=== PATIENT | male | born 1965 | race Caucasian/White ===

== ENCOUNTER → 2020-10-12 10:20 | Outpatient (BNV) | payer BC, SELFPAY | PROVIDERS: PCP Internal Medicine; Visit Provider Internal Medicine | DX: D72.819 Decreased white blood cell count, unspecified (principal) | CPT/HCPCS: 99213; 99214 ==

== ENCOUNTER 2020-10-30 11:09 | Outpatient (REF) | payer BC, SELFPAY ==
[2020-11-01 13:12] LABS: Transglutaminase Ab IgG 3 U/mL; Transglutaminase IgA 1 U/mL
[2020-11-01 15:56] LABS: Gliadin Deamidated IgA Ab 5 Units; Gliadin Deamidated IgG Ab 14 Units
[2020-11-01 17:57] LABS: Immunoglobulin A 183 mg/dL (47-310)
[2020-11-04 00:27] LABS: Endomysial IgA Antibody Negative (Negative)
== END 2020-10-30 11:10 | disposition home or self-care (01) ==
LOC: HO.LAB 11:09
PROVIDERS: PCP Internal Medicine; Visit Provider Internal Medicine
DX: R10.84 Generalized abdominal pain (principal)
CPT/HCPCS: 36415; 82784; 83516; 86255; 86256

== ENCOUNTER 2020-11-12 09:15 | Outpatient (REF) | payer BC, SELFPAY ==
--- NOTE | 2020-11-12 | US_ITS ---
EXAMINATION: US ABDOMEN COMPLETE CLINICAL INFORMATION: Abdominal pain. COMPARISON: None TECHNIQUE: Real-time imaging of the abdominal viscera. Technically difficult study secondary to bowel gas. FINDINGS: PANCREAS: Obscured by overlying bowel gas. ABDOMINAL AORTA: The proximal, mid, and distal segments are normal in caliber. INFERIOR VENA CAVA: Visualized portions are normal. LIVER: There is mildly homogeneously increased echotexture present consistent with fatty infiltration. The liver contour is normal. No focal hepatic lesion. There is no intrahepatic biliary duct dilatation seen. GALLBLADDER: Normal. The gallbladder is physiologically distended without evidence of stones, sludge, polyps, wall thickening or pericholecystic fluid. COMMON BILE DUCT: Normal in caliber measuring 0.3 cm in diameter. RIGHT KIDNEY: Normal. No hydronephrosis. No renal calculi or focal parenchymal lesions. The kidney measures 11.2 cm in maximum dimension. LEFT KIDNEY: Normal. No hydronephrosis. No renal calculi or focal parenchymal lesions. The kidney measures 11.8 cm in maximum dimension. SPLEEN: Normal. The spleen measures 13.3 cm in maximum dimension. FREE FLUID: None. US/US abdomen complete IMPRESSION: Fatty infiltration of the liver. Study somewhat limited due to overlying bowel gas.
== END 2020-11-12 09:16 | disposition home or self-care (01) ==
LOC: HO.US 09:15
PROVIDERS: PCP Internal Medicine; Visit Provider Internal Medicine
DX: R10.84 Generalized abdominal pain (principal)
CPT/HCPCS: 76700

== ENCOUNTER 2020-11-28 09:25 | Day surgery (SDC) | payer BC, SELFPAY ==
[2020-11-19 19:57] VITALS: BMI 30.1
--- NOTE | 2020-11-27 09:32 | P.CONAN_ITS ---
Documented by User: Dyan Browning 11/27/20 09:33 HPI - Anesthesia Eval Consult details Narrative: 55yo M for Upper Endoscopy and Colonoscopy [facility] Past Medical History Medical History Acne rosacea Arthritis Depression GERD (gastroesophageal reflux disease) Impotence Family History Family History Brother Pancreatic cancer Maternal Uncle Leukemia Colon cancer Maternal Uncle Liver cancer Father Heart disease Surgical History Surgical History H/O hand surgery History of colonoscopy Social History Social History Alcohol intake: current Alcohol intake frequency: a few times a week Smoking Status: Never smoker Tobacco Type: Cigarette Packs Per Day: 1 Second Hand Smoke Exposure: No Use of substances other than those prescribed or required for medical reasons: No Advance Directives: No Advance Directives Information Provided: No Advance Directives on File: No Recently lost weight without trying: No Meds Allergies Allergy/AdvReac Type Severity Reaction Status Date / Time SEASONAL ALLERGIES Allergy Mild ITCHY Uncoded 08/09/20 15:45 EYES, H/A, RUNNY NOSE Home Medications Medication Instructions Recorded Confirmed Type fluticasone propionate [Flonase] 1 spray INTRANASAL DAILY 09/10/20 11/19/20 History ergocalciferol (vitamin D2) 1,000 unit PO DAILY 10/12/20 11/19/20 History [Vitamin D2] tamsulosin 0.4 mg PO DAILY 10/12/20 11/19/20 History Exam Exam Date and Time: November 27, 2020 0932 Height,Weight and Vital Signs: Height 5 ft 10 in Weight 95.254 kg Pertinent Lab Results Pertinent Lab Results: Laboratory Tests 10/12/20 10/12/20 10:33 10:33 WBC 2.9 L Hgb 13.5 L Hct 38.9 L Plt Count 193 Sodium 139 Potassium 4.3 Chloride 105 Carbon Dioxide 27 BUN 18 H Creatinine 1.12 Assessment and Plan Assessment Anesthesia Assessment: Chart Reviewed Documented by User: Aurora Garcia 11/28/20 09:50 PMFSH Past Medical History Medical History Acne rosacea Arthritis Depression GERD (gastroesophageal reflux disease) Impotence Family History Family History Brother Pancreatic cancer Maternal Uncle Leukemia Colon cancer Maternal Uncle Liver cancer Father Heart disease Surgical History Surgical History H/O hand surgery History of colonoscopy Social History Social History Alcohol intake: current Alcohol intake frequency: a few times a week Smoking Status: Never smoker Tobacco Type: Cigarette Packs Per Day: 1 Second Hand Smoke Exposure: No Use of substances other than those prescribed or required for medical reasons: No Advance Directives: No Advance Directives Information Provided: No Advance Directives on File: No Recently lost weight without trying: No Meds Allergies Allergy/AdvReac Type Severity Reaction Status Date / Time SEASONAL ALLERGIES Allergy Mild ITCHY Uncoded 08/09/20 15:45 EYES, H/A, RUNNY NOSE Home Medications Medication Instructions Recorded Confirmed Type fluticasone propionate [Flonase] 1 spray INTRANASAL DAILY 09/10/20 11/19/20 History ergocalciferol (vitamin D2) 1,000 unit PO DAILY 10/12/20 11/19/20 History [Vitamin D2] tamsulosin 0.4 mg PO DAILY 10/12/20 11/19/20 History Exam Airway Mallampati Class: II TM Dist: >3cm Neck ROM: Full Heart: RRR Lungs: CTA BL Assessment and Plan Assessment Anesthesia Assessment: Anesthesia Plan Discussed and Chart Reviewed Final Anesthetic Review NPO: Yes (Sip water with med) ASA Class: II Final Preanesthetic Review: No Changes in Pt Med Stat and Consent Obtained/Reviewed Patient Risk: Intermediate Procedure Risk: Intermediate Anesthetic Plan Anesthetic Plan: MAC: Disposition: Standard PACU
[2020-11-28 09:48] VITALS: BP 117/72; PULSE 55; RESP 16; TEMP 36.1; O2SAT 98
[2020-11-28] MEDS: Lactated Ringers 1,000 ML 100 ML IVCONT (09:58)
[2020-11-28 10:14] VITALS: BP 123/69; PULSE 57; RESP 18; O2SAT 99
[2020-11-28 10:59] VITALS: BP 98/56; PULSE 51; RESP 12; TEMP 36.1; O2SAT 97
--- NOTE | 2020-11-28 11:01 | PM.OP ---
Brief Operative Note Date of Service: 11/28/20 Pre-op diagnosis: Screening, GERD Post-op diagnosis: other (Hiatal hernia, R/O Albarado's esophagus, R/O celiac disease, diverticulosis, Internal hemorrhoids) Procedure: EGD with biopsies, Colonoscopy to cecum and TI Surgeon: Darren Awan Anesthesia: MAC Estimated blood loss (mL): 3.0 Pathology: other (A. Descending duodenum B. EG Junction at 36cm C. Esophagus at 34cm) Condition: stable Disposition: PACU
[2020-11-28 11:14] VITALS: BP 123/64; PULSE 57; RESP 18; TEMP 36.1; O2SAT 99
--- NOTE | 2020-11-28 11:33 | OP_ITS ---
SURGEON: Darren Awan MD INDICATIONS: The patient presents for evaluation of gastroesophageal reflux, abdominal discomfort, colorectal cancer screening, and family history of colon cancer. Full consent was obtained from him for this, including risks of bleeding and perforation. PREOPERATIVE DIAGNOSIS: POSTOPERATIVE DIAGNOSIS: PROCEDURE PERFORMED: Esophagogastroduodenoscopy with biopsies and colonoscopy to cecum and terminal ileum. ESTIMATED BLOOD LOSS: COMPLICATIONS: ANESTHESIA: Monitored anesthesia care. ASSISTANTS: SPECIMENS: PREOPERATIVE DIAGNOSES: Gastroesophageal reflux, abdominal discomfort, colorectal cancer screening, and family history of colon cancer. POSTOPERATIVE DIAGNOSES: Gastroesophageal reflux, abdominal discomfort, colorectal cancer screening, family history of colon cancer, hiatal hernia, probable Albarado's esophagus, rule out celiac disease, sigmoid diverticulosis, and internal hemorrhoids. DESCRIPTION OF PROCEDURE: The patient was placed in the left lateral decubitus position. The Olympus video gastroscope was passed in the posterior oropharynx and upper esophagus under direct vision. The scope was passed slowly into the distal esophagus. The gastroesophageal junction appeared at 36 cm. Extending from this to 34 cm, was a circumferential segment of probable Albarado's mucosa. There was no sign of any esophageal lesions, ulceration, nor esophagitis. The scope was entered into the stomach. There was a hiatal hernia with the diaphragmatic indentation seen at 40 cm. The hiatal hernia mucosa appeared normal. The scope was advanced to the pylorus, and the duodenum was cannulated to the descending portion. The duodenum including the bulb appeared normal without mass or ulceration. Biopsies were obtained in the second and third portions of duodenum. The scope was withdrawn back into the stomach. The gastric antrum and body appeared normal with good peristalsis. Scope was retroflexed visualizing the proximal stomach carefully, which appeared normal, without any sign of mass or ulceration. Scope was straightened and withdrawn back into the esophagus. I then obtained multiple biopsies just above the EG junction at 36 cm and at the squamocolumnar junction at 34 cm. Proximal to 34 cm, the esophageal mucosa appeared normal. The scope was withdrawn from the patient. He was turned around for the colonoscopy. The digital rectal exam revealed no abnormalities. The Olympus video pediatric colonoscope was entered into the rectum and advanced to the cecum with the assistance of abdominal wall pressure. Once in the cecum, I did identify normal-appearing cecal pouch with appendiceal orifice and a normal-appearing ileocecal valve. The terminal ileum was cannulated and appeared normal. Scope was withdrawn back into the colon. The entire cecum and ileocecal valve appeared normal. The scope was slowly withdrawn assessing all mucosal surfaces carefully. Preparation was excellent. I did not visualize any sign of polyps, colitis, nor angiodysplasia. There was a mild amount of sigmoid diverticulosis. In the rectum, scope was retroflexed visualizing internal hemorrhoids, but no other pathology. The rectal mucosa appeared normal. The scope was straightened and withdrawn from the patient. He tolerated both the procedures well and was returned to the recovery area in stable condition. IMPRESSION: 1. Hiatal hernia, probable Albarado's esophagus. 2. Rule out celiac disease. 3. Diverticulosis. 4. Internal hemorrhoids. PLAN: The results of the biopsy will be checked. If there is evidence of Albarado's esophagus without dysplasia, I would recommend a repeat upper endoscopy in 3 years for further surveillance. He was advised to continue his daily omeprazole. I would recommend a repeat colonoscopy in 5 years for further screening. He was advised not to use any aspirin or NSAIDs for 1 week. A recent abdominal ultrasound was negative other than what appeared to be some fatty liver, although recent LFTs were normal. There were no evidence of any gallstones. If things are stable, he will see me on a p.r.n. basis. Of note, he has been doing better on a regimen of p.r.n. dicyclomine and I did advise him to continue that as well. MD CESAR Sexton/NEREIDA / [phone]
--- NOTE | 2020-11-28 11:35 | HO.POSTANES ---
Post Anesthesia Evaluation Post Anesthesia Evaluation Vital Signs: Vital Signs Temp Pulse Resp BP Pulse Ox 11/28/20 11:14 96.9 F 57 18 123/64 99 11/28/20 10:59 96.9 F 51 12 98/56 L 97 11/28/20 10:14 57 18 123/69 99 11/28/20 09:48 96.9 F 55 16 117/72 98 Anesthesia: Monitored Mental Status: Awake Pain Control: Satisfactory Nausea/Vomiting: None Hydration: Adequate Anesthesia-Related Issues: No Anes. Related Issues
== END 2020-11-28 11:45 | disposition home or self-care (01) ==
PROVIDERS: PCP Internal Medicine; Visit Provider Internal Medicine
PROC: (CPT 45378; principal; 2020-11-28 10:40)
DX: Z12.11 Encounter for screening for malignant neoplasm of colon (principal); Z80.0 Family history of malignant neoplasm of digestive organs; K57.30 Diverticulosis of large intestine without perforation or abscess without bleeding; K64.8 Other hemorrhoids; K21.9 Gastro-esophageal reflux disease without esophagitis; K44.9 Diaphragmatic hernia without obstruction or gangrene
CPT/HCPCS: 45378; 43239; 88305

== ENCOUNTER 2021-04-10 11:26 | Outpatient (REF) | payer BC, SELFPAY ==
[2021-04-10 14:29] LABS: Alanine Aminotransferase 22 U/L (0-40); Anion Gap 10 (12-20); Aspartate Amino Transferase 22 U/L (5-37); Blood Urea Nitrogen 18 mg/dL (9-16); Calcium 9.1 mg/dL (8.4-10.2); Carbon Dioxide 29 mmol/L (22-29); Chloride 105 mmol/L (96-108); Cholesterol 187 mg/dL; Creatinine Clr Calc Pharmacy 92.9; Estimated Glomerular Filt Rate > 60; Glucose Fasting 81 mg/dL (60-99); HDL Cholesterol 66 mg/dL; LDL Cholesterol Calculated 106 mg/dl; Potassium 4.4 mmol/L (3.3-5.1); Sodium 140 mmol/L (135-145); Triglycerides 76 mg/dL
[2021-04-10 14:55] LABS: Vitamin D 25-OH Total 31.6 ng/mL (>30)
== END 2021-04-10 11:27 | disposition home or self-care (01) ==
LOC: HO.HMGCLDS 11:26
PROVIDERS: PCP Internal Medicine; Visit Provider Internal Medicine
DX: Z00.01 Encounter for general adult medical examination with abnormal findings (principal); E55.9 Vitamin D deficiency, unspecified; I10 Essential (primary) hypertension
CPT/HCPCS: 36415; 80048; 80061; 82306; 84450; 84460

== ENCOUNTER 2022-05-05 08:36 | Outpatient (REF) | payer BC, SELFPAY ==
[2022-05-05 13:27] LABS: Alanine Aminotransferase 16 U/L (0-40); Anion Gap 13 (12-20); Aspartate Amino Transferase 21 U/L (5-37); Blood Urea Nitrogen 20 mg/dL (9-16); Calcium 8.9 mg/dL (8.4-10.2); Carbon Dioxide 26 mmol/L (22-29); Chloride 106 mmol/L (96-108); Cholesterol 189 mg/dL; Estimated Glomerular Filt Rate > 60; Glucose Fasting 95 mg/dL (60-99); HDL Cholesterol 71 mg/dL; LDL Cholesterol Calculated 109 mg/dl; Potassium 4.6 mmol/L (3.3-5.1); Sodium 140 mmol/L (135-145); Triglycerides 48 mg/dL
[2022-05-05 13:28] LABS: PSA,Total (Free>4and<10) 0.33 ng/mL (0.00-4.00); Vitamin D 25-OH Total 40.2 ng/mL (>30)
== END 2022-05-05 08:37 | disposition home or self-care (01) ==
LOC: HO.HMGCLDS 08:36
PROVIDERS: PCP Internal Medicine; Visit Provider Internal Medicine
DX: Z00.01 Encounter for general adult medical examination with abnormal findings (principal); Z12.5 Encounter for screening for malignant neoplasm of prostate; E55.9 Vitamin D deficiency, unspecified; F32.9 Major depressive disorder, single episode, unspecified
CPT/HCPCS: 36415; 80048; 80061; 82306; 84153; 84450; 84460

== ENCOUNTER 2023-03-06 06:20 | Outpatient (REF) | payer BC, SELFPAY ==
--- NOTE | ~2023-03-06 | XR_ITS ---
EXAMINATION: XR WRIST, LEFT CLINICAL INFORMATION: Wrist pain COMPARISON: None available. TECHNIQUE: 3 views of the left wrist. FINDINGS: Severe triscaphe joint arthritis. Moderate first CMC arthritis. No acute fracture or dislocation is seen. 2 mm density in the soft tissues volar to the first proximal phalanx shaft. 2 mm density in the dorsal subcutaneous tissues at the level of the distal radial metaphysis. These probably reflect foreign bodies. 1 mm punctate density in the volar soft tissues at the level of the carpal bones, which on the additional views this projected adjacent to the ulna styloid process. No bony erosion seen. XR/XR wrist LT min 3V IMPRESSION: *No acute osseous abnormality. *Severe triscaphe joint arthritis. Moderate first CMC arthritis. *Small radiopaque densities, probably reflecting foreign bodies . 2 mm foreign body, palmar to the first proximal phalanx. 2 mm foreign in the dorsal soft tissues at the level of the distal radial metaphysis. *Punctate density in the volar soft tissues at the level of the carpal bones, indeterminate, could represent nonspecific calcification or foreign body
== END 2023-03-06 06:21 | disposition home or self-care (01) ==
LOC: HO.HOSX 06:20
PROVIDERS: Visit Provider Physician Assistant
DX: M25.532 Pain in left wrist (principal); M18.12 Unilateral primary osteoarthritis of first carpometacarpal joint, left hand
CPT/HCPCS: 73110

== ENCOUNTER 2023-03-10 07:20 | Outpatient (REF) | payer BC, SELFPAY | END 2023-03-10 07:21 | disposition home or self-care (01) | LOC: HO.MDS 07:20 | PROVIDERS: PCP Internal Medicine; Visit Provider Internal Medicine | DX: D50.9 Iron deficiency anemia, unspecified (principal) | CPT/HCPCS: 96365; J1756 ==

== ENCOUNTER 2023-03-17 07:26 | Outpatient (REF) | payer BC, SELFPAY | END 2023-03-17 07:27 | disposition home or self-care (01) | LOC: HO.MDS 07:26 | PROVIDERS: Visit Provider Internal Medicine | DX: D50.9 Iron deficiency anemia, unspecified (principal) | CPT/HCPCS: 96365; J1756 ==

== ENCOUNTER 2023-03-23 08:24 | Outpatient (REF) | payer BC, SELFPAY | END 2023-03-23 08:25 | disposition home or self-care (01) | LOC: HO.MDS 08:24 | PROVIDERS: Visit Provider Internal Medicine | DX: D50.9 Iron deficiency anemia, unspecified (principal) | CPT/HCPCS: 96365; J1756 ==

== ENCOUNTER 2023-04-21 08:57 | Outpatient (REF) | payer BC, SELFPAY ==
--- NOTE | ~2023-04-21 | XR_ITS ---
EXAMINATION: XR WRIST, RIGHT CLINICAL INFORMATION: Right wrist pain. COMPARISON: Right hand x-rays of 01/05/2012 and right wrist x-rays of 04/18/2008. TECHNIQUE: Right wrist 3 views. PA, lateral, and oblique views of the right wrist. FINDINGS: Normal osseous mineralization is noted. There is fusion of the 1st intercarpal joint when compared to previous x-ray of 2008 with surrounding mild hypertrophic osteophytic changes. Mild osteoarthritic changes are noted at 1st carpometacarpal articulation. No focal erosion is seen. A 0.1 cm curvilinear radiopaque foreign body projecting on the ulnar aspect at the base of the 2nd proximal phalanx is a stable finding since previous x-ray of 2008. No soft tissue calcifications are seen. XR/XR wrist RT min 3V IMPRESSION: Osteoarthritic changes on the radial side of the wrist as described above; progressively increased since the previous study of 2007.
== END 2023-04-21 08:58 | disposition home or self-care (01) ==
LOC: HO.HOSX 08:57
PROVIDERS: PCP Internal Medicine; Visit Provider Orthopaedic Surgery
DX: M25.531 Pain in right wrist (principal); M18.12 Unilateral primary osteoarthritis of first carpometacarpal joint, left hand
CPT/HCPCS: 73110

== ENCOUNTER 2023-05-20 15:06 | Outpatient (REF) | payer BC, SELFPAY | END 2023-05-20 15:07 | disposition home or self-care (01) | LOC: HO.MRI 15:06 | PROVIDERS: PCP Internal Medicine; Visit Provider Orthopaedic Surgery | DX: M25.532 Pain in left wrist (principal) | CPT/HCPCS: 73221 ==

== ENCOUNTER 2023-07-01 11:08 | Outpatient (AMB) | payer BC, SELFPAY ==
[2023-07-01 11:26] VITALS: BMI 29.0
--- NOTE | 2023-07-01 11:26 | MHC.OFFVIS ---
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 Patient reports no change in symptoms since his last visit. Allergies SEASONAL ALLERGIES Allergy (Mild, Uncoded 07/01/23 11:28) ITCHY EYES, H/A, RUNNY NOSE HPI ov- Wrist LT MRI review HPI Details Collin is a 58 year old right hand dominant man who presents for an MRI review of his left wrist pain. 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 He denies any changes in his symptoms. He says he had difficulties checking in with the front [employer] He continues to have sharp pain in the dorsal aspect of his wrist, which is worse with overuse of his hand. He says his pain has been intermittent for ~9 months now, is worse at the end of a work shift, and is painful at night which is affecting his sleep. He says his pain has been somewhat improved in the last few weeks, as he says he has been doing different tasks at work this week. He also says he has numbness is in the back of his hand. Hx of partial right wrist fusion performed by Dr. Ortiz.?He has had more limited wrist range of motion following the surgery, but less pain. ? PENDING SALE TO [facility] Medical History Acne rosacea Anemia Annual visit for general adult medical examination with abnormal findings Arthritis Benign prostatic hyperplasia COVID-19 vaccination declined Esophagitis determined by biopsy GERD (gastroesophageal reflux disease) Hiatal hernia Impotence Pain and swelling of left wrist Recurrent major depressive disorder, in remission Refused influenza vaccine Vitamin D deficiency Surgical History H/O hand surgery History of colonoscopy Family History Brother Pancreatic cancer Maternal Uncle Leukemia Colon cancer Maternal Uncle Liver cancer Father Heart disease Social History Household Members: Spouse Housing: House Alcohol intake: current Alcohol intake frequency: a few times a week Patient Tobacco Use Status: Former Tobacco user Cigarette Packs Per Day: 1 e-Cigarette/Vaping Use: Never Used Second Hand Smoke Exposure: No 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) Current occupational status: employed 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, 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 Cognitive needs: No Hearing needs: No Vision needs: Yes Physical Exam Vital Signs: BMI result Body Mass Index 29.0 Extrem Other: Evaluation of Left Upper Extremity: The patient is alert, oriented, and in no acute distress Neuro: Median, Ulnar, Radial nerves motor and sensory intact and sensation is normal to the tips of all digits Vascular: Cap refill brisk ROM: He can make a fist with good strength and no pain, and extend all his digits Full and symmetrical pronosupination He has ~75 degrees flexion & about 75 degrees extension of his left wrist His left wrist ROM is better when compared to his right wrist. Tender over the basal joint Tender over the STT joint He was more tender over the mid-carpal joint Off these, the mid-carpal tended to be what bothers him the most Radiographs: 3 views left wrist from 03/06/23 were reviewed by me today in clinic. They show almost complete loss of the STT joint, and basal joint osteoarthritis, with osteophyte formation. He has some narrowing of the mid-carpal joint between the lunate and the capitate. Left wrist MRI: IMPRESSION: 1. There is arthritis in the wrist, detailed above. More prominent changes include severe triscaphe joint arthritis. There is capitate-lunate arthritis, with dorsal tilt of the lunate and dorsal subluxation of the capitate, as described above. ? 2. Moderate wrist joint effusion. Small distal radioulnar joint effusion. ? 3. Flexor carpi radialis tenosynovitis, with the probable component of tendinosis. ? 4. Scapholunate ligament degeneration with probable component of focal fraying/partial tear. Lunotriquetral ligament degeneration. ? 5. Proximal surface fraying/partial tear of the triangular fibrocartilage measuring 5 mm transverse. Dictated By: Aguilar Soto MD 05/25/23 Assessment & Plan Assessment & Plan (1) Left wrist pain: Code(s): M25.532 - Pain in left wrist (2) CMC arthritis, thumb, degenerative: Code(s): M18.9 - Osteoarthritis of first carpometacarpal joint, unspecified Plan Assessment & Plan: 1. Left wrist pain Improved over the last few weeks, with different activities at work. He is most tender to palpation directly over the midcarpal joint. He has more mild tenderness over the STT and basal joints. I educated him about this condition I discussed operative & non-operative treatment options, and reviewed his MRI with him We discussed a possible midcarpal joint arthrodesis. I would not recommend this at this time, as his pain is much better, it would reduce his range of motion and he would be off of work for several months during recovery. He agrees. Most importantly, his his wrist is feeling better with activity modification. Should he developed pain in his left wrist again, I would likely start with a wrist injection, and see if that might improve things He should continue with activity as tolerated and wear his wrist brace with heavier activities and when symptomatic 2. Left wrist osteoarthritis In the Basal joint & STT joint It appears he has lost almost all of the STT joint space, and may be working on an auto-arthrodesis of the STT joint 3. History of right STT arthrodesis Performed several years ago at an outside clinic He will follow up p.r.n.. He has my card. He is happy with the current plan Please note that greater than 25 minutes was spent with this patient going over the history, evaluating the patient and radiographs, formulating possible treatment options, discussing them with the patient, and documenting the visit. Scribed for Hannah Perez MD by Hardik Mchugh, medical and scientific illustrator, on 07/01/23 at 12:10 PM, EST. Coding Level of Care Code Est Pt Level 4 (81859) Diagnoses Left wrist pain M25.532 CMC arthritis, thumb, degenerative M18.9
== END 2023-07-01 12:18 | disposition home or self-care (01) ==
LOC: HO.HOS 11:08
PROVIDERS: PCP Internal Medicine; Visit Provider Orthopaedic Surgery
DX: M25.532 Pain in left wrist (principal); M18.9 Osteoarthritis of first carpometacarpal joint, unspecified
CPT/HCPCS: 99213

== ENCOUNTER → 2023-07-01 11:08 | Outpatient (BNVA) | payer BC, SELFPAY | PROVIDERS: PCP Internal Medicine; Visit Provider Orthopaedic Surgery ==

== ENCOUNTER 2024-03-22 13:44 | Outpatient (REF) | payer BC, SELFPAY ==
--- NOTE | ~2024-03-22 | FL_ITS ---
EXAMINATION: XR FLUOROSCOPY WITH IMAGES CLINICAL INFORMATION: Primary osteoarthritis. COMPARISON: None available. TECHNIQUE: Fluoroscopy Supervised By: Dr. Perez. Fluoroscopy Time: 7.7 sec. Cumulative Dose: Not documented. DAP: 5336.8 Gycm2. Images: 1. FINDINGS: Intraoperative fluoroscopy and spot films were performed during a procedure in the OR. A needle is present overlying the radiocarpal joint Please correlate with Dr. Perez' report for complete details. FL/FL guided needle placement IMPRESSION: Intraoperative fluoroscopy and spot films were obtained. Please see Dr. Perez' report for complete details.
== END 2024-03-22 13:45 | disposition home or self-care (01) ==
LOC: HO.HOSX 13:44
PROVIDERS: PCP Internal Medicine; Visit Provider Orthopaedic Surgery
DX: M19.032 Primary osteoarthritis, left wrist (principal)
CPT/HCPCS: 20605; 77002; J1010

== ENCOUNTER 2024-03-22 13:44 | Outpatient (AMB) | payer BC, SELFPAY ==
[2024-03-22 14:14] VITALS: BMI 29.8
--- NOTE | 2024-03-22 14:14 | MHC.OFFVIS ---
Vital Signs 03/22/24 14:14 Height 5 ft 11 in Weight 214 lb BMI 29.8 Intake Visit Reasons: O/V left hand CMC OA Intake Note: Collin 58 yr old male presents today for his follow up visit for his left hand CMC OA to discuss injection. States his pain has not improved. He tries to use his brace at work but it interferers with his work. Patient would like to discuss injection. Allergies SEASONAL ALLERGIES Allergy (Mild, Uncoded 03/22/24 14:20) ITCHY EYES, H/A, RUNNY NOSE HPI HPI O/V left hand CMC OA: Details: Collin is a 58 year old right hand dominant man who returns to discuss his left wrist pain. 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 He denies any changes in his symptoms. He continues to have sharp pain in the dorsal aspect of his wrist, which is worse with overuse of his hand. He says his pain has been intermittent for ~17 months now, is worse at the end of a work shift, and is painful at night which is affecting his sleep. He has tried wearing his wrist brace at work but this interferes with his duties & performance. He says he smashed his fingers recently while at work. He says he had bruising under his nail which has been growing out. He also says he has numbness is in the back of his hand. Hx of partial right wrist fusion performed by Dr. Ortiz.?He has had more limited wrist range of motion following the surgery, but less pain. ? [facility] Medical History Acne rosacea Anemia Annual visit for general adult medical examination with abnormal findings Arthritis Benign prostatic hyperplasia COVID-19 vaccination declined Esophagitis determined by biopsy GERD (gastroesophageal reflux disease) Hiatal hernia Impotence Pain and swelling of left wrist Recurrent major depressive disorder, in remission Refused influenza vaccine Vitamin D deficiency Surgical History History of colonoscopy H/O hand surgery Family History Brother Pancreatic cancer Maternal Uncle Leukemia Colon cancer Maternal Uncle Liver cancer Father Heart disease Social History (Reviewed 03/22/24 @ 14:20 by PIEDAD Bennett Household Members: Spouse Housing: House Alcohol intake: current Alcohol intake frequency: a few times a week Patient Tobacco Use Status: Former Tobacco user Cigarette Packs Per Day: 1 e-Cigarette/Vaping Use: Never Used Second Hand 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 Exposure: 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, 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 Cognitive needs: No Hearing needs: No Vision needs: Yes Physical Exam Vital Signs: BMI result Body Mass Index 29.8 Extrem Other: Evaluation of Left Upper Extremity: The patient is alert, oriented, and in no acute distress Neuro: Median, Ulnar, Radial nerves motor and sensory intact and sensation is normal to the tips of all digits Vascular: Cap refill brisk ROM: He can make a fist with good strength and no pain, and extend all his digits Full and symmetrical pronosupination He has ~75 degrees flexion & about 75 degrees extension of his left wrist His left wrist ROM is better when compared to his right wrist. No tenderness over the STT joint Most tender over the radioscaphoid joint, both volarly and proximally. This was confirmed on fluoroscopic images. Radiographs: 3 views left wrist from 03/06/23 were reviewed by me today in clinic. They show almost complete loss of the STT joint, and basal joint osteoarthritis, with osteophyte formation. He has some narrowing of the mid-carpal joint between the lunate and the capitate. Left wrist MRI: IMPRESSION: 1. There is arthritis in the wrist, detailed above. More prominent changes include severe triscaphe joint arthritis. There is capitate-lunate arthritis, with dorsal tilt of the lunate and dorsal subluxation of the capitate, as described above. ? 2. Moderate wrist joint effusion. Small distal radioulnar joint effusion. ? 3. Flexor carpi radialis tenosynovitis, with the probable component of tendinosis. ? 4. Scapholunate ligament degeneration with probable component of focal fraying/partial tear. Lunotriquetral ligament degeneration. ? 5. Proximal surface fraying/partial tear of the triangular fibrocartilage measuring 5 mm transverse. Dictated By: Aguilar Soto MD 05/25/23 Office Procedures Fracture Care Details: No fracture, injection 29145, and 58070 for using the FluoroScan for needle guidance. Fracture Billing Code: Fracture Billing Code Assessment & Plan Assessment & Plan (1) Left wrist pain: Code(s): M25.532 - Pain in left wrist Category: Medical (2) CMC arthritis, thumb, degenerative: Code(s): M18.9 - Osteoarthritis of first carpometacarpal joint, unspecified Category: Medical (3) Arthritis of left wrist: Code(s): M19.032 - Primary osteoarthritis, left wrist Category: Medical Plan Assessment & Plan: 1. Left wrist midcarpal osteoarthritis He is most tender to palpation directly over the radioscaphoidjoint. 2. Left STT joint osteoarthritis Near complete loss at the STT joint Minimal tenderness over the STT joint today Evidence of narrowing between the lunate & capitate, and between the capitate & trapezoid It appears he has lost almost all of the STT joint space, and may be working on an auto-arthrodesis of the STT joint 3. Left radiocarpal arthritis He was most tender to palpation today over the radioscaphoid joint both dorsally and volarly. This Was confirmed on fluoroscopic images. I educated him about these conditions I discussed operative & non-operative treatment options We discussed a possible partial wrist arthrodesis in the future if his symptoms do not improve. We would both like to avoid this if possible. I discussed activity modification, he should limit or avoid any heavy or repetitive pinching, gripping, or lifting activities He was given a new comfort cool brace to wear with heavy activities, and while at work. I recommend a left wrist injection, and he is in agreement Injection #1 : The risks and benefits of a steroid injection including but not limited to risk of damage to blood vessels, nerve, tendon, infection, skin bleaching, persistent or worsening pain, and failure to improve symptoms were discussed with the patient and they wish to proceed with the steroid injection. Using the FluoroScan we confirmed that he was most tender to palpation over the radioscaphoid joint. He was not tender to palpation over the STT joint. Once consent was obtained the skin over the dorsal aspect of the radioscaphoid joint, just proximal to the scapholunate interval was sterilely prepped. The joint was then injected with a combination of 1 mL of (40 mg/ml} Depo-Medrol and 1% plain Lidocaine, using the Fluoroscan for needle guidance. The patient appears to have tolerated the procedure well and with no complications. He had good early relief before leaving clinic today. He knows that they may not have another steroid injection into this joint for least 4 months. He will follow up in 6-8 weeks to see how he is doing. Originally we had thought that he might get a 2nd injection into the ulnocarpal joint when we thought he was 1st having STT arthritis. We will evaluate him at that time and see how he is doing. I did warn him that we can not inject into the same joint for 4 months. 2. History of right STT arthrodesis, DOS: ~[address] Ortiz at an outside clinic Please note that greater than 35 minutes was spent with this patient going over the history, evaluating the patient and radiographs, formulating possible treatment options, discussing them with the patient, and documenting the visit. Scribed for Hannah Perez MD by Hardik Mchugh, biomedical equipment technician, on 03/22/24 at 2:40 PM, EST. Orders: Orders FL guided needle placement Today M19.032 - Primary osteoarthritis, left wrist Coding Level of Care Code Est Pt Level 4 (65849) Diagnoses Left wrist pain M25.532 CMC arthritis, thumb, degenerative M18.9 Arthritis of left wrist M19.032 CPT Codes Fracture Care - Fracture Billing Code: Fracture Billing Code ([id number])
== END 2024-03-22 15:03 | disposition home or self-care (01) ==
PROVIDERS: PCP Internal Medicine; Visit Provider Orthopaedic Surgery
DX: M25.532 Pain in left wrist (principal); M19.032 Primary osteoarthritis, left wrist; M18.9 Osteoarthritis of first carpometacarpal joint, unspecified
CPT/HCPCS: 20605; 77002; 99214

== ENCOUNTER 2024-04-20 09:19 | Outpatient (AMB) | payer BC, SELFPAY ==
[2024-04-20 09:40] VITALS: BP 106/62; PULSE 60; O2SAT 97; BMI 29.3
--- NOTE | 2024-04-20 09:40 | A.OFFPC_ITS ---
Vital Signs 04/20/24 09:40 Height 5 ft 11 in Weight 210 lb BMI 29.3 BP 106/62 Blood Pressure Location Lt brachial Position Sitting Pulse 60 Pulse Source Pulse Oximeter Pulse Oximetry (%) 97 Oxygen Delivery Method Room Air Intake Visit Reasons: PE Intake Note: Pt is here today for his PE: Last colonoscopy 11/28/20 Allergies No Known Allergies Allergy (Verified 11/28/24 02:30) Medication List - Last Reconciled 04/20/24 by Rina Hernandez MD citalopram 40 mg (2 x 20 mg) PO DAILY 90 days ibuprofen 200 mg PO Q6H PRN magnesium oxide 250 mg PO DAILY omeprazole 20 mg PO DAILY tamsulosin 0.4 mg PO DAILY Tobacco use date assessed: 04/20/24 Dental Screening Dental Screen Date: 04/20/24 Did you have a dental visit in the last 12 months?: Yes Did you have a dental problem in the last 6 months where you did not have access to dental care?: No Was dental information given to patient?: Patient has dentist HPI PE HPI Details 59-year-old male with past medical histo ry significant for osteoarthritis, benign prostatic hyperplasia, recurrent major depression in remission, and esophagitis determined by biopsy on EGD done in 2020 as well as hiatal hernia, here today for physical exam. He is up-to-date with his screening colonoscopy done in 2020 which showed presence of diverticulosis and internal hemorrhoids, done by Dr. Awan, with a repeat colonoscopy due again in 2025. He is up-to-date with his Shingrix vaccination given at the [facility] 2 years ago. Up-to-date with his Tdap and has had 2 COVID vaccines but does not want to get a COVID booster. Reminded to get his flu shot [facility] Medical History Iron deficiency anemia Seasonal allergies Benign prostatic hyperplasia Recurrent major depressive disorder, in remission Annual visit for general adult medical examination with abnormal findings Pain and swelling of left wrist COVID-19 vaccination declined Refused influenza vaccine Esophagitis determined by biopsy Hiatal hernia Vitamin D deficiency Anemia GERD (gastroesophageal reflux disease) Impotence Arthritis Acne rosacea Surgical History History of colonoscopy H/O hand surgery Family History Brother Pancreatic cancer Maternal Uncle Leukemia Colon cancer Maternal Uncle Liver cancer Father Heart disease Social History Household Members: Spouse Housing: House Alcohol intake: current Alcohol intake frequency: a few times a week Patient Tobacco Use Status: Former Tobacco user Cigarette Packs Per Day: 1 e-Cigarette/Vaping Use: Never Used Second Hand Smoke Exposure: No service: Yes ([employer]) Current occupational status: employed 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 1. Little interest or pleasure in doing things: not at all 2. Feeling down, depressed, or hopeless: not at all 3. Trouble falling or staying asleep, or sleeping too much: several days 4. Feeling tired or having little energy: several days 5. Poor appetite or overeating: not at all 6. Feeling bad about yourself - or that you are a failure or have let yourself or your family down: not at all 7. Trouble concentrating on things, such as reading the newspaper or watching television: several days 8. Moving or speaking so slowly that other people could have noticed. Or the opposite - being so fidgety or restless that you have been moving around a lot more than usual: not at all 9. Thoughts that you would be better off or of hurting yourself in some way: not at all Total score: 3 Depression Screening Interpretation: Positive (Currently on citalopram mg daily) Depression Screening Follow-up: Existing condition, In treatment and Community Mental Health Worker F/U Depression Screening Done: Yes Source: Developed by Drs. Darren Herrera, Michelle Talavera, Josesito Alvarado and colleagues, with an educational vanna from [employer]. Thrive Questionnaire Date Thrive assessed: 04/20/24 I am a: Patient What is your living situation today?: I have a steady place to live Within the past 12 months, did the food you bought not last and you didn't have the money to get more?: Never true Within the past 12 months, did you worry whether your food would run out before you got money to buy more?: Never true Do you have trouble paying for medicines?: No Do you have trouble getting transportation to medical appointments?: No Do you have trouble paying your heating and electricity bill?: No Do you have trouble taking care of your child, family member or friend?: No Do you have trouble with day-to-day activities such as bathing, preparing meals, shopping, managing finances, etc.?: No Are you currently unemployed and looking for a job?: No Are you interested in more education?: No Please select the resources that you would like help with: None THRIVE Score: 0 AUDIT C Alcohol Use Questionnaire (AUDIT-C) 1. How often do you have a drink containing alcohol?: 2-4 times a month 2. How many drinks containing alcohol do you have on a typical day when you are drinking?: 1 or 2 3. How often do you have six or more drinks on one occasion?: Less than monthly Total Score: 3 IRIS-7 AMB Questionnaire IRIS-7 Date IRIS - 7 assessed: 04/20/24 Feeling nervous, anxious, or on edge: 1 = Several days Not being able to stop or control worryin = Not at all Worrying too much about different things: 1 = Several days Trouble relaxin = Several days Being so restless that it is hard to sit still: 1 = Several days Becoming easily annoyed or irritable: 1 = Several days Feeling afraid as if something awful might happen: 0 = Not at all Total IRIS-7 score (0-4 normal; 5-9 mild; 10-14 moderate; 15-21 severe): 5 Source: Developed by Drs. Darren Herrera, Michelle Talavera, Josesito Alvarado and colleagues, with an educational vanna from [employer]. IRIS-7 Assessment Billing IRIS-7 Assessment Tool: IRIS-7 Assessment 22371 Review of Systems Const Denies body aches, Denies fatigue, Denies fever(s), Denies headache(s) and Denies weakness Eyes Denies change in vision ENT Denies dizziness and Denies headache(s) Card Denies chest pain, Denies lightheadedness, Denies palpitations and Denies dyspnea Resp Denies cough and Denies dyspnea GI Reports no additional complaints Denies urinary frequency and Denies urinary urgency Musc Reports as per HPI Skin/Breast Denies lesions and Denies rash Neuro Denies dizziness, Denies headache(s) and Denies weakness Psych Reports no additional complaints Endo Denies fatigue, Denies polydipsia, Denies polyuria and Denies palpitations Jony/Lymph Denies easy bruising Aller/Immun Denies seasonal rhinorrhea Physical exam (Primary Care) Vital Signs: Last Vital Signs Pulse 60 04/20/24 09:40 BP 106/62 04/20/24 09:40 Pulse Ox 97 04/20/24 09:40 Oxygen Delivery Method Room Air 04/20/24 09:40 BMI result Body Mass Index 29.3 Tobacco/Smoking Status: Tobacco use Status Tobacco use date assessed 04/20/24 04/20/24 09:42 Patient Tobacco Use Status Former Tobacco user 04/20/24 09:41 e-Cigarette/Vaping Use Never Used 04/20/24 09:41 PHQ-9: PHQ-9 Score PHQ-9: Total score 5 04/20/24 10:33 Depression Screening Interpretation: Positive (Currently on citalopram mg daily) Depression Screening Follow-up: Existing condition, In treatment and Community Mental Health Worker F/U Thrive Assessment: Date of Thrive Assessment Date Thrive assessed 04/20/24 04/20/24 09:46 Const General: cooperative, comfortable and no acute distress Orientation/consciousness: patient oriented x3 HENMT Head: Yes normocephalic Ears: hearing grossly normal bilaterally, external ears normal, TM's normal bilaterally and EAC's normal General nose exam: Normal external nose present Face and sinus: Yes face symmetric Mouth: Normal oral and palatal mucosa present, oropharynx normal and moist mucous membranes Eyes General: appearance normal, both eyes and all related structures Neck Neck: Yes full ROM, Yes no lymphadenopathy and Yes supple Chest Chest palpation & inspection: normal inspection of the chest and normal palpation of entire chest wall Resp Effort & Inspection: normal respiratory effort and able to speak in complete sentences Auscultation: clear to auscultation bilaterally Cardio Rate: regular rate Rhythm: regular rhythm Heart sounds: S1 normal heart sound present and S2 normal heart sound present GI Palpation (GI): Soft to palpation, nontender, no guarding and no masses Male General Exam: Yes normal external exam Back/Spine/Pelvis Thoracic/Lumbar Spine: straight leg raise negative bilaterally and paraspinal muscle tenderness on the right in the lower lumbar Skin General skin exam: no rashes or lesions noted Neuro General: patient oriented x3, gait normal, moves all extremities and no focal motor deficits Cognition (Neuro): normal cognition Gait exam (Neuro): Normal gait present Extrem General: Yes full ROM, Yes no joint enlargement, Yes no clubbing, cyanosis or edema and Yes normal gait Psych Appearance: grossly normal Mental Status: mental status grossly normal Speech and movement: Normal speech and movement present Affect: normal affect Attitude: cooperative Thought process: Normal thought process present Thought content: Normal thought content present Coding Level of Care Code Est Pt Prev Care 40-64y(90128) Diagnoses Leucopenia D72.819 Anemia D64.9 Esophagitis determined by biopsy K20.90 Refused influenza vaccine Z28.21 COVID-19 vaccination declined Z28.21 CMC arthritis, thumb, degenerative M18.9 Annual visit for general adult medical examination with abnormal findings Z00.01 Recurrent major depressive disorder, in remission F33.40 Benign prostatic hyperplasia N40.0 Additional Codes IRIS-7 Assessment Billing - IRIS-7 Assessment Tool: IRIS-7 Assessment 19931 ([id number])
== END 2024-04-20 11:33 | disposition home or self-care (01) ==
PROVIDERS: Visit Provider Internal Medicine
DX: D72.819 Decreased white blood cell count, unspecified (principal); D64.9 Anemia, unspecified; K20.90 Esophagitis, unspecified without bleeding; Z28.21 Immunization not carried out because of patient refusal; M18.9 Osteoarthritis of first carpometacarpal joint, unspecified; Z00.01 Encounter for general adult medical examination with abnormal findings; F33.40 Major depressive disorder, recurrent, in remission, unspecified; N40.0 Benign prostatic hyperplasia without lower urinary tract symptoms
CPT/HCPCS: 99499

== ENCOUNTER 2024-05-23 09:23 | Day surgery (SDC) | payer BC, SELFPAY ==
--- NOTE | 2024-05-20 09:23 | HO.ANESPROP2 ---
Documented by User: Dyan Browning NP 05/20/24 09:23 HPI - Anesthesia Eval Consult details Narrative: 58yo M for Upper Endoscopy PMF Active Problems Active Problems: All Active Problems Arthritis of left wrist (Acute) Left wrist pain (Acute) CMC arthritis, thumb, degenerative (Acute) Leucopenia (Chronic) Benign prostatic hyperplasia (Acute) Recurrent major depressive disorder, in remission (Acute) Annual visit for general adult medical examination with abnormal findings (Acute) COVID-19 vaccination declined (Acute) Refused influenza vaccine (Acute) Esophagitis determined by biopsy (Acute) Hiatal hernia (Acute) Anemia (Acute) Past Medical History Medical History Seasonal allergies Benign prostatic hyperplasia Recurrent major depressive disorder, in remission Annual visit for general adult medical examination with abnormal findings Pain and swelling of left wrist COVID-19 vaccination declined Refused influenza vaccine Esophagitis determined by biopsy Hiatal hernia Vitamin D deficiency Anemia GERD (gastroesophageal reflux disease) Impotence Arthritis Acne rosacea Family History Family History Brother Pancreatic cancer Maternal Uncle Leukemia Colon cancer Maternal Uncle Liver cancer Father Heart disease Surgical History Surgical History History of colonoscopy H/O hand surgery Social History Social History Household Members: Spouse Housing: House Alcohol intake: current Alcohol intake frequency: a few times a week Patient Tobacco Use Status: Former Tobacco user Cigarette Packs Per Day: 1 e-Cigarette/Vaping Use: Never Used 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, 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 Cognitive needs: No Hearing needs: No Vision needs: Yes Meds Allergies Allergy/AdvReac Type Severity Reaction Status Date / Time No Known Allergies Allergy Verified 05/19/24 17:28 Home Medications ?Medication ?Instructions ?Recorded ?Confirmed ?Last Taken ?Type ibuprofen 200 mg tablet 200 mg PO Q6H PRN Pain, Mild 04/16/23 10/12/23 Unknown History Assessment and Plan Assessment Anesthesia Assessment: Chart Reviewed Documented by User: Anusha Ceron MD 05/23/24 10:36 [facility] Past Medical History Medical History Seasonal allergies Benign prostatic hyperplasia Recurrent major depressive disorder, in remission Annual visit for general adult medical examination with abnormal findings Pain and swelling of left wrist COVID-19 vaccination declined Refused influenza vaccine Esophagitis determined by biopsy Hiatal hernia Vitamin D deficiency Anemia GERD (gastroesophageal reflux disease) Impotence Arthritis Acne rosacea Family History Family History Brother Pancreatic cancer Maternal Uncle Leukemia Colon cancer Maternal Uncle Liver cancer Father Heart disease Family history of problems with anesthesia: No Surgical History Surgical History History of colonoscopy H/O hand surgery History of Problems with Anesthesia: No Social History Social History Household Members: Spouse Housing: House Alcohol intake: current Alcohol intake frequency: a few times a week Patient Tobacco Use Status: Former Tobacco user Cigarette Packs Per Day: 1 e-Cigarette/Vaping Use: Never Used 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, 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 Cognitive needs: No Hearing needs: No Vision needs: Yes Meds Allergies Allergy/AdvReac Type Severity Reaction Status Date / Time No Known Allergies Allergy Verified 05/19/24 17:28 Home Medications ?Medication ?Instructions ?Recorded ?Confirmed ?Last Taken ?Type ibuprofen 200 mg tablet 200 mg PO Q6H PRN Pain, Mild 04/16/23 10/12/23 Unknown History Exam Height,Weight and Vital Signs: Height 5 ft 11 in Weight 92.533 kg Vital Signs Temp Pulse Resp BP Pulse Ox O2 Del Method 97.6 F 51 16 127/66 97 Room Air 05/23/24 09:53 05/23/24 09:53 05/23/24 09:53 05/23/24 09:53 05/23/24 09:53 05/23/24 09:53 Airway Mallampati Class: II Loose/Missing/Broken Teeth: Yes (Some missing. Denies broken or loose teeth) Heart: RRR Lungs: CTAB Assessment and Plan Assessment Anesthesia Assessment: Anesthesia Plan Discussed and Chart Reviewed Final Anesthetic Review Family History of Problems with Anesthesia: No History of Problems with Anesthesia: No NPO: Yes ASA Class: II Final Preanesthetic Review: No Changes in Pt Med Stat, Meds/Allgs Chart Reviewed, Consent Obtained/Reviewed and Anes Risks/Benef Reviewed Patient Risk: Low Procedure Risk: Low Assessment/Block/Sedation in SS: Assess/Block/Sedation-SS Anesthetic Plan Anesthetic Plan: GA and TIVA Disposition: Standard PACU
[2024-05-23 09:32] VITALS: BMI 28.4
[2024-05-23 09:53] VITALS: BP 127/66; PULSE 51; RESP 16; TEMP 36.4; O2SAT 97
[2024-05-23] MEDS: Lactated Ringers 1,000 ML 100 ML IVCONT (10:03)
[2024-05-23 10:31] VITALS: BP 107/45; PULSE 51; RESP 12; TEMP 36.1; O2SAT 95
--- NOTE | 2024-05-23 10:34 | PM.OP ---
Brief Operative Note Date of Service: 05/23/24 Pre-op diagnosis: Albarado's Post-op diagnosis: other (Same, Hiatal hernia) Procedure: EGD with biopsies, WATS brushingsMonica Surgeon: Darren Awan MD Anesthesia: MAC Was an Senior Windows Administrator used for this Procedure?: No Estimated blood loss (mL): 2.0 Pathology: other (A. Esophagus 34-36cm) Condition: stable Disposition: PACU
[2024-05-23 10:46] VITALS: BP 125/69; PULSE 54; RESP 16; TEMP 36.1; O2SAT 97
--- NOTE | 2024-05-23 11:28 | OP_ITS ---
DATE OF SERVICE: 05/23/2024 SURGEON: Darren Awan MD INDICATIONS: The patient presents for evaluation of gastroesophageal reflux and Albarado esophagus. Full consent was obtained from him for this, including risks of bleeding and perforation. PREOPERATIVE DIAGNOSIS: POSTOPERATIVE DIAGNOSIS: PROCEDURE PERFORMED: Esophagogastroduodenoscopy with biopsies, WATS brushings, and Cypher tissue analysis. ESTIMATED BLOOD LOSS: COMPLICATIONS: ANESTHESIA: Monitored anesthesia care. ASSISTANTS: SPECIMENS: PREOPERATIVE DIAGNOSES: Gastroesophageal reflux and Albarado esophagus. POSTOPERATIVE DIAGNOSES: Gastroesophageal reflux and Albarado esophagus, hiatal hernia. DESCRIPTION OF PROCEDURE: The patient was placed in the left lateral decubitus position. The Olympus video-gastroscope was passed in the posterior oropharynx and upper esophagus under direct vision. The scope was passed slowly into the distal esophagus. The gastroesophageal junction appeared at 36 cm. Extending from this to 34 cm was a circumferential segment of Albarado mucosa with some Islands of squamous mucosa. There is no evidence of any esophagitis nor any lesions. The scope entered the stomach. There was a moderate-sized hiatal hernia. The diaphragmatic indentation was seen at approximately 40 cm. The hiatal hernia mucosa appeared normal. The scope was advanced to pylorus and the duodenum was cannulated in the descending portion. The duodenum including the bulb appeared normal without mass or ulceration. The scope was withdrawn back to the stomach. The gastric antrum and body appeared normal with good peristalsis. Scope was retroflexed, visualizing the proximal stomach carefully, which appeared normal, without any sign of mass or ulceration. Scope was straightened and now withdrawn back to the esophagus. Multiple biopsies were obtained between 34 and 36 cm. I then obtained WATS brushings between 34 and 36 cm. Proximal to 34 cm, the esophageal mucosa appeared normal. The scope was withdrawn from the patient. He tolerated the procedure well and was returned to recovery area in stable condition. IMPRESSION: 1. Albarado esophagus. 2. Hiatal hernia. 3. Gastroesophageal reflux. PLAN: The results of biopsies will be checked. If there is no dysplasia, I would recommend a repeat upper endoscopy in 3 years. He was advised not to use any aspirin or NSAIDs for 1 week. He will continue his daily omeprazole. This has been discussed with his . MD CESAR Sexton/NEREIDA / [phone]
== END 2024-05-23 11:21 | disposition home or self-care (01) ==
PROVIDERS: PCP Internal Medicine; Visit Provider Internal Medicine
PROC: 0DJ08ZZ Inspection of Upper Intestinal Tract, Via Natural or Artificial Opening Endoscopic (ICD-10-PCS; CPT 43235; principal; 2024-05-23 10:50)
DX: K44.9 Diaphragmatic hernia without obstruction or gangrene (principal); K22.70 Barrett's esophagus without dysplasia; K21.9 Gastro-esophageal reflux disease without esophagitis; Z87.891 Personal history of nicotine dependence
CPT/HCPCS: 43239; 88305; 88313; J2704

== ENCOUNTER 2024-05-31 06:22 | Outpatient (REF) | payer BC, SELFPAY ==
[2024-05-31 10:10] LABS: MANUAL DIFF FLAG NO
[2024-05-31 10:24] LABS: Basophils Percent Auto 1.1 % (0-2); Eosinophils Absolute Auto 0.1 X10*3/uL (0.0-0.4); Eosinophils Percent Auto 4.3 % (0-4); Hemoglobin 11.4 g/dl (14.0-18.0); Imm Gran Abs Auto 0.01 X10*3/uL (0.00-0.03); Imm Gran Pct Auto 0.4 % (0.0-0.4); Lymphocytes Absolute Auto 0.8 X10*3/uL (1.2-4.9); Mean Corpuscular HGB Conc 30.8 g/dl (31.0-36.0); Mean Corpuscular Hemoglobin 24.1 pg (27.0-33.0); Mean Corpuscular Volume 78.2 fL (80.0-98.0); Monocytes Absolute Auto 0.3 X10*3/uL (0.1-1.2); Monocytes Percent Auto 9.9 % (2-11); Neutrophils Absolute Auto 1.6 x10*3/uL (2.0-8.3); Neutrophils Percent Auto 57.3 % (45-73); Platelet Count 192 X10*3/uL (160-400); Red Blood Count 4.73 X10*6/uL (4.60-5.80); Red Cell Distribution Width 15.7 % (11.0-16.0); White Blood Count 2.8 X10*3/uL (4.8-10.8)
[2024-05-31 11:05] LABS: Alanine Aminotransferase 16 U/L (0-40); Anion Gap 11 (12-20); Aspartate Amino Transferase 21 U/L (5-37); Blood Urea Nitrogen 17 mg/dL (9-16); Calcium 9.1 mg/dL (8.4-10.2); Carbon Dioxide 27 mmol/L (22-29); Chloride 108 mmol/L (96-108); Cholesterol 211 mg/dL (<200); Estimated Glomerular Filt Rate > 60; Glucose Fasting 92 mg/dL (60-99); HDL Cholesterol 74 mg/dL (>40); Iron 36 mcg/dL (45-160); LDL Cholesterol Calculated 125 mg/dL (<100); Percent Iron Saturation 10 % (15-50); Potassium 4.3 mmol/L (3.3-5.1); Sodium 142 mmol/L (135-145); Total Iron Binding Capacity 346 mcg/dL (228-428); Triglycerides 61 mg/dL (<150); Unsaturated Iron Binding 310 ug/dL
[2024-05-31 11:25] LABS: Vitamin D 25-OH Total 37.6 ng/mL (>30)
[2024-05-31 11:27] LABS: PSA,Total (Free>4and<10) 0.51 ng/mL (0.00-4.00)
== END 2024-05-31 06:23 | disposition home or self-care (01) ==
LOC: HO.HMGCLDS 06:22
PROVIDERS: PCP Internal Medicine; Visit Provider Internal Medicine
DX: Z00.01 Encounter for general adult medical examination with abnormal findings (principal); F33.40 Major depressive disorder, recurrent, in remission, unspecified; D64.9 Anemia, unspecified; D72.819 Decreased white blood cell count, unspecified; K20.90 Esophagitis, unspecified without bleeding; M18.9 Osteoarthritis of first carpometacarpal joint, unspecified; N40.0 Benign prostatic hyperplasia without lower urinary tract symptoms; Z12.5 Encounter for screening for malignant neoplasm of prostate
CPT/HCPCS: 36415; 80048; 80061; 82306; 83540; 84153; 84450; 84460; 85025

== ENCOUNTER 2024-06-22 08:16 | Outpatient (AMB) | payer BC, SELFPAY ==
[2024-06-22 08:33] VITALS: BMI 28.4
--- NOTE | 2024-06-22 08:33 | A.OFFVIS_ITS ---
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 Injection administered on 03/22/24 patient reports that this injection was not helpful, he is having continued symptoms. 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 Allergies No Known Allergies Allergy (Verified 06/22/24 08:42) HPI HPI O/V left hand CMC OA-6-8 week follow up: Details: Collin is a 58 year old right hand dominant man who returns to discuss his left wrist OA. He was last seen and received a radioscaphoid joint injection on 03/22/24. He says this injection was not particularly helpful and he continues to have pain. 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 His work involves lots of heavy pushing and pulling, including with his wrist and hyper extension. He also has a lot of heavy gripping which is also painful. Today he is noting that the pain he has is mostly over the dorsal radial aspect of his wrist and extending across the basal joint of the thumb. He primarily complains of pain with heavy gripping activities. He says his pain has been intermittent for ~20 months now, is worse at the end of a work shift, and is painful at night which is affecting his sleep. He has tried wearing his wrist brace at work but this interferes with his duties & performance. He also says he has numbness is in the back of his hand. Hx of right STT arthrodesis performed by Dr. Ortiz.?He has had more limited wrist range of motion following the surgery, but good relief of his pain in this wrist. [facility] Medical History (Updated 06/01/24 @ 14:28 by Rina Hernandez MD) Iron deficiency anemia Seasonal allergies Benign prostatic hyperplasia Recurrent major depressive disorder, in remission Annual visit for general adult medical examination with abnormal findings Pain and swelling of left wrist COVID-19 vaccination declined Refused influenza vaccine Esophagitis determined by biopsy Hiatal hernia Vitamin D deficiency Anemia GERD (gastroesophageal reflux disease) Impotence Arthritis Acne rosacea Surgical History History of colonoscopy H/O hand surgery Family History Brother Pancreatic cancer Maternal Uncle Leukemia Colon cancer Maternal Uncle Liver cancer Father Heart disease Social History Household Members: Spouse Housing: House Alcohol intake: current Alcohol intake frequency: a few times a week Patient Tobacco Use Status: Former Tobacco user Cigarette Packs Per Day: 1 e-Cigarette/Vaping Use: Never Used Second Hand Smoke Exposure: No service: Yes ([employer]) Current occupational status: employed 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, 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 Cognitive needs: No Hearing needs: No Vision needs: Yes Review of Systems Const All systems reviewed & are unremarkable except as noted in HPI and below Physical Exam Vital Signs: BMI result Body Mass Index 28.4 Const General: no acute distress and alert Orientation/consciousness: patient oriented x3 Neuro General: patient oriented x3 Extrem Other: Evaluation of Left Upper Extremity: The patient is alert, oriented, and in no acute distress Neuro: Median, Ulnar, Radial nerves motor and sensory intact and sensation is normal to the tips of all digits Vascular: Cap refill brisk ROM: He can make a fist with good strength and no pain, and extend all his digits Full and symmetrical pronosupination He has ~75 degrees flexion & ~75 degrees extension of his left wrist His left wrist ROM is better when compared to his right wrist. No tenderness over the STT joint Most tender over the basal joint Mild tenderness over the radiocarpal joint No tenderness oer the ulnocarpal joint Radiographs: 3 views left wrist from 03/06/23 were reviewed by me today in clinic. They show almost complete loss of the STT joint, and basal joint osteoarthritis, with osteophyte formation. He has some narrowing of the mid-carpal joint between the lunate and the capitate. Left wrist MRI: IMPRESSION: 1. There is arthritis in the wrist, detailed above. More prominent changes include severe triscaphe joint arthritis. There is capitate-lunate arthritis, with dorsal tilt of the lunate and dorsal subluxation of the capitate, as described above. ? 2. Moderate wrist joint effusion. Small distal radioulnar joint effusion. ? 3. Flexor carpi radialis tenosynovitis, with the probable component of tendinosis. ? 4. Scapholunate ligament degeneration with probable component of focal fraying/partial tear. Lunotriquetral ligament degeneration. ? 5. Proximal surface fraying/partial tear of the triangular fibrocartilage measuring 5 mm transverse. Dictated By: Aguilar Soto MD 05/25/23 Psych Appearance: grossly normal Affect: normal affect Attitude: cooperative Office Procedures Fracture Care Details: No fracture, injection Fracture Billing Code: Fracture Billing Code Assessment & Plan Assessment & Plan (1) Left wrist pain: Code(s): M25.532 - Pain in left wrist Category: Medical (2) CMC arthritis, thumb, degenerative: Code(s): M18.9 - Osteoarthritis of first carpometacarpal joint, unspecified Category: Medical (3) Arthritis of left wrist: Code(s): M19.032 - Primary osteoarthritis, left wrist Category: Medical Plan Assessment & Plan: 1. Left basal joint arthritis This appears to be be his most symptomatic complaint today. I educated him about these conditions I discussed operative & non-operative treatment options I discussed activity modification, he should limit or avoid any heavy or repetitive pinching, gripping, or lifting activities He will continue to wear his comfort cool brace with heavy activities, and while at work. I recommend a left basal joint injection, and he is in agreement Injection #1: The risks and benefits of a steroid injection including but not limited to risk of damage to blood vessels, nerve, tendon, infection, skin bleaching, persistent or worsening pain, and failure to improve symptoms were discussed with the patient and they wish to proceed with the steroid injection. Once consent was obtained the skin over the dorsum of the Left basal joint was sterilely prepped. The joint was then injected with a combination of 1 mL of (40 mg/ml} Depo-Medrol and 1% plain Lidocaine. The patient appears to have tolerated the procedure well and with no complications. He had good early relief before leaving clinic today, and he said it feels more like we got the area that was bothering him than last time.. He knows that they may not have another steroid injection into this joint for least 4 months. 2. Left STT joint osteoarthritis Near complete loss at the STT joint Minimal tenderness over the STT joint today Evidence of narrowing between the lunate & capitate, and between the capitate & trapezoid It appears he has lost almost all of the STT joint space, and may be working on an auto-arthrodesis of the STT joint 3. Left radiocarpal arthritis, S/P injection Date of injection: 03/22/24 He had early relief of his symptoms before leaving clinic, but patient reports this did not last 4. Left wrist midcarpal osteoarthritis 5. History of right STT arthrodesis, DOS: ~[address] Ortiz at an outside clinic Scribed for Hannah Perez MD by Hardik Mchugh, medical management specialist, on 06/22/24 at 9:35 AM, EST. Coding Level of Care Code Est Pt Level 3 (04999) Diagnoses Left wrist pain M25.532 CMC arthritis, thumb, degenerative M18.9 Arthritis of left wrist M19.032 CPT Codes Fracture Care - Fracture Billing Code: Fracture Billing Code ([id number])
== END 2024-06-22 10:30 | disposition home or self-care (01) ==
PROVIDERS: PCP Internal Medicine; Visit Provider Orthopaedic Surgery
DX: M25.532 Pain in left wrist (principal); M18.9 Osteoarthritis of first carpometacarpal joint, unspecified; M19.032 Primary osteoarthritis, left wrist
CPT/HCPCS: 20600; 99213

== ENCOUNTER → 2024-06-22 08:16 | Outpatient (BNVA) | payer BC, SELFPAY | PROVIDERS: PCP Internal Medicine; Visit Provider Orthopaedic Surgery | DX: M19.032 Primary osteoarthritis, left wrist (principal); M19.042 Primary osteoarthritis, left hand | CPT/HCPCS: 20600; J1010 ==

== ENCOUNTER 2024-07-15 13:28 | Outpatient (AMB) | payer BC, SELFPAY ==
--- NOTE | 2024-07-15 13:33 | AM.OFFWIN_ITS ---
Intake Vital Signs 07/15/24 13:34 Height 5 ft 11 in Weight 215 lb BMI 30.0 BP 114/78 Blood Pressure Location Lt brachial Position Sitting Pulse 68 Pulse Source Pulse Oximeter Temp 97.8 F Temp Source Oral Pulse Oximetry (%) 98 Oxygen Delivery Method Room Air Intake Visit Reasons: EP- Poison herber, both legs and back Intake Note: pt c/o poison herber rash. Started a week ago Patient Tobacco Use Status: Former Tobacco user Allergies No Known Allergies Allergy (Verified 07/15/24 13:37) Do you need a note to return to daycare/school/sports/work: No HPI EP- Poison herber, both legs and back HPI Details 59 year old male patient presents to the [facility] clinic today with report of poison herber rash. States this has been present for about 1 week, following going into the wood in his backyard with shorts on. Rash is primarily on legs, however is starting to spread to his groin and lower back area. Has been using Calamine lotion and Benadryl at for the itching. [facility] Medical History Iron deficiency anemia Seasonal allergies Benign prostatic hyperplasia Recurrent major depressive disorder, in remission Annual visit for general adult medical examination with abnormal findings Pain and swelling of left wrist COVID-19 vaccination declined Refused influenza vaccine Esophagitis determined by biopsy Hiatal hernia Vitamin D deficiency Anemia GERD (gastroesophageal reflux disease) Impotence Arthritis Acne rosacea Surgical History History of colonoscopy H/O hand surgery Family History Brother Pancreatic cancer Maternal Uncle Leukemia Colon cancer Maternal Uncle Liver cancer Father Heart disease Social History Household Members: Spouse Housing: House Alcohol intake: current Alcohol intake frequency: a few times a week Patient Tobacco Use Status: Former Tobacco user Cigarette Packs Per Day: 1 e-Cigarette/Vaping Use: Never Used Second Hand 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 Exposure: 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, 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 Cognitive needs: No Hearing needs: No Vision needs: Yes Review of Systems Const All systems reviewed & are unremarkable except as noted in HPI and below Physical Exam Vital Signs: Last Vital Signs Temp 97.8 F 07/15/24 13:34 Pulse 68 07/15/24 13:34 BP 114/78 07/15/24 13:34 Pulse Ox 98 07/15/24 13:34 Oxygen Delivery Method Room Air 07/15/24 13:34 BMI result Body Mass Index 30.0 Const General: cooperative, healthy appearing and no acute distress HEENT Head: Yes normal to inspection Resp Effort & Inspection: normal respiratory effort Skin Other: pruritic, erythematous rash consistent with contact dermatitis - primarily over lower legs, some areas on upper legs, groin, and lower back. No blisters or open areas. Extrem General: Yes capillary refill normal and Yes no clubbing, cyanosis or edema Psych Appearance: grossly normal Mental Status: mental status grossly normal Speech and movement: Normal speech and movement present Assessment & Plan Assessment & Plan (1) Contact dermatitis due to poison herber: Code(s): L23.7 - Allergic contact dermatitis due to plants, except food Plan: Prednisone taper started. Reviewed indications, use, possible s/e of medication. He has benadryl at home which he can utilize at HS for ongoing itching. Advised cool compresses/oatmeal baths for comfort, and he can continue to use Calamine lotion. If he does not improve with treatment or if he develops new symptoms he can return to the clinic for further evaluation. Patient verbalizes understanding and agrees to plan. Medications: New prednisone Take 4 tabs for two days, then take 3 tabs for two days, then take 2 tabs for two days, then take 1 tab for 2 days. 10 mg PO DAILY 20 tabs 0RF L23.7 - Allergic contact dermatitis due to plants, except food Coding Level of Care Code Est Pt Level 4 (82014) Diagnoses Contact dermatitis due to poison herber L23.7
[2024-07-15 13:34] VITALS: BP 114/78; PULSE 68; TEMP 36.6; O2SAT 98
== END 2024-07-15 14:01 | disposition home or self-care (01) ==
PROVIDERS: PCP Internal Medicine; Visit Provider Nurse Practitioner Family
DX: L23.7 Allergic contact dermatitis due to plants, except food (principal)
CPT/HCPCS: 99214

== ENCOUNTER 2024-08-10 08:15 | Outpatient (RCR) | payer BC, SELFPAY ==
[2024-07-18 13:25] VITALS: BP 113/53; PULSE 64; RESP 18; TEMP 36.3; O2SAT 98; BMI 27.9
[2024-07-18] MEDS: Iron Sucrose Complex 200 MG in 0.9 % Sodium Chloride 100 ML 440 MG IV (13:35)
[2024-07-18] MEDS: 0.9 % Sodium Chloride Flush 10 ML SYRINGE 5 ML IVFLUSH (13:53)
[2024-07-26 08:35] VITALS: BP 125/64; PULSE 55; RESP 18; TEMP 36.6; O2SAT 100
[2024-07-26] MEDS: Iron Sucrose Complex 200 MG in 0.9 % Sodium Chloride 100 ML 440 MG IV (08:42)
[2024-07-26] MEDS: 0.9 % Sodium Chloride Flush 10 ML SYRINGE 5 ML IVFLUSH (09:02)
[2024-08-03 08:59] VITALS: BP 141/50; PULSE 54; RESP 14; TEMP 36.7; O2SAT 99
[2024-08-03] MEDS: Iron Sucrose Complex 200 MG in 0.9 % Sodium Chloride 100 ML 440 MG IV (09:05)
[2024-08-03] MEDS: 0.9 % Sodium Chloride Flush 10 ML SYRINGE 5 ML IVFLUSH (09:21)
[2024-08-10 08:09] VITALS: BP 121/49; PULSE 50; RESP 16; TEMP 36.6; O2SAT 99
[2024-08-10] MEDS: Iron Sucrose Complex 200 MG in 0.9 % Sodium Chloride 100 ML 440 MG IV (08:16)
== END 2024-08-10 08:35 | disposition home or self-care (01) ==
LOC: HO.INF 08:15
PROVIDERS: Visit Provider Internal Medicine
DX: D50.9 Iron deficiency anemia, unspecified (principal)
CPT/HCPCS: 96365; 96374; J1756

== ENCOUNTER 2024-11-02 06:00 | Outpatient (REF) | payer BC, SELFPAY ==
--- NOTE | ~2024-11-02 | XR_ITS ---
EXAMINATION: XR KNEE LEFT CLINICAL INFORMATION: Pain in left knee M25.562. COMPARISON: XR Both knees 08/23/2015 TECHNIQUE: 1 AP view bilateral knees. FINDINGS: . Alignment is anatomic. Joint spaces are maintained. No acute findings in the single radiograph. Redemonstrated is small metallic density projected over the proximal right tibia. Redemonstrated sclerotic focus in the femoral diaphysis, similar to previous. No abnormal soft tissue calcification. XR/XR knee LT 1V IMPRESSION: No acute osseous abnormality. Redemonstrated is small metallic focus projected over the proximal right tibia. Study is assigned/presented to me for interpretation on Dec 09, 2024 Electronically signed by: Aguilar Soto MD 12/09/2024 05:33 PM VANDANA
--- NOTE | ~2024-11-02 | XR_ITS ---
EXAMINATION: XR KNEE RIGHT CLINICAL INFORMATION: Unilateral primary osteoarthritis, right knee M17.11. COMPARISON: None available TECHNIQUE: Two views of the right knee. FINDINGS: No fracture or joint effusion. Alignment is anatomic. Joint spaces are maintained. There is a punctate metallic foreign body in the subcutaneous soft tissues anteriorly just below the knee joint. XR/XR knee RT 3V IMPRESSION: No acute process. Punctate metallic foreign body in the subcutaneous soft tissues. Electronically signed by: Gato Dockery MD 11/15/2024 11:38 AM EST
== END 2024-11-02 06:01 | disposition home or self-care (01) ==
LOC: HO.HOSX 06:00
PROVIDERS: Visit Provider Physician Assistant
DX: M17.11 Unilateral primary osteoarthritis, right knee (principal); M25.562 Pain in left knee
CPT/HCPCS: 20610; 73560; 73562; J1010; J2003

== ENCOUNTER 2024-11-02 09:13 | Outpatient (AMB) | payer BC, SELFPAY ==
--- NOTE | 2024-11-02 09:32 | MHC.OFFVIS ---
Vital Signs 11/02/24 09:34 Height 5 ft 11 in Weight 200 lb BMI 27.9 Intake Visit Reasons: New prob- Right knee pain Intake Note: Collin a 59 year old male who presents today for an evaluation of right knee pain. Patient reports intermittent pain for a while however for the past year his pain has been increasing, states his pain fluctuates daily. He has increase of pain with jogging or running. His pain is located at the anterior and lateral aspect of knee. He has numbness and tingling while laying down. 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 Denies injury. No previous tx. Finds relief with rest and ibuprofen. Allergies No Known Allergies Allergy (Verified 11/02/24 09:34) Medication List - Last Reconciled 11/02/24 by Gabe Landers PA-C citalopram 40 mg (2 x 20 mg) PO DAILY 90 days dicyclomine 10 mg PO TID ibuprofen 200 mg PO Q6H PRN omeprazole 20 mg PO DAILY tamsulosin 0.4 mg PO DAILY HPI HPI New prob- Right knee pain: Details: 59-year-old male who presents to the office today for an evaluation of right knee pain. 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 He states he has worsening intermittent pain at the anterior aspect and lateral aspect of his right knee that fluctuates in intensity daily. His pain is aggravated with prolonged walking and weight bearing. He also experiences numbness and tingling with laying down as well as a sharp pain with moving his knee to change direction where his knee pops out. He has not had any treatment in the past. He finds relief with rest and ibuprofen. He does not have a history of diabetes. [facility] Medical History Iron deficiency anemia Seasonal allergies Benign prostatic hyperplasia Recurrent major depressive disorder, in remission Annual visit for general adult medical examination with abnormal findings Pain and swelling of left wrist COVID-19 vaccination declined Refused influenza vaccine Esophagitis determined by biopsy Hiatal hernia Vitamin D deficiency Anemia GERD (gastroesophageal reflux disease) Impotence Arthritis Acne rosacea Surgical History History of colonoscopy H/O hand surgery Family History Brother Pancreatic cancer Maternal Uncle Leukemia Colon cancer Maternal Uncle Liver cancer Father Heart disease Social History Household Members: Spouse Housing: House Alcohol intake: current Alcohol intake frequency: a few times a week Patient Tobacco Use Status: Former Tobacco user Cigarette Packs Per Day: 1 e-Cigarette/Vaping Use: Never Used Second Hand Smoke Exposure: No service: Yes ([employer]) Current occupational status: employed 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 Tenderness along the lateral joint line. Full ROM with crepitus. Positive Navya?s. No ligamentous laxity. NVI. Office Procedures AMB Joint Injection/Aspiration Joint Injection/Aspiration Primary Site: right knee Prep: site was prepped using aseptic technique, ethochloride spray was applied and injection warnings given Injected: 80 mg of, DepoMedrol, with 8 mL of, 1% plain lidocaine and in the joint Approach Used: anteromedial Procedure: The patient tolerated the procedure well and there was some relief with the local anesthesia Coding 68098 - Glenohumeral/Tronchanteric Bursa/Intraarticular Procedure code (CPT) selection complete Results Reviewed Results Reviewed: Xrays were obtained in the office today and personally reviewed by me of the right knee show mild lateral compartment narrowing with lateralization of the patella/ PF OA Assessment & Plan Assessment & Plan (1) Osteoarthritis of right knee: Code(s): M17.11 - Unilateral primary osteoarthritis, right knee Category: Medical Plan We discussed options today, which include steroid injection. The patient did consent to move forward with the right knee injection, which was tolerated well. I recommended rest, ice, and elevation and OTC anti-inflammatories as needed for discomfort. If symptoms persist or worsens over the next 6-8 weeks, patient will contact the office and we will order an MRI of the right knee, otherwise follow-up as needed. Orders: Orders XR knee RT 3V Today M17.11 - Unilateral primary osteoarthritis, right knee XR knee LT 1V Today M25.562 - Pain in left knee Patient Instructions: Scribed for Gabe Landers PA-C, by Chaz Jeffries medical appointment clerk, on 11/02/2024 at 9:45 AM EST.? I, Gabe Landers PA-C, have personally reviewed and agree with the information entered by the scribe. Coding Level of Care Code Est Pt Level 3 (18456) Complex EM visit Add On G2211 Diagnoses Osteoarthritis of right knee M17.11 CPT Codes Coding - Joint 7: 69092 - Glenohumeral/Tronchanteric Bursa/Intraarticular ([id number])
[2024-11-02 09:34] VITALS: BMI 27.9
== END 2024-11-02 10:03 | disposition home or self-care (01) ==
PROVIDERS: PCP Internal Medicine; Visit Provider Physician Assistant
DX: M17.11 Unilateral primary osteoarthritis, right knee (principal)
CPT/HCPCS: 20610; 99213

== ENCOUNTER 2024-12-01 09:39 | Outpatient (AMB) | payer OTHER, SELFPAY ==
--- NOTE | 2024-12-01 09:48 | A.OFFVIS_ITS ---
Vital Signs 12/01/24 09:49 Height 5 ft 11 in Weight 200 lb BMI 27.9 Intake Visit Reasons: New prob-RT shoulder pain Intake Note: Collin is a 59 year old right hand dominant male who presents today for an evaluation of right shoulder pain. Patient reports his pain has been present for quite a while. He had an injection many years ago and he believes it helped at that time. His pain is mostly located in his shoulder. He has pain with certain ROM and lifting objects. Denies numbness or tingling. NO injury. No recent tx. Finds no relief with ibuprofen. Allergies No Known Allergies Allergy (Verified 12/01/24 09:52) Medication List - Last Reconciled 12/01/24 by Gabe Landers PA-C citalopram 40 mg (2 x 20 mg) PO DAILY 90 days dicyclomine 10 mg PO TID ibuprofen 200 mg PO Q6H PRN omeprazole 20 mg PO DAILY tamsulosin 0.4 mg PO DAILY HPI HPI New prob-RT shoulder pain: Details: 59 yo male presents to the office today for right shoulder pain , denies injury. Pain has been on and off for many years. 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 He has some weakness. He has had cortisone injections in the past with relief. He states his shoulder pain is limiting his ability to perform daily tasks. COUNTS INCLUDE 234 BEDS AT THE [facility] Medical History Iron deficiency anemia Seasonal allergies Benign prostatic hyperplasia Recurrent major depressive disorder, in remission Annual visit for general adult medical examination with abnormal findings Pain and swelling of left wrist COVID-19 vaccination declined Refused influenza vaccine Esophagitis determined by biopsy Hiatal hernia Vitamin D deficiency Anemia GERD (gastroesophageal reflux disease) Impotence Arthritis Acne rosacea Surgical History History of colonoscopy H/O hand surgery Family History Brother Pancreatic cancer Maternal Uncle Leukemia Colon cancer Maternal Uncle Liver cancer Father Heart disease Social History Household Members: Spouse Housing: House Alcohol intake: current Alcohol intake frequency: a few times a week Patient Tobacco Use Status: Former Tobacco user Cigarette Packs Per Day: 1 e-Cigarette/Vaping Use: Never Used Second Hand Smoke Exposure: No service: Yes ([employer]) Current occupational status: employed 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 He does have full range of motion in all planes. Tenderness over the proximal biceps tendon. Positive Hill. He is able to activate rotator cuff strengthening however he does have accessory muscle use when doing so. Neurovascularly intact. Results Reviewed Results Reviewed: X-rays of the right shoulder obtained in the office today and reviewed by me show glenohumeral joint arthritis. Assessment & Plan Assessment & Plan (1) Tendinitis of right rotator cuff: Code(s): M75.81 - Other shoulder lesions, right shoulder Category: Medical (2) Arthritis of right glenohumeral joint: Code(s): M19.011 - Primary osteoarthritis, right shoulder Category: Medical Plan We discussed options today which include physical therapy to help with his pain. Since he has had 1 in the past he would like to hold off at this time. An MRI of the right shoulder has been ordered to further evaluate the integrity of the rotator cuff and the extent of his arthritis. Once the scan is complete, I will contact him to discuss the next step in his treatment plan. Orders: Orders MR shoulder RT wo con Today M77.8 - Other enthesopathies, not elsewhere classified XR shoulder RT min 2V Today M25.511 - Pain in right shoulder Coding Level of Care Code New Pt Level 3 (31479) Complex EM visit Add On G2211 Diagnoses Tendinitis of right rotator cuff M75.81 Arthritis of right glenohumeral joint M19.011
[2024-12-01 09:49] VITALS: BMI 27.9
== END 2024-12-01 10:12 | disposition home or self-care (01) ==
PROVIDERS: PCP Internal Medicine; Visit Provider Physician Assistant
DX: M75.81 Other shoulder lesions, right shoulder (principal); M19.011 Primary osteoarthritis, right shoulder
CPT/HCPCS: 99213

== ENCOUNTER → 2024-12-01 09:42 | Outpatient (BNV) | payer OTHER, SELFPAY | PROVIDERS: Visit Provider Radiology Diagnostic Radiology | DX: M25.511 Pain in right shoulder (principal) | CPT/HCPCS: 73030 ==

== ENCOUNTER 2024-12-01 11:03 | Outpatient (REF) | payer OTHER, SELFPAY ==
--- NOTE | ~2024-12-01 | XR_ITS ---
EXAMINATION: XR SHOULDER 2 OR MORE VIEWS RIGHT HISTORY: M25.511 - Pain in right shoulder COMPARISON: Comparison is made with the prior examination dated 11/25/2016. FINDINGS: Three views of the right shoulder are submitted. Osseous mineralization is normal. There is no fracture or dislocation. There is moderate to severe osteoarthritis of the glenohumeral joint with joint space narrowing and osteophyte formation. The AC joint is maintained. The soft tissues are unremarkable. XR/XR shoulder RT min 2V IMPRESSION: Moderate to severe osteoarthritis of the glenohumeral joint. Electronically signed by: Darren Morales MD 12/05/2024 12:46 PM EST
== END 2024-12-01 11:04 | disposition home or self-care (01) ==
LOC: HO.HOSX 11:03
PROVIDERS: Visit Provider Physician Assistant
DX: M25.511 Pain in right shoulder (principal); M19.011 Primary osteoarthritis, right shoulder
CPT/HCPCS: 73030; 99212

== ENCOUNTER → 2024-12-26 07:13 | Outpatient (BNV) | payer OTHER, SELFPAY | PROVIDERS: PCP Internal Medicine; Visit Provider Radiology Diagnostic Radiology | DX: M19.011 Primary osteoarthritis, right shoulder (principal) | CPT/HCPCS: 73221 ==

== ENCOUNTER 2024-12-26 07:16 | Outpatient (REF) | payer OTHER, SELFPAY ==
--- NOTE | ~2024-12-26 | MR_ITS ---
CLINICAL HISTORY: M77.8 - Other enthesopathies, not elsewhere classified MR right shoulder without gadolinium Comparison: None Findings: Normal alignment without acute fracture. Mild AC joint osteoarthritis. Severe glenohumeral osteoarthritis seen as partial cartilage denudation on a background of severe thinning of the cartilage, subchondral cysts, mild subchondral bone marrow edema, and osteophytosis. Trace to small glenohumeral joint effusion with mild synovitis most conspicuous in the axillary recess. Correlate clinically for possible adhesive capsulitis. Subtle subacromial/subdeltoid bursitis. Partial-thickness, partial width, articular sided tear of the supraspinatus-infraspinatus conjoint footprint and neighboring superior infraspinatus footprint measuring up to 8 mm in AP and 1.6 mm in ccdimensions. Background of wctp-jz-dvszgyui superior infraspinatus tendinosis. Sxot-bt-zqihiasq subscapularis tendinosis with a questionable articular sided , low-grade partial-thickness, partial width, footprint tear. Mild supraspinatus tendinosis. Focal severe atrophy of the infraspinatus muscle in the vicinity of the musculotendinous junction. No definite evidence of labral tear. Mild long head of biceps tenosynovitis. IMPRESSION: Severe glenohumeral osteoarthritis. Low-grade partial-thickness, partial width, articular sided infraspinatus tear. Qrjq-qo-ytkuqqsy rotator cuff tendinosis. Correlate clinically for possible adhesive capsulitis. This document has been electronically signed by: Amanda Gale MD on 12/27/2024 13:29:40
== END 2024-12-26 07:17 | disposition home or self-care (01) ==
LOC: HO.MRI 07:16
PROVIDERS: PCP Internal Medicine; Visit Provider Physician Assistant
DX: M77.8 Other enthesopathies, not elsewhere classified (principal)
CPT/HCPCS: 73221

== ENCOUNTER 2024-12-28 13:09 | Outpatient (AMB) | payer OTHER, SELFPAY ==
--- NOTE | 2024-12-28 13:20 | MHC.OFFVIS ---
Vital Signs 12/28/24 13:23 Height 5 ft 11 in Weight 200 lb BMI 27.9 Intake Visit Reasons: OV-Left CMC OA s/p inj 06/22/24 Intake Note: Collin is a 58 year old right hand dominant male who presents today for follow up on left wrist OA & basal joint OA. Injection administered on 06/22/24 states that this injection did not provide relief. STates he would like to discuss other treatment options. Allergies No Known Allergies Allergy (Verified 12/28/24 13:23) HPI HPI OV-Left CMC OA s/p inj 06/22/24: Details: Collin is a 59 year old right hand dominant man who returns to discuss his left wrist & basal joint OA. He received a radioscaphoid joint injection on 03/22/24, and a basal joint injection on 06/22/24. He says he thinks the 2nd injection better identified the problem, however it did not work for very long. He also notes that he continued to do heavy work with that hand and did not really protected at all after the injection. He notes that his pain is mostly at the base of his left thumb . He primarily complains of pain with heavy gripping activities. He says his pain? is worse at the end of a work shift, and is painful at night which is affecting his sleep.? 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 His work involves lots of heavy pushing and pulling, including with his wrist and hyper extension. He also has a lot of heavy gripping which is also painful. He has tried wearing his wrist brace at work but this interferes with his duties & performance. His right wrist and hand are not bothering him very much Hx of right STT arthrodesis performed by Dr. Ortiz.?He has had more limited wrist range of motion following the surgery, but good relief of his pain in this wrist. [facility], [facility] Medical History Iron deficiency anemia Seasonal allergies Benign prostatic hyperplasia Recurrent major depressive disorder, in remission Annual visit for general adult medical examination with abnormal findings Pain and swelling of left wrist COVID-19 vaccination declined Refused influenza vaccine Esophagitis determined by biopsy Hiatal hernia Vitamin D deficiency Anemia GERD (gastroesophageal reflux disease) Impotence Arthritis Acne rosacea Surgical History History of colonoscopy H/O hand surgery Family History Brother Pancreatic cancer Maternal Uncle Leukemia Colon cancer Maternal Uncle Liver cancer Father Heart disease Social History Household Members: Spouse Housing: House Alcohol intake: current Alcohol intake frequency: a few times a week Patient Tobacco Use Status: Former Tobacco user Cigarette Packs Per Day: 1 e-Cigarette/Vaping Use: Never Used Second Hand Smoke Exposure: No service: Yes ([employer]) Current occupational status: employed 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, 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 Cognitive needs: No Hearing needs: No Vision needs: Yes Physical Exam Vital Signs: BMI result Body Mass Index 27.9 Const General: no acute distress and alert Orientation/consciousness: patient oriented x3 Neuro General: patient oriented x3 Extrem Other: Evaluation of Left Upper Extremity: The patient is alert, oriented, and in no acute distress Neuro: Median, Ulnar, Radial nerves motor and sensory intact and sensation is normal to the tips of all digits Vascular: Cap refill brisk ROM: He can make a fist with good strength and no pain, and extend all his digits Full and symmetrical pronosupination He has ~75 degrees flexion & ~75 degrees extension of his left wrist His left wrist ROM is better when compared to his right wrist. Tenderness over the STT joint Most tender over the basal joint + shoulder sign + CMC grind No tenderness over the radiocarpal joint No tenderness oer the ulnocarpal joint No tenderness over the MCP joont no tenderness over the 1st dorsal compartment Radiographs: 3 views left wrist from 04/21/23 were reviewed by me today in clinic. They show almost complete loss of the STT joint, and basal joint osteoarthritis, with osteophyte formation. He has some narrowing of the mid-carpal joint between the lunate and the capitate. Left wrist MRI: IMPRESSION: 1. There is arthritis in the wrist, detailed above. More prominent changes include severe triscaphe joint arthritis. There is capitate-lunate arthritis, with dorsal tilt of the lunate and dorsal subluxation of the capitate, as described above. ? 2. Moderate wrist joint effusion. Small distal radioulnar joint effusion. ? 3. Flexor carpi radialis tenosynovitis, with the probable component of tendinosis. ? 4. Scapholunate ligament degeneration with probable component of focal fraying/partial tear. Lunotriquetral ligament degeneration. ? 5. Proximal surface fraying/partial tear of the triangular fibrocartilage measuring 5 mm transverse. Dictated By: Aguilar Soto MD 05/25/23 Psych Appearance: grossly normal Affect: normal affect Attitude: cooperative Office Procedures AMB Fracture Care Details: No fracture, injection Fracture Billing Code: Fracture Billing Code Assessment & Plan Assessment & Plan (1) Left wrist pain: Code(s): M25.532 - Pain in left wrist Category: Medical (2) CMC arthritis, thumb, degenerative: Code(s): M18.9 - Osteoarthritis of first carpometacarpal joint, unspecified Category: Medical (3) Arthritis of left wrist: Code(s): M19.032 - Primary osteoarthritis, left wrist Category: Medical Plan Assessment & Plan: 1. Left basal joint arthritis, S/P injection Date of injection: 12/28/24, 06/22/24 This is his most symptomatic complaint I educated him about these conditions I discussed operative & non-operative treatment options I discussed activity modification, he should limit or avoid any heavy or repetitive pinching, gripping, or lifting activities He will continue to wear his comfort cool brace with heavy activities, and while at work. Injection #1: The risks and benefits of a steroid injection including but not limited to risk of damage to blood vessels, nerve, tendon, infection, skin bleaching, persistent or worsening pain, and failure to improve symptoms were discussed with the patient and they wish to proceed with the steroid injection. Once consent was obtained the skin over the dorsum of the Left basal joint was sterilely prepped. The joint was then injected with a combination of 1 mL of (40 mg/ml} Depo-Medrol and 1% plain Lidocaine. The patient appears to have tolerated the procedure well and with no complications. He had good early relief before leaving clinic today. He knows that they may not have another steroid injection into this joint for least 4 months. 2. Left STT joint osteoarthritis Near complete loss at the STT joint Evidence of narrowing between the lunate & capitate, and between the capitate & trapezoid It appears he has lost almost all of the STT joint space, and may be working on an auto-arthrodesis of the STT joint If he continues to have tenderness here in the next 4 weeks, he will make an appointment to follow up for a possible STT joint injection using the mini C-arm. 3. Left radiocarpal arthritis, S/P injection Date of injection: 03/22/24 No complaints today 4. Left wrist midcarpal osteoarthritis No complaints today 5. History of right STT arthrodesis, DOS: ~[address] Ortiz at an outside clinic No complaints today Scribed for Hannah Perez MD by Hardik Mchugh, electromedical equipment repairer, on 12/28/24 at 1:40 PM, EST. Coding Level of Care Code Est Pt Level 4 (60694) Diagnoses Left wrist pain M25.532 CMC arthritis, thumb, degenerative M18.9 Arthritis of left wrist M19.032 CPT Codes Fracture Care - Fracture Billing Code: Fracture Billing Code ([id number])
[2024-12-28 13:23] VITALS: BMI 27.9
== END 2024-12-28 14:30 | disposition home or self-care (01) ==
PROVIDERS: PCP Internal Medicine; Visit Provider Orthopaedic Surgery
DX: M18.12 Unilateral primary osteoarthritis of first carpometacarpal joint, left hand (principal); M19.032 Primary osteoarthritis, left wrist
CPT/HCPCS: 20600; 99214

== ENCOUNTER → 2024-12-28 13:09 | Outpatient (BNVA) | payer OTHER, SELFPAY | PROVIDERS: PCP Internal Medicine; Visit Provider Orthopaedic Surgery | DX: M25.532 Pain in left wrist (principal); M18.9 Osteoarthritis of first carpometacarpal joint, unspecified; M19.032 Primary osteoarthritis, left wrist | CPT/HCPCS: 20600; 99212; J1010; J2003 ==

== ENCOUNTER 2025-02-09 13:45 | Outpatient (AMB) | payer OTHER, SELFPAY ==
--- NOTE | 2025-02-09 13:47 | MHC.OFFVIS ---
Intake Visit Reasons: OV-MRI Shoulder RT Review Intake Note: Collin is a 59 year old male who presents today for an MRI review of right shoulder. Allergies No Known Allergies Allergy (Verified 02/09/25 13:50) HPI HPI OV-MRI Shoulder RT Review: Details: 59-year-old gentleman returns to the office today for a follow-up right shoulder MRI review. States he has been doing okay but has difficulty raising the arm overhead and reaching. [facility] Medical History (Updated 01/04/25 @ 16:58 by Rina Hernandez MD) Pain in foot Iron deficiency anemia Seasonal allergies Benign prostatic hyperplasia Recurrent major depressive disorder, in remission Annual visit for general adult medical examination with abnormal findings Pain and swelling of left wrist COVID-19 vaccination declined Refused influenza vaccine Esophagitis determined by biopsy Hiatal hernia Vitamin D deficiency Anemia GERD (gastroesophageal reflux disease) Impotence Arthritis Acne rosacea Surgical History History of colonoscopy H/O hand surgery Family History Brother Pancreatic cancer Maternal Uncle Leukemia Colon cancer Maternal Uncle Liver cancer Father Heart disease Social History Household Members: Spouse Housing: House Alcohol intake: current Alcohol intake frequency: a few times a week Patient Tobacco Use Status: Former Tobacco user Cigarette Packs Per Day: 1 e-Cigarette/Vaping Use: Never Used Second Hand Smoke Exposure: No 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 He does have full range of motion in all planes. Tenderness over the proximal biceps tendon. Positive Hill. He is able to activate rotator cuff strengthening however he does have accessory muscle use when doing so. Neurovascularly intact. Results Reviewed Results Reviewed: IMPRESSION: Severe glenohumeral osteoarthritis. Low-grade partial-thickness, partial width, articular sided infraspinatus tear. Zorr-ye-kctwzmzr rotator cuff tendinosis. Correlate clinically for possible adhesive capsulitis. Assessment & Plan Assessment & Plan (1) Tendinitis of right rotator cuff: Code(s): M75.81 - Other shoulder lesions, right shoulder Category: Medical (2) Arthritis of right glenohumeral joint: Code(s): M19.011 - Primary osteoarthritis, right shoulder Category: Medical Plan We discussed the extent of his MRI along with options. Given that he has good range of motion and mild weakness and pain with rotator cuff strength I feel that he does have a functional cuff that would benefit from physical therapy. He is interested in this option. An order for therapy was placed today for range of motion, rotator cuff and periscapular stabilization. If he continues to have pain and or develops worsening weakness he can contact our office to discuss otherwise follow up as needed. Orders: Orders PT Evaluation and Treatment Today M19.011 - Primary osteoarthritis, right shoulder, M75.81 - Other shoulder lesions, right shoulder Coding Level of Care Code Est Pt Level 3 (99115) Complex EM visit Add On G2211 Diagnoses Tendinitis of right rotator cuff M75.81 Arthritis of right glenohumeral joint M19.011
== END 2025-02-09 14:29 | disposition home or self-care (01) ==
LOC: HO.HOS 13:45
PROVIDERS: PCP Internal Medicine; Visit Provider Physician Assistant
DX: M75.81 Other shoulder lesions, right shoulder (principal); M19.011 Primary osteoarthritis, right shoulder
CPT/HCPCS: 99213

== ENCOUNTER → 2025-02-09 13:45 | Outpatient (BNVA) | payer OTHER, SELFPAY | PROVIDERS: PCP Internal Medicine; Visit Provider Physician Assistant | DX: M75.81 Other shoulder lesions, right shoulder (principal); M19.011 Primary osteoarthritis, right shoulder | CPT/HCPCS: 99212 ==

== ENCOUNTER 2025-03-01 07:30 | Outpatient (RCR) | payer OTHER, SELFPAY ==
[2025-01-23 07:22] VITALS: BP 111/70; PULSE 54; RESP 14; O2SAT 99
[2025-01-23] MEDS: Iron Sucrose Complex 200 MG/10 ML VIAL IVPUSH (07:25)
[2025-01-31 08:09] VITALS: BP 132/78; PULSE 888; RESP 14; TEMP 36.6; O2SAT 99
[2025-01-31] MEDS: Iron Sucrose Complex 200 MG/10 ML VIAL IVPUSH (08:21)
[2025-01-31] MEDS: 0.9 % Sodium Chloride Flush 10 ML SYRINGE 5 ML IVFLUSH (08:28)
[2025-02-07 07:20] VITALS: BP 129/61; PULSE 62; RESP 16; TEMP 36.6; O2SAT 100
[2025-02-07] MEDS: Iron Sucrose Complex 200 MG/10 ML VIAL IVPUSH (07:22)
[2025-02-14] MEDS: Iron Sucrose Complex 200 MG/10 ML VIAL IVPUSH (07:31)
[2025-02-14] MEDS: 0.9 % Sodium Chloride Flush 10 ML SYRINGE 5 ML IVFLUSH (07:38)
[2025-02-23 07:25] VITALS: BP 115/56; PULSE 51; RESP 16; TEMP 36.6; O2SAT 98
[2025-02-23] MEDS: Iron Sucrose Complex 200 MG/10 ML VIAL IVPUSH (07:25)
[2025-03-01 07:22] VITALS: BP 117/63; PULSE 63; RESP 16; TEMP 36.2; O2SAT 99
[2025-03-01] MEDS: Iron Sucrose Complex 200 MG/10 ML VIAL IVPUSH (07:28)
== END 2025-03-01 07:41 | disposition home or self-care (01) ==
LOC: HO.INF 07:30
PROVIDERS: Visit Provider Internal Medicine
DX: D50.9 Iron deficiency anemia, unspecified (principal)
CPT/HCPCS: 96374; J1756

== ENCOUNTER 2025-04-13 15:00 | Outpatient (RCR) | payer OTHER, SELFPAY ==
--- NOTE | 2025-03-21 15:56 | MHC.PT.EP ---
[facility] [place] Office [place] Office [place] Office [address] Reg Roe [address] [phone] F: [phone] F: [phone] F: [phone] F: [phone] Physical Therapy Plan of Care Date of Evaluation: 03/21/25 Date of Surgery: N/A Diagnosis: right shoulder tendinitis (RL) Assessment: pt is a 59 y/o male presenting to physical therapy w/ referring diagnosis of tendinitis of right shoulder. Impairments include pain, decreased range of motion, decreased strength, impaired functional mobility, impaired postural awareness, and altered ambulation mechanics. pt is a good candidate for skilled PT due to age, potential remediation of impairments, typical disease/condition progression and prognosis, comorbidities, and motivation. pt would benefit from skilled PT intervention to provide a tailored strengthening and stretching exercise program, functional training, gait training, postural re-training, neuromuscular re-education, modalities as needed for pain, equipment safety demonstration. Frequency and Duration: The patient will be seen 2x/wk for 4 wks Short Term Goals: pt will be I w/ HEP to promote self-management of condition. pt will improve R shoulder flexion and abduction AROM by at least 10* to promote ease in overhead reaching for work. Account Development Specialist Goals: pt will report a statistically significant improvement in self-reported outcome measure, SPADI, to promote return to PLOF. pt will improve R functional IR to at least L3 to promote ease in upper body dressing. pt will improve R flexion strength grade of at least 4+/5 to promote ease in lifting for work. Treatment Plan: Modalities to reduce pain, spasms and effusion. Manual therapy to restore motion and function. Therapeutic exercise to improve strength and flexibility. Neuromuscular re-education for posture and balance. Therapeutic activities to return to functional activities of daily living. Electronically signed by: Aurora Fraga PT, DPT Please sign and return to therapist. Thank you for your referral.
--- NOTE | 2025-05-09 10:34 | MHC.PT.DC ---
[facility] [place] Office [place] Office [place] Office [address] Reg Roe [address] [facility] [phone] F: [phone] F: [phone] F: [phone] F: [phone] Physical Therapy Discharge Report Diagnosis: right shoulder tendinitis (RL) Date of Surgery: N/A Date of Evaluation: 03/21/25 Date of Discharge: 05/09/25 Treatments to Date: 8 Cancellations to Date: 1 No Shows to Date: 0 Discharge Status: Improved Function Independent with HEP Discharge Summary: The patient was reporting improvement of shoulder pain with mobility and strengthening of his arm. He is independent with his home exercise program. He is discharged from this physical therapy plan of care. Electronically signed by: Aurora Fraga PT, DPT Please sign and return to therapist. Thank you for your referral.
== END 2025-05-09 10:35 | disposition home or self-care (01) ==
LOC: HO.PT 15:00
PROVIDERS: PCP Internal Medicine; Visit Provider Physician Assistant
DX: M75.81 Other shoulder lesions, right shoulder (principal); M19.011 Primary osteoarthritis, right shoulder
CPT/HCPCS: 97035; 97110; 97140; 97162; 97530

== ENCOUNTER 2025-04-18 07:07 | Outpatient (REF) | payer OTHER, SELFPAY ==
[2025-04-18 07:27] LABS: MANUAL DIFF FLAG NO
[2025-04-18 08:11] LABS: Basophils Percent Auto 0.7 % (0-2); Eosinophils Absolute Auto 0.1 X10*3/uL (0.0-0.4); Eosinophils Percent Auto 3.7 % (0-4); Hematocrit 40.4 % (42.0-52.0); Hemoglobin 13.6 g/dl (14.0-18.0); Lymphocytes Absolute Auto 0.8 X10*3/uL (1.2-4.9); Lymphocytes Percent Auto 26.2 % (20-40); Mean Corpuscular HGB Conc 33.7 g/dl (31.0-36.0); Mean Corpuscular Hemoglobin 28.6 pg (27.0-33.0); Mean Corpuscular Volume 84.9 fL (80.0-98.0); Mean Platelet Volume 9.4 fL (9.4-12.4); Monocytes Absolute Auto 0.3 X10*3/uL (0.1-1.2); Monocytes Percent Auto 8.8 % (2-11); Neutrophils Absolute Auto 1.8 x10*3/uL (2.0-8.3); Neutrophils Percent Auto 60.6 % (45-73); Platelet Count 170 X10*3/uL (160-400); Red Blood Count 4.76 X10*6/uL (4.60-5.80); Red Cell Distribution Width 14.6 % (11.0-16.0); White Blood Count 2.9 X10*3/uL (4.8-10.8)
[2025-04-18 08:12] LABS: Basophils Percent Auto 0.7 % (0-2); Eosinophils Absolute Auto 0.1 X10*3/uL (0.0-0.4); Eosinophils Percent Auto 4.1 % (0-4); Hematocrit 40.4 % (42.0-52.0); Hemoglobin 13.6 g/dl (14.0-18.0); Imm Gran Abs Auto 0.01 X10*3/uL (0.00-0.03); Imm Gran Pct Auto 0.3 % (0.0-0.4); Lymphocytes Absolute Auto 0.8 X10*3/uL (1.2-4.9); Lymphocytes Percent Auto 26.5 % (20-40); Mean Corpuscular HGB Conc 33.7 g/dl (31.0-36.0); Mean Corpuscular Hemoglobin 28.5 pg (27.0-33.0); Mean Corpuscular Volume 84.7 fL (80.0-98.0); Mean Platelet Volume 9.3 fL (9.4-12.4); Monocytes Absolute Auto 0.3 X10*3/uL (0.1-1.2); Monocytes Percent Auto 9.3 % (2-11); Neutrophils Absolute Auto 1.7 x10*3/uL (2.0-8.3); Neutrophils Percent Auto 59.1 % (45-73); Platelet Count 170 X10*3/uL (160-400); Red Blood Count 4.77 X10*6/uL (4.60-5.80); Red Cell Distribution Width 14.6 % (11.0-16.0); White Blood Count 2.9 X10*3/uL (4.8-10.8)
[2025-04-18 09:08] LABS: Alanine Aminotransferase 27 U/L (0-40); Albumin Level 4.2 g/dL (3.5-5.0); Alkaline Phosphatase 73 U/L (39-117); Anion Gap 11 (12-20); Aspartate Amino Transferase 26 U/L (5-37); Bilirubin Total 0.6 mg/dL (0.0-1.0); Blood Urea Nitrogen 20 mg/dL (9-16); Calcium 9.4 mg/dL (8.4-10.2); Carbon Dioxide 26 mmol/L (22-29); Chloride 107 mmol/L (96-108); Cholesterol 217 mg/dL (<200); Estimated Glomerular Filt Rate > 60; Glucose Fasting 96 mg/dL (60-99); HDL Cholesterol 70 mg/dL (>40); Iron 73 mcg/dL (45-160); LDL Cholesterol Calculated 129 mg/dL (<100); Percent Iron Saturation 25 % (15-50); Potassium 4.2 mmol/L (3.3-5.1); Sodium 140 mmol/L (135-145); Total Iron Binding Capacity 290 mcg/dL (228-428); Total Protein 6.6 g/dL (6.5-8.0); Triglycerides 93 mg/dL (<150); Unsaturated Iron Binding 217 ug/dL
[2025-04-18 09:13] LABS: PSA,Total (Free>4and<10) 0.41 ng/mL (0.00-4.00); Vitamin D 25-OH Total 31.2 ng/mL (>30)
[2025-04-18 09:24] LABS: Ferritin 62 ng/mL (20-250)
[2025-04-18 09:25] LABS: Folate 10.5 ng/mL (> or = 4.0); Vitamin B12 386 pg/mL (200-900)
[2025-04-20 07:14] LABS: IgA 174 mg/dL (47-310); IgG 813 mg/dL (600-1640); IgM 38 mg/dL (50-300)
[2025-04-21 18:19] LABS: Prot Elec - Albumin 4.2 g/dL (3.8-4.8); Prot Elec - Alpha1 0.2 g/dL (0.2-0.3); Prot Elec - Alpha2 0.6 g/dL (0.5-0.9); Prot Elec - Beta 1 0.4 g/dL (0.4-0.6); Prot Elec - Beta 2 0.3 g/dL (0.2-0.5); Prot Elec - Gamma 0.7 g/dL (0.8-1.7); Prot Elec - Total Protein 6.4 g/dL (6.1-8.1)
== END 2025-04-18 07:08 | disposition home or self-care (01) ==
LOC: HO.LAB 07:07
PROVIDERS: Absent Provider Internal Medicine; PCP Internal Medicine; Visit Provider Internal Medicine
DX: D50.9 Iron deficiency anemia, unspecified (principal); D72.819 Decreased white blood cell count, unspecified; N40.0 Benign prostatic hyperplasia without lower urinary tract symptoms; Z00.01 Encounter for general adult medical examination with abnormal findings; K20.90 Esophagitis, unspecified without bleeding; Z13.220 Encounter for screening for lipoid disorders; Z12.5 Encounter for screening for malignant neoplasm of prostate; Z13.6 Encounter for screening for cardiovascular disorders
CPT/HCPCS: 36415; 80053; 80061; 82306; 82607; 82728; 82746; 82784; 83540; 84153; 84165; 85025; 86334

== ENCOUNTER 2025-04-21 09:25 | Outpatient (AMB) | payer OTHER, SELFPAY ==
--- NOTE | 2025-04-21 09:28 | A.OFFPC_ITS ---
Vital Signs 04/21/25 09:33 Height 5 ft 10 in Weight 212 lb 6 oz BMI 30.5 BP 102/84 Blood Pressure Location Lt brachial Position Sitting Respiration 16 Pulse 68 Pulse Source Pulse Oximeter Temp 97.9 F Temp Source Oral Pulse Oximetry (%) 98 Oxygen Delivery Method Room Air Intake Visit Reasons: PE Intake Note: Pt is here for PE. Last Colonoscopy- 11/28/20. Allergies No Known Allergies Allergy (Verified 04/25/25 04:30) Medication List - Last Reconciled 04/25/25 by Rina Hernandez MD citalopram 40 mg (2 x 20 mg) PO DAILY 90 days dicyclomine 10 mg PO TID ibuprofen 200 mg PO Q6H PRN omeprazole 20 mg PO DAILY tamsulosin 0.4 mg PO DAILY Tobacco use date assessed: 04/21/25 Dental Screening Dental Screen Date: 04/21/25 Did you have a dental visit in the last 12 months?: Yes Did you have a dental problem in the last 6 months where you did not have access to dental care?: No Was dental information given to patient?: Patient has dentist HPI PE HPI Details - The patient is a 59 year old male here today for his physical exam. - He has ongoing anemia possibly related to hemorrhoids, though iron levels have improved post-infusion. - Albarado's esophagus is managed with om eprazole; he has GERD and a hiatal hernia. - Family history reveals a mother with S tage 3 multiple myeloma. - He contends with hand pain and shoulde r issues due to osteoarthritis and a rotator cuff tear. - He is obese and maintains cholesterol with no current medications. 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 - Anxiety/depression is controlled with citalopram, while tamsulosin addresses urinary symptoms from BPH. - He has had cardiovascular assessments, although exact results are not detailed here. -up-to-date with his colon cancer screen ing, had a colonoscopy done in 2020 repeat due again in 2025 [facility] Medical History (Updated 04/21/25 @ 10:14 by Rina Hernandez MD) Albarado's esophagus determined by biopsy Pain in foot Iron deficiency anemia Seasonal allergies Benign prostatic hyperplasia Recurrent major depressive disorder, in remission Annual visit for general adult medical examination with abnormal findings Pain and swelling of left wrist COVID-19 vaccination declined Refused influenza vaccine Esophagitis determined by biopsy Hiatal hernia Vitamin D deficiency Anemia GERD (gastroesophageal reflux disease) Impotence Arthritis Acne rosacea Surgical History History of colonoscopy H/O hand surgery Family History Brother Pancreatic cancer Maternal Uncle Leukemia Colon cancer Maternal Uncle Liver cancer Father Heart disease Social History Household Members: Spouse Housing: House Alcohol intake: current Alcohol intake frequency: a few times a week Patient Tobacco Use Status: Former Tobacco user Cigarette Packs Per Day: 1 e-Cigarette/Vaping Use: Never Used Second Hand Smoke Exposure: No service: Yes ([employer]) Current occupational status: employed 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 1. Little interest or pleasure in doing things: not at all 2. Feeling down, depressed, or hopeless: several days 3. Trouble falling or staying asleep, or sleeping too much: several days 4. Feeling tired or having little energy: several days 5. Poor appetite or overeating: not at all 6. Feeling bad about yourself - or that you are a failure or have let yourself or your family down: not at all 7. Trouble concentrating on things, such as reading the newspaper or watching television: several days 8. Moving or speaking so slowly that other people could have noticed. Or the opposite - being so fidgety or restless that you have been moving around a lot more than usual: not at all 9. Thoughts that you would be better off or of hurting yourself in some way: not at all Total score: 4 Depression Screening Interpretation: Negative Depression Screening Done: Yes [id number] - PHQ-9 Billing: Yes Source: Developed by Drs. Darren Herrera, Michelle Talavera, Josesito Alvarado and colleagues, with an educational vanna from [employer]. Thrive Questionnaire Date Thrive assessed: 04/19/25 I am a: Patient What is your living situation today?: I have a steady place to live Within the past 12 months, did the food you bought not last and you didn't have the money to get more?: Never true Within the past 12 months, did you worry whether your food would run out before you got money to buy more?: Never true Do you have trouble paying for medicines?: No Do you have trouble getting transportation to medical appointments?: No Do you have trouble paying your heating and electricity bill?: No Do you have trouble taking care of your child, family member or friend?: No Do you have trouble with day-to-day activities such as bathing, preparing meals, shopping, managing finances, etc.?: No Are you currently unemployed and looking for a job?: No Are you interested in more education?: No Please select the resources that you would like help with: None Currently or been in a relationship where the following occur: No concerns reported THRIVE Score: 0 AUDIT C Alcohol Use Questionnaire (AUDIT-C) 1. How often do you have a drink containing alcohol?: 2-4 times a month 2. How many drinks containing alcohol do you have on a typical day when you are drinking?: 3 or 4 3. How often do you have six or more drinks on one occasion?: Less than monthly Total Score: 4 IRIS-7 AMB Questionnaire IRIS-7 Date IRIS - 7 assessed: 04/20/24 Feeling nervous, anxious, or on edge: 2 = More than half the days Not being able to stop or control worryin = Not at all Worrying too much about different things: 0 = Not at all Trouble relaxin = Several days Being so restless that it is hard to sit still: 1 = Several days Becoming easily annoyed or irritable: 0 = Not at all Feeling afraid as if something awful might happen: 0 = Not at all Total IRIS-7 score (0-4 normal; 5-9 mild; 10-14 moderate; 15-21 severe): 4 Source: Developed by Drs. Darren Herrera, Michelle Talavera, Josesito Alvarado and colleagues, with an educational vanna from [employer]. Review of Systems Const Denies fatigue, Denies fever(s), Denies headache(s) and Denies weakness Eyes Denies change in vision ENT Denies dizziness and Denies headache(s) Card Denies chest pain, Denies lightheadedness, Denies palpitations and Denies dyspnea Resp Denies cough and Denies dyspnea GI Reports no additional complaints Denies urinary frequency and Denies urinary urgency Musc Reports as per HPI Skin/Breast Denies lesions and Denies rash Neuro Denies dizziness, Denies headache(s) and Denies weakness Psych Reports no additional complaints Endo Denies fatigue, Denies polydipsia, Denies polyuria and Denies palpitations Jony/Lymph Denies easy bruising Aller/Immun Denies seasonal rhinorrhea Physical exam (Primary Care) Vital Signs: Last Vital Signs Temp 97.9 F 04/21/25 09:33 Pulse 68 04/21/25 09:33 Resp 16 04/21/25 09:33 BP 102/84 04/21/25 09:33 Pulse Ox 98 04/21/25 09:33 Oxygen Delivery Method Room Air 04/21/25 09:33 BMI result Body Mass Index 30.5 Tobacco/Smoking Status: Tobacco use Status Tobacco use date assessed 04/21/25 04/21/25 09:37 Patient Tobacco Use Status Former Tobacco user 04/21/25 09:29 e-Cigarette/Vaping Use Never Used 04/21/25 09:29 PHQ-9: PHQ-9 Score PHQ-9: Total score 4 04/21/25 09:55 Depression Screening Interpretation: Negative Thrive Assessment: Date of Thrive Assessment Date Thrive assessed 04/19/25 04/21/25 09:29 Currently or been in a relationship where the following occur: No concerns reported Advance Care Planning discussion: Completed/Scanned Date of discussion: 04/21/25 Who was present: Patient Forms completed: Health Care Proxy Time spent: 16-45 minutes Actual minutes spent: 2 Const General: cooperative, comfortable and no acute distress Orientation/consciousness: patient oriented x3 HENMT Head: Yes normocephalic Ears: hearing grossly normal bilaterally, external ears normal, TM's normal bilaterally and EAC's normal General nose exam: Normal external nose present Face and sinus: Yes face symmetric Mouth: Normal oral and palatal mucosa present, oropharynx normal and moist mucous membranes Eyes General: appearance normal, both eyes and all related structures Neck Neck: Yes full ROM, Yes no lymphadenopathy and Yes supple Chest Chest palpation & inspection: normal inspection of the chest and normal palpation of entire chest wall Resp Effort & Inspection: normal respiratory effort and able to speak in complete sentences Auscultation: clear to auscultation bilaterally Cardio Rate: regular rate Rhythm: regular rhythm Heart sounds: S1 normal heart sound present and S2 normal heart sound present GI Palpation (GI): Soft to palpation, nontender, no guarding and no masses Male General Exam: Yes normal external exam Back/Spine/Pelvis Thoracic/Lumbar Spine: straight leg raise negative bilaterally and paraspinal muscle tenderness on the right in the lower lumbar Skin General skin exam: no rashes or lesions noted Neuro General: patient oriented x3, gait normal, moves all extremities and no focal motor deficits Cognition (Neuro): normal cognition Gait exam (Neuro): Normal gait present Extrem General: Yes full ROM, Yes no joint enlargement, Yes no clubbing, cyanosis or edema and Yes normal gait Psych Appearance: grossly normal Mental Status: mental status grossly normal Speech and movement: Normal speech and movement present Affect: normal affect Attitude: cooperative Thought process: Normal thought process present Thought content: Normal thought content present Results Reviewed Results Reviewed: Name: Collin Fuller Jr Age/Sex: 59/M : 1965 Unit#: [id number] Attend Dr: Rina Hernandez MD Re04/18/25 Status: DEP [facility] Disch: SPEC : [id number] ARABELLA: 04/18/25 STATUS: COMP REQ : [id number] RECD: 04/18/[address]: Rina Hernandez MD COMP: 04/18/25 ENTERED: 04/18/[address] [facility] [address]: Karina Zaidi MD ORDERED: CBC Auto Diff Test Result Flag Reference WBC 2.9 L 4.8-10.8 X10*3/uL RBC 4.77 4.60-5.80 X10*6/uL HGB 13.6 L 14.0-18.0 g/dl HCT 40.4 L 42.0-52.0 % MCV 84.7 80.0-98.0 fL MCH 28.5 27.0-33.0 pg MCHC 33.7 31.0-36.0 g/dl RDW 14.6 11.0-16.0 % PLT 170 160-400 X10*3/uL MPV 9.3 L 9.4-12.4 fL Neut Pct Auto 59.1 45-73 % ImGran Pct Auto 0.3 0.0-0.4 % Lymp Pct Auto 26.5 20-40 % Pender Pct Auto 9.3 2-11 % Eos Pct Auto 4.1 H 0-4 % Baso Pct Auto 0.7 0-2 % NRBC Pct Auto 0.0 0.0-0.2 /100WBC ANC Neut Abs # 1.7 L 2.0-8.3 x10*3/uL ImGran Abs Auto 0.01 0.00-0.03 X10*3/uL Lymph Abs Auto 0.8 L 1.2-4.9 X10*3/uL Pender Abs Auto 0.3 0.1-1.2 X10*3/uL Eos Abs Auto 0.1 0.0-0.4 X10*3/uL Baso Abs Auto 0.0 0.0-0.2 X10*3/uL NRBC Abs Auto 0.000 0.0-0.012 X10*3/uL Name: Collin Fuller Jr Age/Sex: 59/M : 1965 Unit#: [id number] Attend Dr: Rina Hernandez MD Re04/18/25 Status: DEP REF Location: [facility] Disch: SPEC : [id number] ARABELLA: 04/18/25 STATUS: COMP REQ : [id number] RECD: 04/18/[address] [facility] [address]: Karina Zaidi MD COMP: 04/18/25 ENTERED: 04/18/[address] [facility] [address]: Rina Hernandez MD ORDERED: CMP Fast, IRON PROF, Ferritin, Lipid Panel Test Result Flag Reference Sodium 140 135-145 mmol/L Potassium 4.2 3.3-5.1 mmol/L CL 107 96-108 mmol/L CO2 26 22-29 mmol/L Gap 11 L 12-20 BUN 20 H 9-16 mg/dL Creat 1.09 0.5-1.4 mg/dL eGFR > 60 Chronic Kidney Disease: Estimated GFR < 60 mL/min/1.73m2 Severe Kidney Disease: Estimated GFR < 15 mL/min/1.73m2 FBS 96 60-99 mg/dL CA 9.4 8.4-10.2 mg/dL Iron 73 45-160 mcg/dL TIBC 290 228-428 mcg/dL Saturation 25 15-50 % UIBC 217 ug/dL Ferritin 62 20-250 ng/mL Total Bili 0.6 0.0-1.0 mg/dL AST (GOT) 26 5-37 U/L ALT (GPT) 27 0-40 U/L Protein, Total 6.6 6.5-8.0 g/dL Alb 4.2 3.5-5.0 g/dL Triglyceride 93 <150 mg/dL Desirable Triglyceride: less than 150 mg/dL Borderline High Triglyceride 150-199 mg/dL High Triglyceride: 200-499 mg/dL Very High Triglyceride: greater than or equal to 5OO mg/dL Cholesterol 217 H <200 mg/dL Desirable Cholesterol: less than 200 mg/dL Borderline High Cholesterol: 200-239 mg/dL High Cholesterol: greater than 239 mg/dL LDL Calculated 129 H <100 mg/dL Desirable LDL: less than 100 mg/dL Near Optimal/Above Optimal LDL: 110-129 mg/dL Borderline High LDL: 130-159 mg/dL High LDL: 160-189 mg/dL Very High LDL: greater than or equal to 190 mg/dL HDL 70 >40 mg/dL Desirable HDL: greater than 40 mg/dL Note: This HDL assay may give artificially low results in patients with liver disease. Alk Phos 73 39-117 U/L Coding Level of Care Code Est Pt Prev Care 40-64y(51325) Diagnoses Annual visit for general adult medical examination with abnormal findings Z00.01 Recurrent major depressive disorder, in remission F33.40 Benign prostatic hyperplasia N40.0 Leucopenia D72.819 Iron deficiency anemia D50.9 Arthritis of right glenohumeral joint M19.011 CMC arthritis, thumb, degenerative M18.9 Advanced directives, counseling/discussion Z71.89 Additional Codes PHQ-9 - 01142 - PHQ-9 Billing: Yes ([id number]) Vital Signs *Quality* - Advance Care Planning discussion: Completed/Scanned ([id number]) Vital Signs *Quality* - Time spent: 16-45 minutes ([id number]) Assessment & Plan Assessment & Plan (1) Annual visit for general adult medical examination with abnormal findings: Code(s): Z00.01 - Encounter for general adult medical examination with abnormal findings Category: Medical (2) Recurrent major depressive disorder, in remission: Code(s): F33.40 - Major depressive disorder, recurrent, in remission, unspecified Category: Medical (3) Benign prostatic hyperplasia: Code(s): N40.0 - Benign prostatic hyperplasia without lower urinary tract symptoms Category: Medical (4) Leucopenia: Code(s): D72.819 - Decreased white blood cell count, unspecified Category: Medical (5) Iron deficiency anemia: Code(s): D50.9 - Iron deficiency anemia, unspecified Category: Medical (6) Arthritis of right glenohumeral joint: Code(s): M19.011 - Primary osteoarthritis, right shoulder Category: Medical (7) CMC arthritis, thumb, degenerative: Code(s): M18.9 - Osteoarthritis of first carpometacarpal joint, unspecified Category: Medical (8) Advanced directives, counseling/discussion: Code(s): Z71.89 - Other specified counseling Plan Today's discussion involved reviewing the patient's complex medical history, focusing on multifaceted chronic conditions. We explored anemia etiology, predominantly attributed to hemorrhoidal bleeding, with ongoing monitoring since iron levels stabilized post-infusion. The potential risks and benefits of GERD management with omeprazole were reiterated, addressing Albarado's esophagus with lifestyle adjustments to minimize reflux episodes. Addressed were musculoskeletal pain management options, endorsing topical NSAID gels to alleviate joint discomfort from osteoarthritis and preserving gastrointestinal health. On anxiety/depression, citalopram remains effective without foreseeable need to modify. We discussed prostate monitoring due to benign prostatic hyperplasia, a non-escalating symptom control with tamsulosin. Emphasized were the preventative measures alongside the immediate issues; next a scheduled colonoscopy and the significance of managed cholesterol levels were pinpointed. Orders: Orders Basic Metabolic Panel Fasting 1 Year F33.40 - Major depressive disorder, recurrent, in remission, unspecified, K22.70 - Albarado's esophagus without dysplasia, Z00.01 - Encounter for general adult medical examination with abnormal findings, Z13.1 - Encounter for screening for diabetes mellitus, Z13.220 - Encounter for screening for lipoid disorders PSA,Total (Free>4and<10) 1 Year F33.40 - Major depressive disorder, recurrent, in remission, unspecified, K22.70 - Albarado's esophagus without dysplasia, Z00.01 - Encounter for general adult medical examination with abnormal findings, Z13.1 - Encounter for screening for diabetes mellitus, Z13.220 - Encounter for screening for lipoid disorders Lipid Panel 1 Year F33.40 - Major depressive disorder, recurrent, in remission, unspecified, K22.70 - Albarado's esophagus without dysplasia, Z00.01 - Encounter for general adult medical examination with abnormal findings, Z13.1 - Encounter for screening for diabetes mellitus, Z13.220 - Encounter for screening for lipoid disorders Aspartate Amino Transferase 1 Year F33.40 - Major depressive disorder, recurrent, in remission, unspecified, K22.70 - Albarado's esophagus without dysplasia, Z00.01 - Encounter for general adult medical examination with abnormal findings, Z13.1 - Encounter for screening for diabetes mellitus, Z13.220 - Encounter for screening for lipoid disorders Alanine Aminotransferase 1 Year F33.40 - Major depressive disorder, recurrent, in remission, unspecified, K22.70 - Albarado's esophagus without dysplasia, Z00.01 - Encounter for general adult medical examination with abnormal findings, Z13.1 - Encounter for screening for diabetes mellitus, Z13.220 - Encounter for screening for lipoid disorders Vitamin D 25-OH Total 1 Year F33.40 - Major depressive disorder, recurrent, in remission, unspecified, K22.70 - Albarado's esophagus without dysplasia, Z00.01 - Encounter for general adult medical examination with abnormal findings, Z13.1 - Encounter for screening for diabetes mellitus, Z13.220 - Encounter for screening for lipoid disorders Medications: Refilled citalopram 40 mg (2 x 20 mg) PO DAILY 90 days 180 tabs 4RF F32.9 - Major depressive disorder, single episode, unspecified
[2025-04-21 09:33] VITALS: BP 102/84; PULSE 68; RESP 16; TEMP 36.6; O2SAT 98; BMI 30.5
--- OUTSIDE RECORDS SUMMARY | 2025-04-21 09:44 | XMS_ITS | Patient Health Record ---
Author Organization [facility] Address [address] [place] [address] Care Team Providers Care Lead Warehouse Associate Name Role Phone David GAMBLE, Rina Primary Care Provider Darren Joseph Unavailable [phone] Allergies No Known Allergies Results Component Value Reference Range Notes Pathology (Not yet reviewed by provider) Interpretation: Performing Lab:[facility], [address] [place] [phone] Notes/Report: Name: Clayton Freitas Jr Age/Sex: 58/M : 1965 Unit#: [id number] Attend Dr: Darren Awan MD Re05/23/24 Status : [facility] Location: [facility] Disch: SPEC : [id number] RECD : 05/23/24 STATUS: ISAAC ARREDONDO NUM: [id number] ARABELLA: 05/23/24-1017 [facility] DR: Darren Awan MD ENTERED: 05/23/24 SP TYPE: Surgical OTHR DR: Rina Hernandez MD ORDERED: Gross Micro L4, Eso bx BA w/exc COMMENTS: 10 additio nal unstained slides sent to Tray on 07/05/24, per their request. 8 unstained slides s ent to Tray for TissueCypher on 05/27/24. Addendum Addendum 1 Entered: 10/13/24 TissueCypher: Risk c lass Low; risk score 1.3 See report in its en tirety in the EMR - Reports/Pathology section as a scanned report (camera icon). If ap propriate, a copy has also been sent to the ordering provider's office. Addendum Signed ____ __(signature on file) West Vela MD 10/13/24910 Diagnosis Esophagus, 34-36 cm, biopsy: - Albarado esophagus with background moderate chronic inactive inflammation. - No dysplasia seen. - Squamous mucosa wi thin normal limits. Clinical History Pre-Op Dx: Albarado's Post-Op Dx: Hiatal h ernia, Albarado's, reflux Microscopic Description Microscopic sections reviewed. Material Received Esophagus 34 - 36, h/o Albarado's CONTINUED ON NEXT PAGE Name: Clayton Freitas Jr Age/Sex: 58/M : 1965 Unit#: [id number] Attend Dr: Darren Awan MD Re05/23/24 Status : [facility] Location: [facility] Disch: SPEC : [id number] RECD : 05/23/24-1113 STATUS: [facility] NUM: [id number] ARABELLA: 05/23/24-1017 [facility] DR: Darren Awan MD ENTERED: 05/23/24- 21 SP TYPE: Surgical OTHR DR: Rina Hernandez MD ORDERED: Gross Micro L4, Eso bx BA w/exc COMMENTS: 10 additio nal unstained slides sent to Tray on 07/05/24, per their request. 8 unstained slides s ent to Tray for TissueCypher on 05/27/24. Gross Description Received in formalin labeled ?esophagus at 34-36 cm? are 6 garay and garay-pink irregular tissue fragments ranging fr om 0.15-0.3 cm, submitted in toto in a cassette labeled A. CEDS Copies To: Rina Hernandez MD [facility], [place] [address] [place] [address] Darren Awan MD [facility] [address] [place], [place] [id number] Signed (si gnature on file) West Vela MD 05/25/24 1208 END OF REPORT Reason For Referral No Information Medications Medication SIG (Take, Route, Frequency, Duration) Notes Start Date End Date Status Omeprazole Active Tamsulosin HCl 0.4 MG 1 capsule 30 minut es after the same meal each day Orally Once a day for 30 day(s) Active CeleXA 20 MG Orally Active Dicyclomine HCl 10 MG 1-2 Orally Q 6 kian rs prn abdomianal cramps and bloating for 30 day(s) Active Vitamin D Not-Taking Ibuprofen PRN Not-Taking Tylenol PRN Not-Taking Immunizations Vaccine Route Administration Date Status Comme nts Influenza Unknown 10/24/2020 Refused Social History Alcohol Screen Question Answer Notes Did you have a drink containing alcohol in the p ast year? No Points 0 Interpretation Negative Section Notes: Nonsmoker except an occasion al cigar; occasional alcohol. Nonsmoker except an occasion al cigar; occasional alcohol. Nonsmoker; no alcohol 2 or 3 large cups of coffee Problems Problem Type SNOMED Code ICD Code Onset Dates Problem Status W/U Status Risk Notes Problem Irritable bowel syndrome (47272298) Irritable bowel syndrome (K58.9) Active confirmed Problem 005868416 Encounter for screening for malignant neoplasm of colon (Z12.11) Active confirmed Problem Screening for malignant neoplasm of rectum (116556488) Encounter for screening for malignant neoplasm of rectum (Z12.12) Active confirmed Problem Gastroesophageal reflux disease (K21.9) Active confirmed Problem 11158210 Preprocedural examination (Z01.818) Active confirmed Problem 098892978 Family history o f colon cancer (Z80.0) Active confirmed Problem Gastroesophageal reflux disease (729917834) GERD (gastroesophageal reflux disease) (K21.9) Active confirmed Problem Albarado esophagus (781772436) 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) Active confirmed Problem Generalized abdominal pain (051091130) Abdominal pain, acute, generalized (R10.84) Active confirmed Problem Gastroesophageal reflux disease (411152030) Chronic GERD (K21.9) Active confirmed Encounters Encounter Location Date Provider Diagnosis [facility] Outpatient [address], [place] [phone] 05/23/2024 Darren Awan Hiatal hernia K44.9 ; Gastroesophageal reflux disease K21.9 and 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 [facility] [address] [place] [address] 05/16/2024 Darren Awan Assessments Encounter Date Diagnosis (ICD Code) Assessment Notes Treatment Notes Treatment Clinical Notes Section Notes 05/23/2024 Gastroesophageal reflux disease (ICD-10 - K21.9) 05/23/2024 Hiatal hernia (ICD-10 - K44.9) 05/23/2024 Albraado esophagus (ICD-10 - K22.70) Plan Of Treatment Pending Test Test Name Order Date CELIAC PANEL #10 10/24/2020 US ABD 10/24/2020 Pathology 05/23/2024 Future Test Test Name Order Date COLONOSCOPY 01/18/2016 UPPER GI ENDOSCOPY 10/24/2020 COLONOSCOPY 10/24/2020 UPPER GI ENDOSCOPY 02/17/2024 Insurance Providers Payer Name Payer Address Payer Phone Subscriber Number Group Number Insured Name Patient Relationship to Insured Coverage Start Date Coverage End Date [facility] [address] [place], [place] [id number] [phone] [id number] CLAYTON FREITAS Self - patient is the insured Medical (General) History Medical History History ICD Code Denies [place],DM,CVA,Lung disease,renal dise ase Depression BPH Neg. colonoscopy in 03/2016 and 11/2020 GERD-EGD 11/2020 with Albarado 's and a HH. Biopsies from the Albarado's esophagus were negative for dysplasia. Duodenal biopsies were negative for celiac disease Irritable bowel syndrome. Surgical History Surgery Date(Month/Year) STL Fusion right hand 2007
== END 2025-04-21 10:15 | disposition home or self-care (01) ==
LOC: HO.HMCC 09:26
PROVIDERS: PCP Internal Medicine; Visit Provider Internal Medicine
DX: Z00.01 Encounter for general adult medical examination with abnormal findings (principal); F33.40 Major depressive disorder, recurrent, in remission, unspecified; N40.0 Benign prostatic hyperplasia without lower urinary tract symptoms; D72.819 Decreased white blood cell count, unspecified; D50.9 Iron deficiency anemia, unspecified; M19.011 Primary osteoarthritis, right shoulder; M18.9 Osteoarthritis of first carpometacarpal joint, unspecified; Z71.89 Other specified counseling; Z00.00 Encounter for general adult medical examination without abnormal findings

== ENCOUNTER → 2025-04-21 09:25 | Outpatient (BNVA) | payer OTHER, SELFPAY | PROVIDERS: PCP Internal Medicine; Visit Provider Internal Medicine | DX: Z00.01 Encounter for general adult medical examination with abnormal findings (principal); F33.40 Major depressive disorder, recurrent, in remission, unspecified; N40.0 Benign prostatic hyperplasia without lower urinary tract symptoms; K64.9 Unspecified hemorrhoids; K21.9 Gastro-esophageal reflux disease without esophagitis; K44.9 Diaphragmatic hernia without obstruction or gangrene; E66.9 Obesity, unspecified; D72.819 Decreased white blood cell count, unspecified; D50.9 Iron deficiency anemia, unspecified; M19.011 Primary osteoarthritis, right shoulder; M18.9 Osteoarthritis of first carpometacarpal joint, unspecified; Z68.30 Body mass index [BMI] 30.0-30.9, adult; Z71.89 Other specified counseling | CPT/HCPCS: 96127; 99497 ==

== ENCOUNTER 2025-05-30 10:51 | Outpatient (REF) | payer OTHER, SELFPAY ==
--- OUTSIDE RECORDS SUMMARY | 2025-05-31 11:58 | XMS_ITS | Patient Health Record ---
Author Organization [facility] chayo Penrose Address [address] [place] [address] Care Team Providers Care Color Corrector Name Role Phone David GAMBLE, Rina Lundberg Primary Care Provider Un available Amy Mora Unavailable [phone] Allergies No Known Allergies Reason For Referral Diagnosis 1 Plantar fasciitis, b ilateral (M72.2) Diagnosis 2 Bursitis of right fo ot (M77.51) Diagnosis 3 Bursitis of left amy t (M77.52) Diagnosis 4 Other myositis of ri ght foot (M60.871) Diagnosis 5 Other myositis of le ft foot (M60.872) Diagnosis 6 Pain in left foot (M 79.672) Diagnosis 7 Pain in right foot ( M79.671) Referring Provider First Name Rina Dasilva Referring Provider Last Name David Referring Provider Speciality Internal M edicine [facility] Referred Provider Amy Mora Referred Address [address] [facility],[place], [place],[address], Referred Provider Specialty Podiatry Referral Priority Routine Medications Medication SIG (Take, Route, Fr equency, Duration) Notes Start Date End Date Status Omeprazole Active Ibuprofen 800 MG 1 tablet with food o r milk as needed Orally Three times a day; Duration: 30 days 02/08/2025 Active Tamsulosin HCl Activ e Citalopram Hydrobromide Active Physical Therapy . . . 2-3x/week; Durat ion: 3-4 weeks 04/19/2025 Active Social History Tobacco Use: Social History Observation Description Date Details (start date - stop date) Never Smoker NA - NA Tobacco use other than smoking: Question Answer Notes Are you an other tobacco user? No Tobacco Control (Standard) Question Answer Notes Tobacco use: Nonsmoker Additional Findings: Tobacco non-user Current no nsmoker AUDIT-C (Standard) Question Answer Notes Did you have a drink contain ing alcohol in the past year? Yes How often did you have a dri nk containing alcohol in the past year? Never (0 point) How many drinks did you have on a typical day when you were drinking in the past year? 1 or 2 drinks (0 point) How often did you have six o r more drinks on one occasion in the past year? Never (0 point) Points 0 Interpretation Negative Problems Problem Type SNOMED Code ICD Code Onset Dates Problem Status W/U Status Risk Notes Problem Plantar fasciitis, bilateral (M72.2) Active confirmed Vital Signs Blood pressure diastolic 80 mm Hg 04/19/2025 Height 8ay35ma in 04/19/2025 Blood pressure systolic 120 mm Hg 04/19/2025 Weight 200 lbs 04/19/2025 BMI 28.69 kg/m2 04/19/2025 Encounters Encounter Location Date Provider Diagnosis [address] [address] 02/08/2025 Amy Mora Pain in right foot M79.671 ; Plantar fasciitis, bilateral M72.2 ; Other myositis of right foot M60.871 ; Bursitis of right foot M77.51 ; Pain in left foot M79.672 ; Other myositis of left foot M60.872 and Bursitis of left foot M77.[address] [address] 04/19/2025 Amy Mora Plantar fasciitis, bilateral M72.2 ; Pain in left foot M79.672 ; Other myositis of left foot M60.872 and Bursitis of left foot M77.[address] [address] 01/16/2025 Amy Mora [address] [address] 02/08/2025 Amy Mora [address] [place] [address] 02/08/2025 Amy Mora Assessments Encounter Date Diagnosis (ICD Code) Assessment Notes Treatment Notes Treatment Clinical Notes Section Notes 02/08/2025 Pain in right foot (ICD-10 - M79.671) 04/19/2025 Pain in left foot (ICD-10 - M79.672) 04/19/2025 Plantar fasciitis, bilateral (ICD-10 - M72.2) 04/19/2025 Other myositis of left foot (ICD-10 - M60.872) 02/08/2025 Plantar fasciitis, bilateral (ICD-10 - M72.2) Patient Educated with: HEEL CORD STRETCHES.pdf (HEEL CORD STRETCHES.pdf) Patient Educated with: RICE THERAPY.pdf (RICE THERAPY.pdf) 02/08/2025 Other myositis of right foot (ICD-10 - M60.871) 02/08/2025 Bursitis of right foot (ICD-10 - M77.51) 04/19/2025 Bursitis of left foot (ICD-10 - M77.52) 02/08/2025 Pain in left foot (ICD-10 - M79.672) 02/08/2025 Other myositis of left foot (ICD-10 - M60.872) 02/08/2025 Bursitis of left foot (ICD-10 - M77.52) Plan Of Treatment Pending Test Test Name Order Date X ray : Foot, left 3V 02/08/2025 X ray : Foot, right 3V 02/08/2025 Next Appt Details Provider Name:Amy lopez, 06/06/2025 04:00:00 PM, [address] [facility], [place], [address], Insurance Providers Payer Name Payer Address Payer Phone Subscriber Number Group Number Insured Name Patient Relationship to Insured Coverage Start Date Coverage End Date [facility] [address] [place] [address] [id number] Collin Fuller Self - patient is the insured Medical (General) History Medical History History ICD Code Anemia Anxiety Arthritis Back,Hip,and Knee pain covid-19 Depression Measles Chicken pox Leukopenia Surgical History Surgery Date(Month/Year) STL Fusion Right Hand 01/2008
--- OUTSIDE RECORDS SUMMARY | 2025-05-31 11:58 | XMS_ITS | Patient Health Record ---
Author Organization [facility] Address [address] [place] [address] Care Team Providers Care Security Attendant Name Role Phone David GAMBLE, Rina Primary Care Provider Darren Joseph Unavailable [phone] Allergies No Known Allergies Reason For Referral No Information Medications Medication [...] Status Risk Notes Problem Irritable bowel syndrome (49944398) Irritable bowel syndrome (K58.9) Active confirmed Problem 714215934 Encounter for screening for malignant neoplasm of colon (Z12.11) Active confirmed Problem Screening for malignant neoplasm of rectum (648163946) Encounter for screening for malignant neoplasm of rectum (Z12.12) Active confirmed Problem Gastroesophageal reflux disease (K21.9) Active confirmed Problem 73959280 Preprocedural examination (Z01.818) Active confirmed Problem 163294812 Family history o f colon cancer (Z80.0) Active confirmed Problem Gastroesophageal reflux disease (638163351) GERD (gastroesophageal reflux disease) (K21.9) Active confirmed Problem Albarado esophagus (375073551) 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) Active confirmed Problem Generalized abdominal pain (995837092) Abdominal pain, acute, generalized (R10.84) Active confirmed Problem Gastroesophageal reflux disease (421473592) Chronic GERD (K21.9) Active confirmed Plan Of Treatment Pending Test Test Name Order Date CELIAC PANEL #10 10/24/2020 US ABD 10/24/2020 Pathology 05/23/2024 Future Test Test Name Order Date COLONOSCOPY 01/18/2016 UPPER GI ENDOSCOPY 10/24/2020 COLONOSCOPY 10/24/2020 UPPER GI ENDOSCOPY 02/17/2024 Insurance Providers Payer Name Payer Address Payer Phone Subscriber Number Group Number Insured Name Patient Relationship to Insured Coverage Start Date Coverage End Date [facility] [address] [place], [place] [id number] CLAYTON FREITAS Self - patient is the insured Medical (General) History Medical History History ICD Code Denies [place],DM,CVA,Lung disease,renal dise ase Depression BPH Neg. colonoscopy in 03/2016 and 11/2020 GERD-EGD 11/2020 with [facility] and a HH. Biopsies from the Albarado's esophagus were negative for dysplasia. Duodenal biopsies were negative for celiac disease Irritable bowel syndrome. Surgical History Surgery Date(Month/Year) STL Fusion right hand 2007
== END 2025-05-30 10:52 | disposition home or self-care (01) ==
LOC: HO.HOSX 10:51
PROVIDERS: Visit Provider Orthopaedic Surgery
DX: Z13.89 Encounter for screening for other disorder (principal)

== ENCOUNTER 2025-05-31 13:02 | Outpatient (AMB) | payer OTHER, SELFPAY ==
--- NOTE | 2025-05-31 13:27 | A.OFFVIS_ITS ---
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 Injection administered on 12/28/24. States last injection did not helped relieve pain and would like to discuss other treatment options. Allergies No Known Allergies Allergy (Verified 05/31/25 13:40) HPI HPI ov-LT wrist pain: Details: Collin is a 59 year old right hand dominant man who returns to discuss his left wrist & basal joint OA. His chief complaint is of pain, worse with pinching gripping activities, in the area of the left basal joint. He received a radioscaphoid joint injection on 03/22/24, and a basal joint injection on 12/28/24. He says the basal joint injection did not give him relief, but it was noted he had good early relief before leaving clinic, following his injection. He says he had worsening pain in his injection site at the base of his thumb for about 2 weeks following the injection. He continues to complain of pain at the base of his thumb, which he says radiates into his wrist. . He primarily complains of pain with heavy gripping activities. He says his pain is worse at the end of a work shift, and is painful at night which is affecting his sleep.? 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 His work involves lots of heavy pushing and pulling, including with his wrist and hyper extension. He also has a lot of heavy gripping which is also painful. He has tried wearing his wrist brace at work but this interferes with his duties & performance. His right wrist and hand are not bothering him very much His left wrist has felt better since the injection about a year ago. Hx of right STT arthrodesis performed by Dr. Ortiz.?He has had more limited wrist range of motion following the surgery, but good relief of his pain in this wrist. [facility] Medical History (Updated 04/21/25 @ 10:14 by Rina Hernandez MD) Albarado's esophagus determined by biopsy Pain in foot Iron deficiency anemia Seasonal allergies Benign prostatic hyperplasia Recurrent major depressive disorder, in remission Annual visit for general adult medical examination with abnormal findings Pain and swelling of left wrist COVID-19 vaccination declined Refused influenza vaccine Esophagitis determined by biopsy Hiatal hernia Vitamin D deficiency Anemia GERD (gastroesophageal reflux disease) Impotence Arthritis Acne rosacea Surgical History History of colonoscopy H/O hand surgery Family History Brother Pancreatic cancer Maternal Uncle Leukemia Colon cancer Maternal Uncle Liver cancer Father Heart disease Social History Household Members: Spouse Housing: House Alcohol intake: current Alcohol intake frequency: a few times a week Patient Tobacco Use Status: Former Tobacco user Cigarette Packs Per Day: 1 e-Cigarette/Vaping Use: Never Used Second Hand Smoke Exposure: No service: Yes ([employer]) Current occupational status: employed 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, 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 Cognitive needs: No Hearing needs: No Vision needs: Yes Physical Exam Vital Signs: BMI result Body Mass Index 30.4 Const General: no acute distress and alert Orientation/consciousness: patient oriented x3 Neuro General: patient oriented x3 Extrem Other: Evaluation of Left Upper Extremity: The patient is alert, oriented, and in no acute distress Neuro: Median, Ulnar, Radial nerves motor and sensory intact and sensation is normal to the tips of all digits Vascular: Cap refill brisk ROM: He can make a fist with good strength and no pain, and extend all his digits Full and symmetrical pronosupination He has ~75 degrees flexion & ~75 degrees extension of his left wrist His left wrist ROM is better when compared to his right wrist. Radial deviation of the wrist did not cause him pain No tenderness today over the STT joint Most tender over the left basal joint + shoulder sign + CMC grind No tenderness over the radiocarpal joint No tenderness over the ulnocarpal joint No tenderness over the MCP joint of the thumb or A1 jason Not particularly tender over the 1st dorsal compartment Negative Kristel test bilaterally Radiation of pain to the radial aspect of the forearm Radiographs: 3 views of the left wrist were taken and viewed by me today in clinic. They show almost complete loss of the STT joint, and basal joint osteoarthritis, with osteophyte formation. He has some narrowing of the mid-carpal joint between the lunate and the capitate. Left wrist MRI: IMPRESSION: 1. There is arthritis in the wrist, detailed above. More prominent changes include severe triscaphe joint arthritis. There is capitate-lunate arthritis, with dorsal tilt of the lunate and dorsal subluxation of the capitate, as described above. ? 2. Moderate wrist joint effusion. Small distal radioulnar joint effusion. ? 3. Flexor carpi radialis tenosynovitis, with the probable component of tendinosis. ? 4. Scapholunate ligament degeneration with probable component of focal fraying/partial tear. Lunotriquetral ligament degeneration. ? 5. Proximal surface fraying/partial tear of the triangular fibrocartilage measuring 5 mm transverse. Dictated By: Aguilar Soto MD 05/25/23 Psych Appearance: grossly normal Affect: normal affect Attitude: cooperative Office Procedures AMB Fracture Care Details: No fracture, injection Fracture Billing Code: Fracture Billing Code Assessment & Plan Assessment & Plan (1) Left wrist pain: Code(s): M25.532 - Pain in left wrist Category: Medical (2) CMC arthritis, thumb, degenerative: Code(s): M18.9 - Osteoarthritis of first carpometacarpal joint, unspecified Category: Medical (3) Arthritis of left wrist: Code(s): M19.032 - Primary osteoarthritis, left wrist Category: Medical Plan Assessment & Plan: 1. Left basal joint arthritis, S/P injection Date of injection: 05/31/25, 12/28/24, 06/22/24 This is his chief complaint today. I educated him about these conditions I discussed operative & non-operative treatment options I discussed activity modification, he should limit or avoid any heavy or repetitive pinching, gripping, or lifting activities He will continue to wear his comfort cool brace with heavy activities, and while at work. Injection #1: The risks and benefits of a steroid injection including but not limited to risk of damage to blood vessels, nerve, tendon, infection, skin bleaching, persistent or worsening pain, and failure to improve symptoms were discussed with the patient and they wish to proceed with the steroid injection. Once consent was obtained the skin over the dorsum of the Left basal joint was sterilely prepped. The joint was then injected with a combination of 1 mL of (40 mg/ml} Depo-Medrol and 1% plain Lidocaine. The patient appears to have tolerated the procedure well and with no complications. He had good early relief before leaving clinic today. He knows that they may not have another steroid injection into this joint for least 4 months. 2. Left STT joint osteoarthritis Near complete loss of the STT joint space, and may be working on an auto- arthrodesis of the STT joint Nontender over the STT joint today. 3. Left radiocarpal arthritis, S/P injection Date of injection: 03/22/24 No complaints today 4. Left wrist midcarpal osteoarthritis Evidence of narrowing between the lunate & capitate, and between the capitate & trapezoid No complaints today 5. History of right STT arthrodesis, DOS: ~[address] Ortiz at an outside clinic No complaints today Please note that greater than 30 minutes was spent with this patient going over the history, evaluating the patient and radiographs, formulating possible treatment options, discussing them with the patient, and documenting the visit. Scribed for Hannah Perez MD by Hardik Mchugh, medical record transcriber, on 05/31/25 at 2:00 PM, EST. Orders: Orders XR wrist LT min 3V Today M25.532 - Pain in left wrist Coding Level of Care Code Est Pt Level 3 (69984) Diagnoses Left wrist pain M25.532 CMC arthritis, thumb, degenerative M18.9 Arthritis of left wrist M19.032 CPT Codes Fracture Care - Fracture Billing Code: Fracture Billing Code ([id number])
[2025-05-31 13:38] VITALS: BMI 30.4
== END 2025-05-31 15:06 | disposition home or self-care (01) ==
LOC: HO.HOS 13:03
PROVIDERS: PCP Internal Medicine; Visit Provider Orthopaedic Surgery
DX: M25.532 Pain in left wrist (principal); M18.12 Unilateral primary osteoarthritis of first carpometacarpal joint, left hand; M19.032 Primary osteoarthritis, left wrist
CPT/HCPCS: 20600; 99213

== ENCOUNTER → 2025-05-31 13:14 | Outpatient (BNV) | payer OTHER, SELFPAY | PROVIDERS: Visit Provider Radiology Diagnostic Radiology | DX: M19.032 Primary osteoarthritis, left wrist (principal) | CPT/HCPCS: 73110 ==

== ENCOUNTER 2025-05-31 16:12 | Outpatient (REF) | payer OTHER, SELFPAY ==
--- NOTE | ~2025-05-31 | XR_ITS ---
EXAMINATION: XR WRIST 3 OR MORE VIEWS LEFT HISTORY: M25.532 - Pain in left wrist COMPARISON: Correlation is made with the prior examination dated 03/06/2023. FINDINGS: Three views of the left wrist are submitted. Osseous mineralization is normal. There is no fracture or dislocation. Again seen is severe arthritis between the scaphoid and trapezium. There is a punctate metallic foreign body in the dorsal soft tissues of the distal forearm. XR/XR wrist LT min 3V IMPRESSION: Severe osteoarthritis of the joint space between the scaphoid and trapezium. Electronically signed by: Darren Morales MD 05/31/2025 01:39 PM EDT
== END 2025-05-31 16:13 | disposition home or self-care (01) ==
LOC: HO.HOSX 16:12
PROVIDERS: Visit Provider Orthopaedic Surgery
DX: M25.532 Pain in left wrist (principal); M18.9 Osteoarthritis of first carpometacarpal joint, unspecified; M19.032 Primary osteoarthritis, left wrist
CPT/HCPCS: 20600; 73110; 99212; J1010; J2003

== ENCOUNTER 2025-06-09 08:19 | Outpatient (AMB) | payer OTHER, SELFPAY ==
--- OUTSIDE RECORDS SUMMARY | 2025-06-06 12:00 | XMS_ITS ---
Author Organization [facility] Address [address] [place] [address] Care Team Providers Care National Recruiter Name Role Phone David GAMBLE, Rina Lundberg Primary Care Provider Un available Amy Mora Unavailable [phone] Allergies No Known Allergies Medications Medication SIG (Take, Route, Fr equency, Duration) Notes Start Date End Date Status Omeprazole Active Citalopram Hydrobromide Active Tamsulosin HCl Activ e Ibuprofen 800 MG 1 tablet with food o r milk as needed Orally Three times a day; Duration: 30 days 02/08/2025 Active Physical Therapy . . . 2-3x/week; [...] Never (0 point) Points 0 Interpretation Negative Encounters Encounter Location Date Provider Diagnosis [facility] [address] [place] [address] 06/06/2025 Amy Mora Plan Of Treatment Next Appt Details Provider Name:Amy Mason Gareth lopez, 06/27/2025 10:15:00 AM, [address] [facility], [facility] [place], [address], Progress Notes * Collin FREITAS JrDOB:[birth year] (60 yo M)Acc No.[id number]:06/06/2025 Progress Notes Patient: Collin GORDILLO Jr Provider: Cassidy Mora DPM :1965 A ge:59 Y S ex:Male Date:06/06/2025 Address:[address] [place], [place] [id number] Pcp:Cece Spencer Subjective: * Chief Complaints: * * ROS: G eneral/Constitutional: Nausea d enies. V omiting d enies. H dg Thirst d enies. L oss appetite d enies. C hills d enies. F atigue d enies.?Fever d enies. N ight Sweats d enies. U nexplained weight loss d enies. U nexplained weight gain d enies. H EENTM: Dentures d enies. D izziness d enies. G lasses/contacts a dmits. R etinopathy d enies. B lurred/double vision d enies. T MJ?denies. D ischarge/drainage d enies. I mplants d enies. S ore throat d enies. D ental implants d enies. H kulwant of hearing d enies. D ifficulty chewing/swallowing/speaking d enies. N ose bleeds d enies. S ore mouth d enies. ? R espiratory: On Oxygen d enies. P neumonia/pleurisy d enies.?Bronchitis d enies. E mphysema d enies. C oughing d enies. C ough blood?denies. S hortness of breath d enies. W heezing d enies. C ardiovascular: Pacemaker d enies. M RENAL SOCIAL WORKER d enies. W PW d enies. C HF d enies. H eart attack d enies. S eptal defect d enies. R apid beat d enies. C hest pain d enies. A trial Fib. d enies. M urmur/Palpitations d enies. G astrointestinal: Hemorrhoids a dmits. S tomach/Abdominal pain d enies. D ark blood stool d enies. I rritable bowel d enies. C onstipation d enies. D iarrhea d enies. H ematology: Swelling d enies. C lots d enies. V aricose Veins d enies. B ruising d enies. B leeding problem d enies. G enitourinary: Blood urine d enies. F requent/Painfu/urination/bladder control d enies. K idney stones d enies. I nfection (UTI) d enies. N ephropathy d enies. s ex trans dis (STD) d enies. P rostate d enies. M usculoskeletal: Hammertoes d enies. B unions d enies. B ack Pain d enies. M uscle Cramps/ Resting a dmits. M uscle cramps / walking a dmits.?Generalized aches and pains a dmits. W eakness d enies. I nteg.: Pyle a dmits. S cars a dmits. C orns/calluses?denies. I ngrown nails d enies. P ainful nails d enies. O pen Sores d enies. R ashes d enies. N eurologic: Difficulty sleeping d enies. B rain disorder d enies. N umbness d enies. B alance trouble d enies. C onfusion d enies. F ainting/blackouts d enies. T ingling d enies. T remors d enies. * Medical History: A nemia, Anxiety, Arthritis, Back,Hip,and Knee pain, Covid-19, Depression, Measles, Chicken pox, Leukopenia. * Surgical History: S TL Fusion Right Hand 01/2008. * Hospitalization/Major Diagno stic Procedure: D enies Past Hospitalization. * Family History: M other: alive, diagnosed with Other malignant neoplasm of unspecified site, Family history of arthritis. F ather: , diagnosed with Other malignant neoplasm of unspecified site, Unspecified heart disease, Family history of arthritis. * Social History: T obacco Use: T obacco use other than smoking A re you an other tobacco user? N o Tobacco Control (Standard) T obacco use: N onsmoker A dditional Findings: Tobacco non-user C urrent nonsmoker D rugs/Alcohol: D rugs H ave you used drugs other than those for medical reasons in the past 12 months? N o M iscellaneous: C affeine: yes, 1-2 cups per day. Children: yes. Exercise: no. Marital status: . 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 D rug/Alcohol: A GARCÍA-C (Standard) D id you have a drink containing alcohol in the past year? Y es H ow often did you have a drink containing alcohol in the past year? N ever (0 point) H ow many drinks did you have on a typical day when you were drinking in the past year? 1 or 2 drinks (0 point) H ow often did you have six or more drinks on one occasion in the past year? N ever (0 point) P oints 0 I nterpretation N egative * Medications: T aking Omeprazole , Taking Citalopram Hydrobromide , Taking Tamsulosin HCl , Taking Ibuprofen 800 MG Tablet 1 tablet with food or milk as needed Orally Three times a day , Taking Physical Therapy . . . . 2-3x/week , Medication List reviewed and reconciled with the patient * Allergies: N .K.D.A. Objective: * Vitals: Assessment: Plan: * Treatment: * Images: * The named appointment provid er may or may not be the originator of this progress note, and it is not deemed complete until electronically signed by the appointment provider. Sign off status: Pending * Provider: Cassidy Mora DPM Date: 06/06/2025 Generated for Amanda Tello/Jenni on: 06/09/2025 08:22 AM EDT
--- OUTSIDE RECORDS SUMMARY | 2025-06-09 08:22 | XMS_ITS | Patient Health Record ---
Author Organization [facility] Address [address] [place] [address] Care Team Providers Care Mechanical Engineering Technician Name Role Phone David GAMBLE, Rina Primary Care Provider Darren Joseph Unavailable [phone] Allergies No Known Allergies Reason For Referral [...] Status Risk Notes Problem Irritable bowel syndrome (92857211) Irritable bowel syndrome (K58.9) Active confirmed Problem 158679457 Encounter for screening for malignant neoplasm of colon (Z12.11) Active confirmed Problem Screening for malignant neoplasm of rectum (949898857) Encounter for screening for malignant neoplasm of rectum (Z12.12) Active confirmed Problem Gastroesophageal reflux disease (K21.9) Active confirmed Problem 60057762 Preprocedural examination (Z01.818) Active confirmed Problem 513710557 Family history o f colon cancer (Z80.0) Active confirmed Problem Gastroesophageal reflux disease (874648961) GERD (gastroesophageal reflux disease) (K21.9) Active confirmed Problem Albarado esophagus (046835371) 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 colonoscopy in 03/2016 and 11/2020 GERD-EGD 11/2020 with [facility] and a HH. Biopsies from the [facility]barado's esophagus were negative for dysplasia. Duodenal biopsies were negative for celiac disease Irritable bowel syndrome. Surgical History Surgery Date(Month/Year) STL Fusion right hand 2007
--- NOTE | 2025-06-09 08:28 | A.OFFVIS_ITS ---
Intake Visit Reasons: OV RT shoulder pain Intake Note: Collin is a 59 year old male who presents today for a follow up of his right shoulder Glenohumeral OA & RTC Tendonitis. At his last visit he was given an order for Physical Therapy. No injection History. Patient report that physical therpay did not help, he continues to have ongoing pain and weakness. He would like to discuss his options. Allergies No Known Allergies Allergy (Verified 06/09/25 08:34) Medication List - Last Reconciled 06/09/25 by Gaeb Landers PA-C citalopram 40 mg (2 x 20 mg) PO DAILY 90 days dicyclomine 10 mg PO TID ibuprofen 200 mg PO Q6H PRN omeprazole 20 mg PO DAILY tamsulosin 0.4 mg PO DAILY HPI HPI OV RT shoulder pain: Details: 60-year-old gentleman returns to the office today for a follow-up right shoulder pain. He has done physical therapy and states he has regained some strength however his pain does continues to be a limiting factor with certain activities especially overhead reaching. 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 Pain in foot Iron deficiency anemia Seasonal allergies Benign prostatic hyperplasia Recurrent major depressive disorder, in remission Annual visit for general adult medical examination with abnormal findings Pain and swelling of left wrist COVID-19 vaccination declined Refused influenza vaccine Esophagitis determined by biopsy Hiatal hernia Vitamin D deficiency Anemia GERD (gastroesophageal reflux disease) Impotence Arthritis Acne rosacea Surgical History History of colonoscopy H/O hand surgery Family History Brother Pancreatic cancer Maternal Uncle Leukemia Colon cancer Maternal Uncle Liver cancer Father Heart disease Social History Household Members: Spouse Housing: House Alcohol intake: current Alcohol intake frequency: a few times a week Patient Tobacco Use Status: Former Tobacco user Cigarette Packs Per Day: 1 e-Cigarette/Vaping Use: Never Used Second Hand Smoke Exposure: No service: Yes ([employer]) Current occupational status: employed 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 He does have full range of motion in all planes. Positive Hill. He is able to activate rotator cuff strengthening however he does have accessory muscle use when doing so. Neurovascularly intact. Assessment & Plan Assessment & Plan (1) Tendinitis of right rotator cuff: Code(s): M75.81 - Other shoulder lesions, right shoulder Category: Medical (2) Arthritis of right glenohumeral joint: Code(s): M19.011 - Primary osteoarthritis, right shoulder Category: Medical (3) Partial tear of rotator cuff: Code(s): M75.110 - Incomplete rotator cuff tear or rupture of unspecified shoulder, not specified as traumatic Category: Medical Plan We discussed options today with Dr. Mike izaguirre which includes continued physical therapy, steroid injections and surgical intervention. The patient is not a surgical candidate at this time given his mobility and high functional status. He really does not have pain at night or in a pain that limits his ability to perform activities. We did discuss continuing with his therapy exercises and also the benefit of a glenohumeral joint injection given the amount of arthritis he does have. The patient is in agreement with the injection. An order for a glenohumeral joint injection under fluoroscopy has been placed. I explained to the patient the hospital we will call him to to book this appointment. If symptoms persist or worsen over the next 3-6 months post injection he can contact our office to discuss other options otherwise he will follow up as needed. Orders: Orders FL Guided Asp Inj Major Jt RT Today M16.11 - Unilateral primary osteoarthritis, right hip Coding Level of Care Code Est Pt Level 3 (53042) Complex EM visit Add On G2211 Diagnoses Tendinitis of right rotator cuff M75.81 Arthritis of right glenohumeral joint M19.011 Partial tear of rotator cuff M75.110
== END 2025-06-09 09:52 | disposition home or self-care (01) ==
LOC: HO.HOS 08:20
PROVIDERS: PCP Internal Medicine; Visit Provider Physician Assistant
DX: M75.81 Other shoulder lesions, right shoulder (principal); M19.011 Primary osteoarthritis, right shoulder; M75.112 Incomplete rotator cuff tear or rupture of left shoulder, not specified as traumatic
CPT/HCPCS: 99213

== ENCOUNTER → 2025-06-09 08:19 | Outpatient (BNVA) | payer OTHER, SELFPAY | PROVIDERS: PCP Internal Medicine; Visit Provider Physician Assistant | DX: M19.011 Primary osteoarthritis, right shoulder (principal); M75.81 Other shoulder lesions, right shoulder; M75.111 Incomplete rotator cuff tear or rupture of right shoulder, not specified as traumatic | CPT/HCPCS: 99212 ==

== ENCOUNTER 2025-06-15 15:52 | Outpatient (AMB) | payer OTHER, SELFPAY ==
--- OUTSIDE RECORDS SUMMARY | 2025-06-06 12:00 | XMS_ITS ---
Author Organization [facility] Address [address] [place] [address] Care Team Providers Care Business Office Specialist Name Role Phone David GAMBLE, Rina Lundberg Primary Care Provider Un available Amy Mora Unavailable [phone] Allergies No Known Allergies Medications Medication SIG [...] Negative Encounters Encounter Location Date Provider Diagnosis [facility] [address] [place] [address] 06/06/2025 Amy Mora Plan Of Treatment Next Appt Details Provider Name:Amy Mason Gareth lopez, 06/27/2025 10:15:00 AM, [address] [facility], [facility] [place], [address], Progress Notes * Collin FREITAS JrDOB:[birth year] (60 yo M)Acc No.[id number]:06/06/2025 Progress Notes Patient: Collin GORDILLO Jr Provider: Cassidy Mora DPM :1965 A ge:59 Y S ex:Male Date:06/06/2025 Address:[address] [place], [place] [id number] Pcp:Cece Spencer Subjective: * Chief Complaints: * [...] enies. C ardiovascular: Pacemaker d enies. 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 W PW d enies. C [...] yes. Exercise: no. Marital status: . 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 D rug/Alcohol: A GARCÍA-C (Standard) D [...] Date: 06/06/2025 Generated for Amanda Tello/Jenni on: 06/15/2025 03:54 PM EDT
--- OUTSIDE RECORDS SUMMARY | 2025-06-15 15:54 | XMS_ITS | Patient Health Record ---
Author Organization [facility] Address [address] [place] [address] Care Team Providers Care Trade Marker Name Role Phone David GAMBLE, Rina Primary Care Provider Darren Joseph Unavailable [phone] Allergies No Known Allergies Reason For Referral [...] Status Risk Notes Problem Irritable bowel syndrome (51893243) Irritable bowel syndrome (K58.9) Active confirmed Problem 834690712 Encounter for screening for malignant neoplasm of colon (Z12.11) Active confirmed Problem Screening for malignant neoplasm of rectum (911663680) Encounter for screening for malignant neoplasm of rectum (Z12.12) Active confirmed Problem Gastroesophageal reflux disease (K21.9) Active confirmed Problem 05030122 Preprocedural examination (Z01.818) Active confirmed Problem 387448288 Family history o f colon cancer (Z80.0) Active confirmed Problem Gastroesophageal reflux disease (052760363) GERD (gastroesophageal reflux disease) (K21.9) Active confirmed Problem Albarado esophagus (752217134) 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 colonoscopy in 03/2016 and 11/2020 GERD-EGD 11/2020 with [facility] and a HH. Biopsies from the Albarado's esophagus were negative for dysplasia. Duodenal biopsies were negative for celiac disease Irritable bowel syndrome. Surgical History Surgery Date(Month/Year) STL Fusion right hand 2007
[2025-06-15 15:55] VITALS: BP 112/70; PULSE 85; TEMP 36.7; O2SAT 96
--- NOTE | 2025-06-15 15:55 | MHC.OFFWIV ---
Intake Vital Signs 06/15/25 15:55 Height 5 ft 10 in BP 112/70 Blood Pressure Location Lt brachial Position Sitting Pulse 85 Pulse Source Pulse Oximeter Temp 98.0 F Pulse Oximetry (%) 96 Oxygen Delivery Method Room Air Intake Visit Reasons: EP-rt eye swollen & pain, rt foot burning spot Intake Note: presents with a painful & swollen right eye. Also c/o slow healing wounds on right great toe and second toe after sustaining a burn two weeks ago Patient Tobacco Use Status: Former Tobacco user Allergies No Known Allergies Allergy (Verified 06/15/25 15:55) Do you need a note to return to daycare/school/sports/work: No HPI HPI Comments History of Present Illness Details History - The patient is a 60-year-old male presenting with swelling and pain in the right eye, and concerns about a foot burn. - Eye swelling began last night with no known inciting event, described as painful but not itchy, and worsened by morning. - No fever or vision changes reported, and no known insect bites - does not feel like there is sand or anything in his right eye - Foot burn on 1 and 2 toes occurred a couple of weeks ago, with no signs of infection but described as throbbing at night. - Patient is not diabetic and has been applying an antibiotic gel to the burn. Physical Exam General: Cooperative, healthy appearing, comfortable, no acute distress and well developed Orientation: Patient oriented x3 Limitations: No limitations Head: Normal to inspection Ears: Hearing grossly normal bilaterally Nose: Normal External nose present Face and sinus: Normal facial exam Mouth: normal, moist oral mucosa Eyes: see below Neck: Normal visual inspection and Yes full ROM Respiratory: Normal respiratory effort and able to speak in complete sentences. Skin: no rashes or lesions noted, 0.75cm wound with scab on right 1st toe, 0.25cm wound with scab on right 2nd toe, no drainage, no warmth noted. Neuro: Patient oriented x3 Extremities: moving all extremities normally [facility] Medical History (Updated 06/15/25 @ 16:19 by Ttaiana Tobin PA-C) Albarado's esophagus determined by biopsy Pain in foot Iron deficiency anemia Seasonal allergies Benign prostatic hyperplasia Recurrent major depressive disorder, in remission Annual visit for general adult medical examination with abnormal findings Pain and swelling of left wrist COVID-19 vaccination declined Refused influenza vaccine Esophagitis determined by biopsy Hiatal hernia Vitamin D deficiency Anemia GERD (gastroesophageal reflux disease) Impotence Arthritis Acne rosacea Surgical History History of colonoscopy H/O hand surgery Family History Brother Pancreatic cancer Maternal Uncle Leukemia Colon cancer Maternal Uncle Liver cancer Father Heart disease Social History Household Members: Spouse Housing: House Alcohol intake: current Alcohol intake frequency: a few times a week Patient Tobacco Use Status: Former Tobacco user Cigarette Packs Per Day: 1 e-Cigarette/Vaping Use: Never Used Second Hand Smoke Exposure: No service: Yes ([email or web address]) Current occupational status: employed 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, 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 Cognitive needs: No Hearing needs: No Vision needs: Yes Review of Systems Const All systems reviewed & are unremarkable except as noted in HPI and below Physical Exam Vital Signs: Last Vital Signs Temp 98.0 F 06/15/25 15:55 Pulse 85 06/15/25 15:55 BP 112/70 06/15/25 15:55 Pulse Ox 96 06/15/25 15:55 Oxygen Delivery Method Room Air 06/15/25 15:55 Eyes Alignment and Position: alignment normal and position normal Periorbital: periorbital findings abnormal (as below) right Eyelids: Yes eyelids normal Conjunctivae: conjunctivae normal Sclerae: sclerae normal Pupils: Equal, round and reactive pupils present EOM: EOMs intact bilaterally Eyes/upper lids images:  1. edema with erythema and warmth, otherwise normal Neuro Cranial nerves: Yes Equal, round and reactive pupils present Assessment & Plan Assessment & Plan (1) Periorbital cellulitis of right eye: Code(s): L03.213 - Periorbital cellulitis Plan: Plan Patient was informed and verbally consented to the use of an ambient scribe for clinic note documentation during this visit 1. Periorbital Cellulitis - Initiate treatment with Keflex, 500 mg every six hours for seven days. - Advise patient to monitor for changes in vision or worsening symptoms and seek emergency care if these occur. (2) Burn of toe: Code(s): T25.039A - Burn of unspecified degree of unspecified toe(s) (nail), initial encounter Qualifiers: Encounter type: initial encounter Laterality: right Burn degree: partial thickness (2nd degree) Qualified Code(s): T25.231A - Burn of second degree of right toe(s) (nail), initial encounter Plan: as above Medications: New cephalexin 500 mg PO Q6H 28 caps 0RF Coding Level of Care Code Est Pt Level 4 (20476) Diagnoses Periorbital cellulitis of right eye L03.213 Partial thickness burn of toe of right foot, initial encounter T25.231A Encounter type: initial encounter Laterality: right Burn degree: partial thickness (2nd degree)
== END 2025-06-15 16:27 | disposition home or self-care (01) ==
PROVIDERS: PCP Internal Medicine; Visit Provider Physician Assistant
DX: L03.213 Periorbital cellulitis (principal); T25.231A Burn of second degree of right toe(s) (nail), initial encounter

== ENCOUNTER → 2025-06-15 15:52 | Outpatient (BNVA) | payer OTHER, SELFPAY | PROVIDERS: PCP Internal Medicine; Visit Provider Physician Assistant | DX: L03.213 Periorbital cellulitis (principal); T25.031A Burn of unspecified degree of right toe(s) (nail), initial encounter; X08.8XXA Exposure to other specified smoke, fire and flames, initial encounter; Y93.9 Activity, unspecified; Y92.9 Unspecified place or not applicable; Y99.9 Unspecified external cause status | CPT/HCPCS: 99212 ==

== ENCOUNTER 2025-06-19 12:30 | Outpatient (REF) | payer OTHER, SELFPAY ==
--- OUTSIDE RECORDS SUMMARY | 2025-06-06 12:00 | XMS_ITS ---
Author Organization [facility] Address [address] [place] [address] Care Team Providers Care Child Nurse Name Role Phone David GAMBLE, Rina Lundberg Primary Care Provider Un available Amy Mora Unavailable [phone] Allergies No Known Allergies Medications Medication SIG [...] Negative Encounters Encounter Location Date Provider Diagnosis [facility] [address] [place] [address] 06/06/2025 Amy Mora Plan Of Treatment Next Appt Details Provider Name:Amy Mason Gareth lopez, 06/27/2025 10:15:00 AM, [address] [facility], [facility] [place], [address], Progress Notes * Collin FREITAS JrDOB:[birth year] (60 yo M)Acc No.[id number]:06/06/2025 Progress Notes Patient: Collin GORDILLO Jr Provider: Cassidy Mora DPM :1965 A ge:59 Y S ex:Male Date:06/06/2025 Address:[address] [place], [place] [phone] Pcp:Cece Spencer Subjective: * Chief Complaints: * [...] enies. C ardiovascular: Pacemaker d enies. 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 W PW d enies. C [...] yes. Exercise: no. Marital status: . 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 D rug/Alcohol: A GARCÍA-C (Standard) D [...] Date: 06/06/2025 Generated for Amanda Tello/Jenni on: 06/19/2025 01:19 PM EDT
--- NOTE | ~2025-06-19 | FL_ITS ---
FLUOROSCOPY GUIDED INJECTION RIGHT SHOULDER HISTORY: Right shoulder pain, therapeutic injection. COMPARISON: Right shoulder MRI 12/26/2024 TECHNIQUE: Following full and informed consent, the patient was placed in the supine position on the fluoroscopy table. The right shoulder joint was localized utilizing fluoroscopic guidance. The area was marked, prepped and draped in sterile fashion. 1% Lidocaine was utilized for skin and subcutaneous tissue anesthesia, for an anterolateral approach to the shoulder joint. Following this, a 22-gauge needle was advanced into the shoulder joint space utilizing fluoroscopic guidance. Subsequently approximately 8 mL (of a mixture consisting of 2 mL 1% lidocaine, 80 mg Depo-Medrol, and 5 mL Isovue-300 contrast) was injected into the joint space under direct fluoroscopic visualization. The needle was removed. The patient tolerated the procedure well and there were no immediate complications. FLUOROSCOPY TIME: 7 seconds. DAP = 39.2 uGym2 Total number of fluoroscopic images archived and saved in the patients permanent medical record: 1 FL/FL Guided Asp Inj Major Jt RT IMPRESSION: 1. Successful injection of 80 mg Depo-Medrol into the right shoulder joint. Electronically signed by: Jn Hargrove MD 06/19/2025 02:42 PM EDT
--- OUTSIDE RECORDS SUMMARY | 2025-06-19 13:20 | XMS_ITS | Patient Health Record ---
Author Organization [facility] Address [address] [place] [address] Care Team Providers Care Heating Equipment Repairer Name Role Phone David GAMBLE, Rina Primary Care Provider Darren Joseph Unavailable [phone] Allergies No Known Allergies Reason For Referral [...] Status Risk Notes Problem Irritable bowel syndrome (65089003) Irritable bowel syndrome (K58.9) Active confirmed Problem 980378723 Encounter for screening for malignant neoplasm of colon (Z12.11) Active confirmed Problem Screening for malignant neoplasm of rectum (007929064) Encounter for screening for malignant neoplasm of rectum (Z12.12) Active confirmed Problem Gastroesophageal reflux disease (K21.9) Active confirmed Problem 75641029 Preprocedural examination (Z01.818) Active confirmed Problem 712639055 Family history o f colon cancer (Z80.0) Active confirmed Problem Gastroesophageal reflux disease (885460293) GERD (gastroesophageal reflux disease) (K21.9) Active confirmed Problem Albarado esophagus (221409692) 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 colonoscopy in 03/2016 and 11/2020 GERD-EGD 11/2020 with [facility]. Biopsies from the Albarado's esophagus were negative for dysplasia. Duodenal biopsies were negative for celiac disease Irritable bowel syndrome. Surgical History Surgery Date(Month/Year) [facility] Fusion right hand 2007
[2025-06-19] MEDS: iohexoL 300 MG/ML 50 ML INFUS..BTL INTRAARTIC (13:52)
[2025-06-19] MEDS: Lidocaine HCl 1 % 20 ML VIAL 3 ML SUBCUT (14:46)
== END 2025-06-19 12:31 | disposition home or self-care (01) ==
LOC: HO.XRAY 12:30
PROVIDERS: PCP Internal Medicine; Visit Provider Physician Assistant
DX: M19.011 Primary osteoarthritis, right shoulder (principal); M25.511 Pain in right shoulder
CPT/HCPCS: 20610; 77002; J1010; J2003; Q9967

== ENCOUNTER → 2025-06-19 13:17 | Outpatient (BNV) | payer OTHER, SELFPAY | PROVIDERS: PCP Internal Medicine; Visit Provider Radiology Diagnostic Radiology | DX: M25.512 Pain in left shoulder (principal) | CPT/HCPCS: 20610; 77002 ==

== ENCOUNTER 2025-07-03 15:54 | Outpatient (AMB) | payer OTHER, SELFPAY ==
--- OUTSIDE RECORDS SUMMARY | 2025-07-03 15:57 | XMS_ITS | Patient Health Record ---
Author Organization [facility] Address [address] [place] [address] Care Team Providers Care Central Melt Specialist Name Role Phone David GAMBLE, Rina Primary Care Provider Darren Joseph Unavailable [phone] Allergies No Known Allergies Reason For Referral [...] Status Risk Notes Problem Irritable bowel syndrome (06753364) Irritable bowel syndrome (K58.9) Active confirmed Problem 830882725 Encounter for screening for malignant neoplasm of colon (Z12.11) Active confirmed Problem Screening for malignant neoplasm of rectum (555473187) Encounter for screening for malignant neoplasm of rectum (Z12.12) Active confirmed Problem Gastroesophageal reflux disease (K21.9) Active confirmed Problem 51484136 Preprocedural examination (Z01.818) Active confirmed Problem 727265661 Family history o f colon cancer (Z80.0) Active confirmed Problem Gastroesophageal reflux disease (377158069) GERD (gastroesophageal reflux disease) (K21.9) Active confirmed Problem Albarado esophagus (505673777) 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 colonoscopy in 03/2016 and 11/2020 GERD-EGD 11/2020 with [facility] a [facility]. Biopsies from the Albarado's esophagus were negative for dysplasia. Duodenal biopsies were negative for celiac disease Irritable bowel syndrome. Surgical History Surgery Date(Month/Year) ST[facility] Fusion right hand 2007
[2025-07-03 16:05] VITALS: BP 100/60; PULSE 62; TEMP 36.7; O2SAT 98; BMI 29.7
--- NOTE | 2025-07-03 16:05 | AM.OFFWIN_ITS ---
Intake Vital Signs 07/03/25 16:05 Height 5 ft 11 in Weight 213 lb 2 oz BMI 29.7 BP 100/60 Blood Pressure Location Lt brachial Position Sitting Pulse 62 Pulse Source Pulse Oximeter Temp 98.0 F Temp Source Oral Pulse Oximetry (%) 98 Oxygen Delivery Method Room Air Intake Visit Reasons: EP-rt calf pain & swollen Patient Tobacco Use Status: Former Tobacco user Allergies No Known Allergies Allergy (Verified 07/03/25 16:10) Do you need a note to return to daycare/school/sports/work: No HPI HPI Comments History of Present Illness Details History of Present Illness - The patient is a 60-year-old male pres enting with a suspected Achilles tendon rupture following a lifting injury. - The injury occurred while lifting an 8 50-pound motor, during which the patient heard a pop in the calf. - The patient reports significant swelli ng and difficulty walking, with the incident occurring night. - Bruising is present in the calf area, and the patient describes the pain as severe. - The patient attempted rest over the we ekend, but symptoms persisted. - There is no reported bone injury, and the patient denies any bone pain. - He denies numbness, tingling, foot shreyas n, ankle pain, or knee pain. Physical Exam General: Cooperative, healthy appearing, comfortable, no acute distress and well developed Respiratory: Normal respiratory effort and able to speak in complete sentences. Clear to auscultation bilaterally Cardiovascular: Regular rate and rhythm. Normal S1 and S2 Skin: Bruising noted in a couple of places on the leg Neuro: Sensation is intact. Extremities: Right lower leg posteriorly is bruised. Swelling noted to the right lower leg. TTP of the right posterior lower leg. Positive Mckeon's test on the right. Unable to plantar flex foot on the right. Ambulates with a limp. Patient was informed and verbally consented to the use of an ambient scribe for clinic note documentation during this visit. [facility] Medical History (Updated 07/03/25 @ 09:36 by Karina aZidi MD) Albarado's esophagus determined by biopsy Pain in foot Iron deficiency anemia Seasonal allergies Benign prostatic hyperplasia Recurrent major depressive disorder, in remission Annual visit for general adult medical examination with abnormal findings Pain and swelling of left wrist COVID-19 vaccination declined Refused influenza vaccine Esophagitis determined by biopsy Hiatal hernia Vitamin D deficiency Anemia GERD (gastroesophageal reflux disease) Impotence Arthritis Acne rosacea Surgical History History of colonoscopy H/O hand surgery Family History (Updated 07/03/25 @ 09:37 by Karina Ziadi MD) Brother Pancreatic cancer Maternal Uncle Colon cancer Leukemia Maternal Uncle Liver cancer Father Heart disease Mother Multiple myeloma Social History Household Members: Spouse Housing: House Alcohol intake: current Alcohol intake frequency: a few times a week Patient Tobacco Use Status: Former Tobacco user Cigarette Packs Per Day: 1 e-Cigarette/Vaping Use: Never Used Second Hand Smoke Exposure: No service: Yes ([employer]) Current occupational status: employed 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, 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 Cognitive needs: No Hearing needs: No Vision needs: Yes Review of Systems Const All systems reviewed & are unremarkable except as noted in HPI and below Physical Exam Vital Signs: Last Vital Signs Temp 98.0 F 07/03/25 16:05 Pulse 62 07/03/25 16:05 BP 100/60 07/03/25 16:05 Pulse Ox 98 07/03/25 16:05 Oxygen Delivery Method Room Air 07/03/25 16:05 BMI result Body Mass Index 29.7 Assessment & Plan Assessment & Plan (1) Right calf pain: Code(s): M79.661 - Pain in right lower leg Plan Most likely Achilles tendon rupture unable to get an u/s in the office today Plan - will order u/s of the right leg- suggested to go to the ER but he would rather an appt - wear boot - rest, ice and elevation to the leg - tylenol or motrin as needed for pain - follow up with PCP - will refer him to ortho Orders: Orders US Extremity Nonvas Limited RT Today M79.604 - Pain in right leg Referrals Orthopedics Referral M79.661 - Pain in right lower leg Coding Level of Care Code Est Pt Level 4 (09759) Diagnoses Right calf pain M79.661
== END 2025-07-03 16:43 | disposition home or self-care (01) ==
PROVIDERS: PCP Internal Medicine; Visit Provider Physician Assistant Medical
DX: M79.661 Pain in right lower leg (principal)

== ENCOUNTER → 2025-07-03 15:54 | Outpatient (BNVA) | payer OTHER, SELFPAY | PROVIDERS: PCP Internal Medicine; Visit Provider Physician Assistant Medical | DX: M79.661 Pain in right lower leg (principal); X50.0XXA Overexertion from strenuous movement or load, initial encounter; Y93.9 Activity, unspecified; Y92.9 Unspecified place or not applicable; Y99.9 Unspecified external cause status | CPT/HCPCS: 99212 ==

== ENCOUNTER 2025-07-04 10:49 | Outpatient (REF) | payer OTHER, SELFPAY ==
--- OUTSIDE RECORDS SUMMARY | 2025-06-06 12:00 | XMS_ITS ---
Author Organization [facility] Address [address] [place] [address] Care Team Providers Care Metal Punch Press Operator Name Role Phone David GAMBLE, Rina Lundberg Primary Care Provider Un available Amy Mora Unavailable [phone] Allergies No Known Allergies Medications Medication SIG [...] Negative Encounters Encounter Location Date Provider Diagnosis [facility] [address] [place] [address] 06/06/2025 Amy Mora Plan Of Treatment No Information Progress Notes * Collin FREITAS JrDOB:[birth year] (60 yo M)Acc No.[id number]:06/06/2025 Progress Notes Patient: Collin GORDILLO Jr Provider: Cassidy Mora DPM :1965 A ge:59 Y S ex:Male Date:06/06/2025 Address:[address] [place], [place] [phone] Pcp:Cece Spencer Subjective: * Chief Complaints: * [...] enies. C ardiovascular: Pacemaker d enies. 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 W PW d enies. C [...] yes. Exercise: no. Marital status: . Occupation: [employer]. D rug/Alcohol: A GARCÍA-C (Standard) D [...] 0 06/06/2025 Generated for Amanda morris/Isamar/Jenni on: 07/04/2025 11:56 AM EDT
--- NOTE | ~2025-07-04 | US_ITS ---
EXAMINATION: ULTRASOUND RIGHT LOWER EXTREMITY, LIMITED CLINICAL INFORMATION: Pain in the Achilles tendon TECHNIQUE: Limited real-time ultrasound using a linear transducer with grayscale and color Doppler technique and related the right Achilles tendon. COMPARISON: None FINDINGS: No gross fluid collections or masses. The included Achilles tendon appears intact without intrasubstance abnormality. No gross disruption. US/US Extremity Nonvas Limited RT IMPRESSION: Negative ultrasound of the right Achilles tendon. No gross mass and or fluid collections. Electronically signed by: Stephan Kinney MD 07/04/2025 12:28 PM EDT
--- OUTSIDE RECORDS SUMMARY | 2025-07-04 11:57 | XMS_ITS | Patient Health Record ---
Author Organization [facility] Address [address] [place] [address] Care Team Providers Care Ship Carpenter Name Role Phone David GAMBLE, Rina Primary Care Provider Darren Joseph Unavailable [phone] Allergies No Known Allergies Reason For Referral [...] Status Risk Notes Problem Irritable bowel syndrome (97309876) Irritable bowel syndrome (K58.9) Active confirmed Problem 404456827 Encounter for screening for malignant neoplasm of colon (Z12.11) Active confirmed Problem Screening for malignant neoplasm of rectum (268058127) Encounter for screening for malignant neoplasm of rectum (Z12.12) Active confirmed Problem Gastroesophageal reflux disease (K21.9) Active confirmed Problem 75626035 Preprocedural examination (Z01.818) Active confirmed Problem 230669930 Family history o f colon cancer (Z80.0) Active confirmed Problem Gastroesophageal reflux disease (206878028) GERD (gastroesophageal reflux disease) (K21.9) Active confirmed Problem Albarado esophagus (248802285) 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 colonoscopy in 03/2016 and 11/2020 GERD-EGD 11/2020 with [facility] a [facility]. Biopsies from the Albarado's esophagus were negative for dysplasia. Duodenal biopsies were negative for celiac disease Irritable bowel syndrome. Surgical History Surgery Date(Month/Year) STL Fusion right hand 2007
== END 2025-07-04 10:50 | disposition home or self-care (01) ==
LOC: HO.US 10:49
PROVIDERS: Visit Provider Physician Assistant Medical
DX: M79.604 Pain in right leg (principal)
CPT/HCPCS: 76882

== ENCOUNTER → 2025-07-04 10:51 | Outpatient (BNV) | payer OTHER, SELFPAY | PROVIDERS: Visit Provider Radiology Diagnostic Radiology | DX: M76.61 Achilles tendinitis, right leg (principal) | CPT/HCPCS: 76882 ==

== ENCOUNTER 2025-07-07 08:15 | Outpatient (AMB) | payer OTHER, SELFPAY ==
--- OUTSIDE RECORDS SUMMARY | 2025-06-06 12:00 | XMS_ITS ---
Author Organization [facility] Address [address] [place] [address] Care Team Providers Care Filtration Plant Mechanic Name Role Phone David GAMBLE, Rina Lundberg Primary Care Provider Un available Amy Mora Unavailable [phone] Allergies No Known Allergies Medications Medication SIG [...] Negative Encounters Encounter Location Date Provider Diagnosis [facility] [address] [place] [address] 06/06/2025 Amy Mora Plan Of Treatment No Information Progress Notes * Collin FREITAS JrDOB:[birth year] (60 yo M)Acc No.[id number]:06/06/2025 Progress Notes Patient: Collin GORDILLO Jr Provider: Cassidy Mora DPM :1965 A ge:59 Y S ex:Male Date:06/06/2025 Address:[address] [place], [place] [phone] Pcp:Cece Spencer Subjective: * Chief Complaints: * [...] enies. C ardiovascular: Pacemaker d enies. 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 W PW d enies. C [...] yes. Exercise: no. Marital status: . Occupation: [employer]. D rug/Alcohol: A GARCÍA-C (Standard) D [...] 0 06/06/2025 Generated for Amanda morris/Isamar/Jenni on: 07/07/2025 08:18 AM EDT
--- OUTSIDE RECORDS SUMMARY | 2025-07-07 08:18 | XMS_ITS | Patient Health Record ---
Author Organization [facility] Address [address] [place] [address] Care Team Providers Care Boring Machine Feeder Name Role Phone David GAMBLE, Rina Primary Care Provider Darren Joseph Unavailable [phone] Allergies No Known Allergies Reason For Referral [...] Status Risk Notes Problem Irritable bowel syndrome (59557953) Irritable bowel syndrome (K58.9) Active confirmed Problem 022301919 Encounter for screening for malignant neoplasm of colon (Z12.11) Active confirmed Problem Screening for malignant neoplasm of rectum (632428521) Encounter for screening for malignant neoplasm of rectum (Z12.12) Active confirmed Problem Gastroesophageal reflux disease (K21.9) Active confirmed Problem 51221515 Preprocedural examination (Z01.818) Active confirmed Problem 151295084 Family history o f colon cancer (Z80.0) Active confirmed Problem Gastroesophageal reflux disease (095139249) GERD (gastroesophageal reflux disease) (K21.9) Active confirmed Problem Albarado esophagus (637125912) 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 colonoscopy in 03/2016 and 11/2020 GERD-EGD 11/2020 with [facility] and a HH. Biopsies from the Albarado's esophagus were negative for dysplasia. Duodenal biopsies were negative for celiac disease Irritable bowel syndrome. Surgical History Surgery Date(Month/Year) STL Fusion right hand 2007
--- NOTE | 2025-07-07 08:23 | MHC.OFFVIS ---
Vital Signs 07/07/25 08:24 Height 5 ft 11 in Weight 213 lb BMI 29.7 Intake Visit Reasons: New prob Pain in right lower leg Intake Note: Collin is a 60 year old male who presents today as an established patient, new problem visit to evaluate right lower leg injury, DOI 06/29/25. Patient reports that he was moving his motor cycle when he lost his balance and dropped his bike, he pushed his bike back up felt a pop in his calf area. He rested and iced his leg the next 2 days, upon returning to work his pain was intolerable and presented to [facility] urgent care. He has a US done, states being told his achilles is attached. He was placed in walking boot however this increased his pain and discontinued use of boot. Today he complains of extreme pain in his calf that travels up his leg, swelling and bruising, as well as sharp paind with climbing stairs. Allergies No Known Allergies Allergy (Verified 07/07/25 08:52) Medication List - Last Reconciled 07/07/25 by Gabe Landers PA-C citalopram 40 mg (2 x 20 mg) PO DAILY 90 days dicyclomine 10 mg PO TID PRN ibuprofen 200 mg PO Q6H PRN omeprazole 20 mg PO DAILY tamsulosin 0.4 mg PO DAILY HPI HPI New prob Pain in right lower leg: Details: 60 yo male presents to the office today for an injury he sustained to the right calf on 06/29/25. He states he was moving his motorcycle when it went to fall over and he tried to steady it and when he went to put his foot down all the weight when on his foot and he push off and felt a pop in the calf region. He complains of pain all the way down the leg and pain with plantar flexion and dorsiflexion. He was seen at the urgent care where he was given a boot and referred to our office for ortho eval. He states the boot causes more discomfort. [facility] Medical History (Updated 07/07/25 @ 09:11 by Gabe Landers PA-C) Albarado's esophagus determined by biopsy Pain in foot Iron deficiency anemia Seasonal allergies Benign prostatic hyperplasia Recurrent major depressive disorder, in remission Annual visit for general adult medical examination with abnormal findings Pain and swelling of left wrist COVID-19 vaccination declined Refused influenza vaccine Esophagitis determined by biopsy Hiatal hernia Vitamin D deficiency Anemia GERD (gastroesophageal reflux disease) Impotence Arthritis Acne rosacea Surgical History History of colonoscopy H/O hand surgery Family History (Updated 07/03/25 @ 09:37 by Karina Zaidi MD) Brother Pancreatic cancer Maternal Uncle Colon cancer Leukemia Maternal Uncle Liver cancer Father Heart disease Mother Multiple myeloma Social History Household Members: Spouse Housing: House Alcohol intake: current Alcohol intake frequency: a few times a week Patient Tobacco Use Status: Former Tobacco user Cigarette Packs Per Day: 1 e-Cigarette/Vaping Use: Never Used Second Hand Smoke Exposure: No service: Yes ([employer]) Current occupational status: employed 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 No palpable defect over the achilles tendon, negative thompsons. He is able to dorsiflex but has weakness with planta flexion. NVI. Assessment & Plan Assessment & Plan (1) Strain of right gastrocnemius muscle: Code(s): S86.111A - Strain of other muscle(s) and tendon(s) of posterior muscle group at lower leg level, right leg, initial encounter Category: Medical Plan: Discussed with the patient the extent of his injury and based off his clinical exam the Achilles is intact. He will continue with the boot that he received from urgent care. I did give him to wedges to placed in the boot to help offset the load on the gastroc and Achilles tendon. This will help to relieve discomfort with weight-bearing. He should avoid any type of impact or push-off activities. He will wear the boot with ambulation at all times. I also placed an order for physical therapy and gave him the contact information to make an appointment. He will work on range of motion, gentle stretching and progressive strengthening exercises. He can remove a wedge each week until he is in neutral position. He will remain out of work until follow up in 6 weeks sooner if needed. Orders: Orders PT Evaluation and Treatment Today S86.111A - Strain of other muscle(s) and tendon(s) of posterior muscle group at lower leg level, right leg, initial encounter Coding Level of Care Code Est Pt Level 3 (84730) Complex EM visit Add On G2211 Diagnoses Strain of right gastrocnemius muscle S86.111A
[2025-07-07 08:24] VITALS: BMI 29.7
== END 2025-07-07 09:21 | disposition home or self-care (01) ==
LOC: HO.HOS 08:15
PROVIDERS: Visit Provider Physician Assistant
DX: S86.111A Strain of other muscle(s) and tendon(s) of posterior muscle group at lower leg level, right leg, initial encounter (principal)
CPT/HCPCS: 99213

== ENCOUNTER → 2025-07-07 08:15 | Outpatient (BNVA) | payer OTHER, SELFPAY | PROVIDERS: Visit Provider Physician Assistant | DX: M79.661 Pain in right lower leg (principal); S86.111A Strain of other muscle(s) and tendon(s) of posterior muscle group at lower leg level, right leg, initial encounter | CPT/HCPCS: 99212 ==

== ENCOUNTER 2025-08-16 07:49 | Outpatient (AMB) | payer OTHER, SELFPAY ==
--- OUTSIDE RECORDS SUMMARY | 2024-05-23 07:10 | XMS_ITS ---
Author Organization [facility] Address 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 Name Role Phone David GAMBLE, Rina Primary Care Provider Darren Joseph [phone] REASON FOR VISIT barretts esophagus, gerd Problems Problem Type SNOMED Code ICD Code Onset Dates Problem Status W/U Status Risk Notes Problem Gastroesophageal reflux disease (064268108) Gastroesophageal reflux disease (K21.9) Active confirmed Encounters Encounter Location Date Provider Diagnosis [facility] Outpatient [address] [place] [id number] 05/23/2024 Darren Awan Hiatal hernia K44.9 ; Gastroesophageal reflux disease K21.9 and 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 Pcp:Rina Hernandez MD Subjective: * Chief Complaints: * 1 . Barretts esophagus, gerd. * Medical History: Objective: * Vitals: Assessment: * Assessment: 1. H iatal hernia - K44.9 (Primary) 2 . G astroesophageal reflux disease - K21.9 3 . B arrett esophagus - K22.70 Plan: * Treatment: * Procedure Codes: 4 3239 UPPER GI ENDOSCOPY, BIOPSY * * The named appointment provid er may or may not be the originator of this progress note, and it is not deemed complete until electronically signed by the appointment provider. Sign off status: Pending * Provider: Rafat Awan MD Date: 0 05/23/2024 Generated for Amanda morris/Isamar/Lindenitting on: 0 08/16/2025 07:52 AM EDT
--- OUTSIDE RECORDS SUMMARY | 2025-06-06 12:00 | XMS_ITS ---
Author Organization [facility] Address [address] [place] [address] Care Team Providers Care Fisheries Diver Name Role Phone David GAMBLE, Rina Lundberg Primary Care Provider Un available Amy Mora Unavailable [phone] Allergies No Known Allergies Medications Medication SIG [...] Negative Encounters Encounter Location Date Provider Diagnosis [facility] [address] [place] [address] 06/06/2025 Amy Mroa Plan Of Treatment No Information Progress Notes * Collin FREITAS JrDOB:[birth year] (60 yo M)Acc No.[id number]:06/06/2025 Progress Notes Patient: Collin GORDILLO Jr Provider: Cassidy Mora DPM :1965 A ge:59 Y S ex:Male Date:06/06/2025 Address:[address] [place], [place] [phone] Pcp:Cece Spencer Subjective: * Chief Complaints: * [...] enies. C ardiovascular: Pacemaker d enies. 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 W PW d enies. C [...] yes. Exercise: no. Marital status: . 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 D rug/Alcohol: A GARCÍA-C (Standard) D [...] 0 06/06/2025 Generated for Amanda morris/Isamar/Jenni on: 08/16/2025 07:51 AM EDT
--- OUTSIDE RECORDS SUMMARY | 2025-06-27 06:15 | XMS_ITS ---
Author Organization [facility] Address [address] [place] [address] Care Team Providers Care Lockstitch Topstitcher Name Role Phone David GAMBLE, Rina Lundberg Primary Care Provider Un available Amy Mora [phone] Encounters Encounter Location Date Provider Diagnosis [facility] [address] [place] [address] 06/27/2025 Amy Mora Plan Of Treatment No Information Progress Notes * Collin FREITAS JrDOB:[birth year] (60 yo M)Acc No.[id number]:06/27/2025 Progress Notes Patient: Collin GORDILLO Rafat Provider: Cassidy Mora DPM :1965 A ge:60 Y S ex:Male Date:06/27/2025 Address:[address] [place], [place] [id number] Pcp:Cece Spencer Subjective: * Chief Complaints: * * Medical History: Objective: * Vitals: Assessment: Plan: * Treatment: * Images: * The named appointment provid er may or may not be the originator of this progress note, and it is not deemed complete until electronically signed by the appointment provider. Sign off status: Pending * Provider: Cassidy Mora DPM Date: 06/27/2025 Generated for Printi alexandra/Faconcepcióng/eTransmitting on: 08/16/2025 07:52 AM EDT
--- OUTSIDE RECORDS SUMMARY | 2025-08-16 07:52 | XMS_ITS | Patient Health Record ---
Author Organization [facility] Address [address] [place] [address] Care Team Providers Care Communications Tower Technician Name Role Phone David GAMBLE, Rina Primary Care Provider Darren Joseph Unavailable [phone] Allergies No Known Allergies Reason For Referral [...] Status Risk Notes Problem Irritable bowel syndrome (92440335) Irritable bowel syndrome (K58.9) Active confirmed Problem 057582527 Encounter for screening for malignant neoplasm of colon (Z12.11) Active confirmed Problem Screening for malignant neoplasm of rectum (620354042) Encounter for screening for malignant neoplasm of rectum (Z12.12) Active confirmed Problem Gastroesophageal reflux disease (069043458) Gastroesophageal reflux disease (K21.9) Active confirmed Problem 92586530 Preprocedural examination (Z01.818) Active confirmed Problem 883388541 Family history o f colon cancer (Z80.0) Active confirmed Problem Gastroesophageal reflux disease (462010151) GERD (gastroesophageal reflux disease) (K21.9) Active confirmed Problem Albarado esophagus (218658045) 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 colonoscopy in 03/2016 and 11/2020 GERD-EGD 11/2020 with [facility] and a HH. Biopsies from the Albarado's esophagus were negative for dysplasia. Duodenal biopsies were negative for celiac disease Irritable bowel syndrome. Surgical History Surgery Date(Month/Year) STL Fusion right hand 2007
--- OUTSIDE RECORDS SUMMARY | 2025-08-16 07:52 | XMS_ITS | Patient Health Record ---
Author Organization [facility] [place] Address [address] [place] [address] Care Team Providers Care Line Service Person Name Role Phone David GAMBLE, Rina Lundberg Primary Care Provider Un available Amy Mora Unavailable [phone] Allergies No Known Allergies Reason For Referral [...] Provider Speciality Internal M edicine [facility]erred Provider Amy Mora Referred Address [address] [facility],[place], [place],[address], Referred Provider Specialty Podiatry Referral Priority Routine [...] Status W/U Status Risk Notes Problem Plantar fascial fibromatosis (67467807) Plantar fasciitis, bilateral (M72.2) Active confirmed Vital Signs Blood pressure diastolic 80 mm Hg 04/19/2025 Height 0wh17is in 04/19/2025 Blood pressure systolic 120 mm Hg 04/19/2025 Weight 200 lbs 04/19/2025 BMI 28.69 kg/m2 04/19/2025 Encounters Encounter Location Date Provider Diagnosis [address] [address] 02/08/2025 Amy Mora Pain in right foot M79.671 ; Plantar fasciitis, bilateral M72.2 ; Other myositis of right foot M60.871 ; Bursitis of right foot M77.51 ; Pain in left foot M79.672 ; Other myositis of left foot M60.872 and Bursitis of left foot M77.[address] [address] 04/19/2025 Amy Mora Plantar fasciitis, bilateral M72.2 ; Pain in left foot M79.672 ; Other myositis of left foot M60.872 and Bursitis of left foot M77.[address] [address] 01/16/2025 Amy Mora [address] [address] 02/08/2025 Amy Mora [facility] [address] [place] [address] 02/08/2025 Amy Perica [facility] [address] [place] [address] 06/06/2025 Amy Servina [facility] [address] [place] [address] 06/07/2025 [facility] [place] [address] [place] [address] 06/26/2025 Amy Mora Assessments Encounter Date Diagnosis (ICD [...] X ray : Foot, right 3V 02/08/2025 Insurance Providers Payer Name Payer Address Payer Phone Subscriber Number Group Number Insured Name Patient Relationship to Insured Coverage Start Date Coverage End Date [facility] Plan [address] [facility] [place] [id number] [phone] [id number] Jonny Collin Self - patient is the insured Medical (General) History Medical History History ICD Code Anemia Anxiety Arthritis Back,Hip,and Knee pain covid-19 Depression Measles Chicken pox Leukopenia Surgical History Surgery Date(Month/Year) STL Fusion Right Hand 01/2008
[2025-08-16 07:54] VITALS: BP 92/64; PULSE 66; RESP 15; TEMP 36.3; O2SAT 97; BMI 30.5
--- NOTE | 2025-08-16 07:54 | AM.OFFWIN_ITS ---
Intake Vital Signs 08/16/25 07:54 Height 5 ft 11 in Weight 219 lb BMI 30.5 BP 92/64 Blood Pressure Location Lt brachial Position Sitting Respiration 15 Pulse 66 Pulse Source Pulse Oximeter Temp 97.3 F Temp Source Oral Pulse Oximetry (%) 97 Oxygen Delivery Method Room Air Intake Visit Reasons: ep right eye very blurry vision had blood in it Intake Note: Pt is here today c/o Rt eye blurry vision has blood shot since Thursday Patient Tobacco Use Status: Former Tobacco user Allergies No Known Allergies Allergy (Verified 08/16/25 07:59) HPI HPI Comments History of Present Illness Details History of Present Illness - The patient is a 60-year-old male pres enting with blood in his right eye. - The patient noticed blood in the eye u patria waking on 3-4 days ago, with no recollection of any inciting event. - He denies any pain in the eye but repo rted slight blurriness at the end of the day but now has no blurry vision. - There were no significant vision saenz es noted. - The patient is not on any blood thinne rs and has a normal blood pressure reading of 92/64 mmHg today.. Physical Exam General: Cooperative, healthy appearing, comfortable, no acute distress and well developed Orientation: Patient oriented x3 Limitations: No limitations Head: Normal to inspection Ears: Hearing grossly normal bilaterally Nose: Normal External nose present Face and sinus: Normal facial exam Eyes: Subconjunctival hemorrhage right medial eye, appearance otherwise normal, both eyes and all related structures Neck: Normal visual inspection and Yes full ROM Respiratory: Normal respiratory effort and able to speak in complete sentences. Skin: No rashes or lesions noted Neuro: Patient oriented x3 Extremities: Normal to inspection Review of Systems - Ophthalmologic: Reports slight blurrin ess at the end of the day, denies pain or significant vision changes. All systems reviewed and are unremarkable except as noted in HPI [facility] Medical History (Updated 08/16/25 @ 08:09 by Tatiana Tobin PA-C) Albarado's esophagus determined by biopsy Pain in foot Iron deficiency anemia Seasonal allergies Benign prostatic hyperplasia Recurrent major depressive disorder, in remission Annual visit for general adult medical examination with abnormal findings Pain and swelling of left wrist COVID-19 vaccination declined Refused influenza vaccine Esophagitis determined by biopsy Hiatal hernia Vitamin D deficiency Anemia GERD (gastroesophageal reflux disease) Impotence Arthritis Acne rosacea Surgical History History of colonoscopy H/O hand surgery Family History (Updated 07/03/25 @ 09:37 by Karina Zaidi MD) Brother Pancreatic cancer Maternal Uncle Colon cancer Leukemia Maternal Uncle Liver cancer Father Heart disease Mother Multiple myeloma Social History Household Members: Spouse Housing: House Alcohol intake: current Alcohol intake frequency: a few times a week Patient Tobacco Use Status: Former Tobacco user Cigarette Packs Per Day: 1 e-Cigarette/Vaping Use: Never Used Second Hand Smoke Exposure: No service: Yes ([employer]) Current occupational status: employed 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 Subconjunctival Hemorrhage - The subconjunctival hemorrhage is expected to resolve on its own within two weeks or more. - The patient was advised to monitor for any vision changes or pain and to contact an bridal sales consultant if these symptoms occur. - In case of emergency or if symptoms worsen, the patient should visit an emergency room with ophthalmology services available. Coding Level of Care Code Est Pt Level 3 (66594) Diagnoses Subconjunctival hemorrhage of right eye H11.31
== END 2025-08-16 08:10 | disposition home or self-care (01) ==
PROVIDERS: PCP Internal Medicine; Visit Provider Physician Assistant
DX: H11.31 Conjunctival hemorrhage, right eye (principal)

== ENCOUNTER → 2025-08-16 07:49 | Outpatient (BNVA) | payer OTHER, SELFPAY | PROVIDERS: PCP Internal Medicine; Visit Provider Physician Assistant | DX: H11.31 Conjunctival hemorrhage, right eye (principal) | CPT/HCPCS: 99212 ==

== ENCOUNTER 2025-08-18 11:28 | Outpatient (AMB) | payer OTHER, SELFPAY ==
--- OUTSIDE RECORDS SUMMARY | 2024-05-23 07:10 | XMS_ITS ---
Author Organization [facility] Address [address] [place] [id number] Care Team Providers Care Route Contractor Name Role Phone David GAMBLE, Rina Primary Care Provider Darren Joseph [phone] REASON FOR VISIT barretts esophagus, gerd Problems Problem Type SNOMED Code ICD Code Onset Dates Problem Status W/U Status Risk Notes Problem Gastroesophageal reflux disease (184971195) Gastroesophageal reflux disease (K21.9) Active confirmed Encounters Encounter Location Date Provider Diagnosis [facility] Outpatient [address] [place] [id number] 05/23/2024 Darren Awan Hiatal hernia K44.9 ; Gastroesophageal reflux disease K21.9 and 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 Assessments Encounter Date Diagnosis (ICD Code) Assessment Notes Treatment Notes Treatment Clinical Notes Section Notes 05/23/2024 Hiatal hernia (ICD-10 - K44.9) 05/23/2024 Gastroesophageal reflux disease (ICD-10 - K21.9) 05/23/2024 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
--- OUTSIDE RECORDS SUMMARY | 2025-06-06 12:00 | XMS_ITS ---
Author Organization [facility] Address [address] [place] [address] Care Team Providers Care Scallop Shucker Name Role Phone David GAMBLE, Rina Lundberg Primary Care Provider Un available Amy Mora Unavailable [phone] Allergies No Known Allergies Medications Medication SIG [...] Negative Encounters Encounter Location Date Provider Diagnosis [facility] [address] [place] [address] 06/06/2025 Amy Mora Plan Of Treatment No Information Progress Notes * Collin FREITAS JrDOB:[birth year] (60 yo M)Acc No.[id number]:06/06/2025 Progress Notes Patient: Collin GORDILLO Jr Provider: Cassidy Mora DPM :1965 A ge:59 Y S ex:Male Date:06/06/2025 Address:[address] [place], [place] [phone] Pcp:Cece Spencer Subjective: * Chief Complaints: * [...] enies. C ardiovascular: Pacemaker d enies. 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 W PW d enies. C [...] yes. Exercise: no. Marital status: . 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 D rug/Alcohol: A GARCÍA-C (Standard) D [...] Pending * Provider: Cassidy Mora DPM Date: 0 06/06/2025 Generated for Amanda morris/Isamar/Jenni on: 08/18/2025 01:25 PM EDT
--- OUTSIDE RECORDS SUMMARY | 2025-06-27 06:15 | XMS_ITS ---
Author Organization [facility] Address [address] [place] [address] Care Team Providers Care Welding Pantograph Operator Name Role Phone David GAMBLE, Rina Lundberg Primary Care Provider Un available Amy Mora [phone] Encounters Encounter Location Date Provider Diagnosis [facility] [address] [place] [address] 06/27/2025 Amy Mora Plan Of Treatment No Information Progress Notes * Collin FREITAS JrDOB:[birth year] (60 yo M)Acc No.[id number]:06/27/2025 Progress Notes Patient: Collin GORDILLO Rafat Provider: Cassidy Mora DPM :1965 A ge:60 Y S ex:Male Date:06/27/2025 Address:[address] [place], [place] [id number] Pcp:Cece Spencer Subjective: * Chief Complaints: * * Medical History: Objective: * Vitals: Assessment: Plan: * Treatment: * Images: * The named appointment provid er may or may not be the originator of this progress note, and it is not deemed complete until electronically signed by the appointment provider. Sign off status: Pending * Provider: Cassidy Mora DPM Date: 06/27/2025 Generated for Nikkii alexandra/Isamar/eTransmitting on: 08/18/2025 01:25 PM EDT
--- NOTE | 2025-08-18 11:35 | MHC.OFFVIS ---
Vital Signs 08/18/25 11:41 Height 5 ft 11 in Weight 219 lb BMI 30.5 Intake Visit Reasons: OV- Right calf pain Intake Note: Collin is a 60 year old man who presents today for a follow up visit for his strain of right gastrocnemius muscle, DOI:06/29/25. At his last visit he was advised to continue use of boot with wedges that was provided in office, he may remove one wedge each week. He was referred to physical therapy and he will remain of work until his follow up in 6 weeks. Today patient reports that he is doing well, he continues to work with therapy. He has discontinued use of boot. Allergies No Known Allergies Allergy (Verified 08/18/25 11:41) HPI HPI OV- Right calf pain: Details: 60-year-old gentleman returns to the office today for a follow-up right calf strain date of injury 06/29/2025. The patient has discontinued his boot and has been working with physical therapy and has significant improvement. He denies pain but has some tightness otherwise he is doing well. [facility] Medical History (Updated 08/16/25 @ 08:09 by Tatiana Tobin PA-C) Albarado's esophagus determined by biopsy Pain in foot Iron deficiency anemia Seasonal allergies Benign prostatic hyperplasia Recurrent major depressive disorder, in remission Annual visit for general adult medical examination with abnormal findings Pain and swelling of left wrist COVID-19 vaccination declined Refused influenza vaccine Esophagitis determined by biopsy Hiatal hernia Vitamin D deficiency Anemia GERD (gastroesophageal reflux disease) Impotence Arthritis Acne rosacea Surgical History History of colonoscopy H/O hand surgery Family History (Updated 07/03/25 @ 09:37 by Karina Zaidi MD) Brother Pancreatic cancer Maternal Uncle Colon cancer Leukemia Maternal Uncle Liver cancer Father Heart disease Mother Multiple myeloma Social History Household Members: Spouse Housing: House Alcohol intake: current Alcohol intake frequency: a few times a week Patient Tobacco Use Status: Former Tobacco user Cigarette Packs Per Day: 1 e-Cigarette/Vaping Use: Never Used Second Hand Smoke Exposure: No service: Yes ([employer]) Current occupational status: employed 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 He is able to dorsiflex and plantar flex without pain. Neurovascularly intact. Assessment & Plan Assessment & Plan (1) Strain of right gastrocnemius muscle: Code(s): S86.111A - Strain of other muscle(s) and tendon(s) of posterior muscle group at lower leg level, right leg, initial encounter Category: Medical Plan: Patient will continue with activities as tolerated. I encouraged him to complete physical therapy so he can ensure full strength. There is any questions or concerns going forward he will contact our office otherwise he can follow up as needed. Coding Level of Care Code Est Pt Level 3 (43622) Complex EM visit Add On G2211 Diagnoses Strain of right gastrocnemius muscle S86.111A
[2025-08-18 11:41] VITALS: BMI 30.5
--- OUTSIDE RECORDS SUMMARY | 2025-08-18 13:25 | XMS_ITS | Patient Health Record ---
Author Organization [facility] [place] Address [address] [place] [address] Care Team Providers Care Medical Technologist Name Role Phone David GAMBLE, Rina Lundberg Primary Care Provider Un available Amy Mora Unavailable [phone] Allergies No Known Allergies Reason For Referral [...] Provider Speciality Internal M edicine [facility]erred Provider Amy Mora Referred Address [address] [facility],[place], [place],[address], Referred Provider Specialty Podiatry Referral Priority Routine [...] Status Risk Notes Problem Plantar fascial fibromatosis (76879047) Plantar fasciitis, bilateral (M72.2) Active confirmed Vital Signs Blood pressure diastolic 80 mm Hg 04/19/2025 Height 1vd51jh in 04/19/2025 Blood pressure systolic 120 mm Hg 04/19/2025 Weight 200 lbs 04/19/2025 BMI 28.69 kg/m2 04/19/2025 Encounters Encounter Location Date Provider Diagnosis [address] [address] 02/08/2025 Amy Mora Pain in right foot M79.671 ; Plantar fasciitis, bilateral M72.2 ; Other myositis of right foot M60.871 ; Bursitis of right foot M77.51 ; Pain in left foot M79.672 ; Other myositis of left foot M60.872 and Bursitis of left foot M77.[address] [address] 04/19/2025 Amy Mora Plantar fasciitis, bilateral M72.2 ; Pain in left foot M79.672 ; Other myositis of left foot M60.872 and Bursitis of left foot M77.[address] [address] 01/16/2025 Amy Mora [address] [address] 02/08/2025 Amy Mora [facility] [address] [place] [address] 02/08/2025 Amy Perica [facility] [address] [place] [address] 06/06/2025 Amy Servina [facility] [address] [place] [address] 06/07/2025 [facility] [place] [address] [place] [address] 06/26/2025 Amy Mora Assessments Encounter Date Diagnosis [...] Insured Coverage Start Date Coverage End Date [facility] Plan [address] [facility] [place] [id number] Jonny Collin Self - patient is the insured Medical (General) History Medical History History ICD Code Anemia Anxiety Arthritis Back,Hip,and Knee pain covid-19 Depression Measles Chicken pox Leukopenia Surgical History Surgery Date(Month/Year) STL Fusion Right Hand 01/2008
--- OUTSIDE RECORDS SUMMARY | 2025-08-18 13:25 | XMS_ITS | Patient Health Record ---
Author Organization [facility] Address [address] [place] [address] Care Team Providers Care Social Services Manager Name Role Phone David GAMBLE, Rina Primary Care Provider Darren Joseph Unavailable [phone] Allergies No Known Allergies Reason For Referral [...] Status Risk Notes Problem Irritable bowel syndrome (76176475) Irritable bowel syndrome (K58.9) Active confirmed Problem 984986532 Encounter for screening for malignant neoplasm of colon (Z12.11) Active confirmed Problem Screening for malignant neoplasm of rectum (585126445) Encounter for screening for malignant neoplasm of rectum (Z12.12) Active confirmed Problem Gastroesophageal reflux disease (175010115) Gastroesophageal reflux disease (K21.9) Active confirmed Problem 42909749 Preprocedural examination (Z01.818) Active confirmed Problem 533145596 Family history o f colon cancer (Z80.0) Active confirmed Problem Gastroesophageal reflux disease (908093530) GERD (gastroesophageal reflux disease) (K21.9) Active confirmed Problem Albarado esophagus (028072858) 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) Active confirmed Problem Generalized abdominal pain (016070665) Abdominal pain, acute, generalized (R10.84) Active confirmed Problem Gastroesophageal reflux disease (238512219) Chronic GERD (K21.9) Active confirmed Plan Of [...] Insured Coverage Start Date Coverage End Date [facility] [address] [place], [place] [phone] [id number] CLAYTON FREITAS Self - patient is the insured Medical (General) History Medical History History ICD Code Denies NH,DM,CVA,Lung disease,renal dise ase Depression BPH Neg. colonoscopy in 03/2016 and 11/2020 GERD-EGD 11/2020 with [facility] and a HH. Biopsies from the Albarado's esophagus were negative for dysplasia. Duodenal biopsies were negative for celiac disease Irritable bowel syndrome. Surgical History Surgery Date(Month/Year) STL Fusion right hand 2007
== END 2025-08-18 11:44 | disposition home or self-care (01) ==
LOC: HO.HOS 11:29
PROVIDERS: Visit Provider Physician Assistant
DX: S86.111A Strain of other muscle(s) and tendon(s) of posterior muscle group at lower leg level, right leg, initial encounter (principal)
CPT/HCPCS: 99213

== ENCOUNTER → 2025-08-18 11:28 | Outpatient (BNVA) | payer OTHER, SELFPAY | PROVIDERS: Visit Provider Physician Assistant | DX: S86.111D Strain of other muscle(s) and tendon(s) of posterior muscle group at lower leg level, right leg, subsequent encounter (principal) | CPT/HCPCS: 99212 ==

== ENCOUNTER 2025-08-24 10:00 | Outpatient (RCR) | payer OTHER, SELFPAY ==
--- NOTE | 2025-07-20 10:56 | MHC.PT.EP ---
[facility] [place] [facility] [place] [facility] [place] [facility] [address] Reg Roe [address] [phone] F: [phone] F: [phone] F: [phone] F: [phone] Physical Therapy Plan of Care Date of Evaluation: 07/20/25 Date of Surgery: N/A Diagnosis: strain of right gastrocnemius muscle (RL) Assessment: pt is a 60 y/o male presenting to physical therapy w/ referring diagnosis of strain of right gastrocnemius muscle. I am less suspicious of Achilles tendon rupture. ? intramuscular tear given significance of bruising and swelling. He has hamstring involvement as well. Impairments include pain, decreased range of motion, decreased strength, impaired functional mobility, impaired postural awareness, and altered ambulation mechanics. pt is a good candidate for skilled PT due to age, potential remediation of impairments, typical disease/condition progression and prognosis, comorbidities, and motivation. pt would benefit from skilled PT intervention to provide a tailored strengthening and stretching exercise program, functional training, gait training, postural re-training, neuromuscular re-education, modalities as needed for pain, equipment safety demonstration. Frequency and Duration: The patient will be seen 2x/wk for 6 wks Short Term Goals: pt will be I w/ HEP to promote self-management of condition. pt will improve R ankle DF by at least 15* to promote normalized gait mechanics on even ground. Senior Care Goals: pt will report a statistically significant improvement in self-reported outcome measure, LEFI, to promote return to PLOF. pt will improve R PF strength by at least 1 MMT grade to promote ease in terminal stance/push off on R LE during ambulation. Treatment Plan: Modalities to reduce pain, spasms and effusion. Manual therapy to restore motion and function. Therapeutic exercise to improve strength and flexibility. Neuromuscular re-education for posture and balance. Therapeutic activities to return to functional activities of daily living. Electronically signed by: Aurora Fraga PT, DPT Please sign and return to therapist. Thank you for your referral.
--- NOTE | 2025-09-19 16:12 | MHC.PT.DC ---
[facility] [place] [facility] [place] [facility] [place] [facility] [address] Reg Roe [address] [facility] [phone] F: [phone] F: [phone] F: [phone] F: [phone] Physical Therapy Discharge Report Diagnosis: strain of right gastrocnemius muscle (RL) Date of Surgery: N/A Date of Evaluation: 07/20/25 Date of Discharge: 09/19/25 Treatments to Date: 11 Cancellations to Date: 2 No Shows to Date: 0 Discharge Status: Improved Function Independent with HEP Discharge Summary: The patient was reporting minimal to no calf/foot/ankle pain towards the end of his plan of care. He was able to navigate a ladder without reproduction of pain. He was independent with his home exercise program. He is discharged from this physical therapy plan of care. Electronically signed by: Aurora Fraga PT, DPT Please sign and return to therapist. Thank you for your referral.
== END 2025-09-19 16:12 | disposition home or self-care (01) ==
LOC: HO.PT 10:00
PROVIDERS: PCP Internal Medicine; Visit Provider Internal Medicine
DX: S86.111D Strain of other muscle(s) and tendon(s) of posterior muscle group at lower leg level, right leg, subsequent encounter (principal); X58.XXXD Exposure to other specified factors, subsequent encounter
CPT/HCPCS: 97110; 97140; 97162; 97164; 97530